=== PATIENT | male | born 1995 | race African-American/Black ===

== ENCOUNTER 2016-12-26 21:16 | Emergency (ER) | payer SELFPAY ==
[~2016-12-26] VITALS: Ht 182.9 cm; Wt 77.0 kg
[~2016-12-26 21:16] MED LIST: CLIN150 PO; CONTOUR NEXT EZ BLEZ XX; DOCU1CAP39 PO; GLUCOMETER XX; GLUCOMTESTSTRIPS XX; IBUP600 PO; LACT20SO4 PO; LEVEMIR SQ; LISI10 PO; OMEP20TA39 PO; OXYC1SOL5 PO; RANI150 PO; Z.0.WALKERFRONT; insulin syringes SQ; syringes for insulin SQ
[2016-12-26 21:19] VITALS: BP 163/100; PULSE 114; RESP 16; TEMP 97.9; O2SAT 99
[2016-12-26] MEDS ORDERED: SODIUM CHLOR 0.9% 1000 ML INJ 1,000 ML IV SCH (21:49)
--- NOTE | 2016-12-26 21:57 | PD ---
HPI Chief Complaint: Pain: Acute or Chronic Time Seen by Provider: 21:52 Travel History International Travel<30 days: No Contact w/Intl Traveler<30days: No Traveled to known affect area: No History of Present Illness HPI Patient comes in complaining of intermittent rib, right upper quadrant, and epigastric pain ongoing since September. Pain is more constant over the past 2 weeks. Patient has been taking ibuprofen with no improvement of symptoms. Pain is worse with deep inspiration and certain movement as well as eating or drinking too much. Patient states he contacted his primary care doctor in November prescribed naproxen that did not seem to help his symptoms. Patient denies any trauma, fevers, nausea, vomiting, loss change in bowel or bladder, back pain, numbness or tingling anywhere, or anything anything similar to this in the past. Patient reports he is a type I diabetic and has HIV that is not currently detectable. Patient is uncertain how he got HIV denies any IV drug use. PFSH Past Medical History Hx Anticoagulant Therapy: No Arthritis: No Asthma: No Autoimmune Disease: No Heart Rhythm Problems: No Cancer: No Cardiovascular Problems: No High Cholesterol: No Chemotherapy: No Chest Pain: No Congestive Heart Failure: No COPD: No Cerebrovascular Accident: No Diabetes: Yes Endocrine: No GERD: No Genitourinary: No Hiatal Hernia: No Immune Disorder: No Kidney Stones: No Musculoskeletal: No Neurologic: No Psychiatric: No Reproductive: No Respiratory: No Migraines: Yes Radiation Therapy: No Renal Failure: No Seizures: No Sickle Cell Disease: No Sleep Apnea: No Thyroid Disease: No Ulcer: No Past Surgical History Abdominal Surgery: No AICD: No Arteriovenous Shunt: No Cardiac Surgery: No Ear Surgery: No Endocrine Surgery: No Eye Surgery: No Genitourinary Surgery: No Gynecologic Surgery: No Insulin Pump: No Joint Replacement: No Oral Surgery: No Pacemaker: No Thoracic Surgery: No Other Surgery: Yes (HERNIA REPAIR ) Social History Alcohol Use: No Tobacco Use: No Substance Use: No Allergies-Medications (Allergen,Severity, Reaction): Coded Allergies: No Known Allergies (Unverified , 12/26/16) Reported Meds & Prescriptions Reported Meds & Active Scripts Active Zantac (Ranitidine HCl) 150 Mg Tab 150 Mg PO BID Carafate Liq (Sucralfate) 1 Gm/10 Ml Susp 1 Gm PO QID on empty stomach Hm Omeprazole (Omeprazole) 20 Mg Tab 20 Mg PO DAILY 14 Days Cleocin (Clindamycin HCl) 150 Mg Cap 300 Mg PO Q6HR 14 Days Stop date 07/02/16 Levemir (Insulin Detemir) Inj 18 Units SQ DAILYAC 30 Days Levemir (Insulin Detemir) Inj 20 Units SQ HS 30 Days Zantac 150 Mg Tab (Ranitidine HCl) 150 Mg Tab 150 Mg PO Q12HR 10 Days Motrin 600 Mg Tab (Ibuprofen) 600 Mg Tab 600 Mg PO Q6HR Levemir (Insulin Detemir) Inj 18 Units SQ HS 30 Days Contour Next EZ Blood Glucose Meter (Device) Device 1 Unit XX DIRECTED Glucometer Test Strips (Glucomteststrips) Box 1 Box XX Glucometer Kit 1 Kit XX Walker Front Wheel (Z.0.TipTap) Device 1 Unit Lactulose 30 Ml Syrp 30 Ml PO TID 30 Days Colace 100 Mg Cap (Docusate Sodium) 100 Mg Cap 100 Mg PO Q12H 30 Days Prinivil 10 mg (Lisinopril) 10 Mg Tab 10 Mg PO DAILY 30 Days Oxycodone/Acetaminophen 5-325 mg/5Ml (Oxycodone W/ Acetaminophen) 5 mg/325 mg Tab 1 Tab PO Q6H PRN [insulin syringes] 1 Syringe SQ BID [syringes for insulin] Syringe SQ BID Review of Systems Except as stated in HPI: all other systems reviewed are Neg Physical Exam Narrative GENERAL: Well-developed, well nourished, in no acute distress, and non-ill appearing. SKIN: Warm and dry. HEAD: Atraumatic. Normocephalic. EYES: Pupils equal and round. EOMI. No scleral icterus. No injection or drainage. ENT: No nasal bleeding or discharge. Mucous membranes pink and moist. NECK: Trachea midline. Supple. No nuclear rigidity. CARDIOVASCULAR: Tachycardia rate with regular rhythm. No murmur appreciated. RESPIRATORY: No accessory muscle use. No respiratory distress. Clear to auscultation. Breath sounds equal bilaterally. GASTROINTESTINAL: Abdomen soft, nondistended. Hepatic and splenic margins not palpable. Normal bowel sounds 4. No pulsatile mass. Patient reports tenderness to palpation right upper quadrant and epigastric region. MUSCULOSKELETAL: No obvious deformities. No clubbing. No cyanosis. No edema. Full range of motion. NEUROLOGICAL: Awake and alert. No obvious cranial nerve deficits. Motor grossly within normal limits. Normal speech. PSYCHIATRIC: Appropriate mood and affect; insight and judgment normal. Data Data Last Documented VS Vital Signs Date Time Temp Pulse Resp B/P Pulse Ox O2 Delivery O2 Flow Rate FiO2 12/27/16 00:57 99 14 144/89 100 Room Air 12/26/16 21:19 97.9 Orders Complete Blood Count With Diff (12/26/16 21:49) Comprehensive Metabolic Panel (12/26/16 21:49) Lipase (12/26/16 21:49) Prothrombin Time / Inr (Pt) (12/26/16 21:49) Act Partial Throm Time (Ptt) (12/26/16 21:49) Urinalysis - C+S If Indicated (12/26/16 21:49) Iv Access Insert/Monitor (12/26/16 21:49) Ecg Monitoring (12/26/16 21:49) Oximetry (12/26/16 21:49) Sodium Chlor 0.9% 1000 Ml Inj (Ns 1000 M (12/26/16 21:49) Sodium Chloride 0.9% Flush (Ns Flush) (12/26/16 22:00) Electrocardiogram (12/26/16 21:49) Chest, Single Ap (12/26/16 21:49) Magnesium (Mg) (12/26/16 21:49) Us Abdomen Gallbladder (12/26/16 ) Urine Culture (12/26/16 22:15) Azithromycin Powd Pack (Zithromax Powd P (12/27/16 00:00) Ceftriaxone Inj (Rocephin Inj) (12/27/16 00:00) Al-Mag Hy-Si 40-40-4 Mg/Ml Liq (Mag-Al P (12/27/16 00:00) Lidocaine 2% Viscous (Xylocaine 2% Visco (12/27/16 00:00) Labs Laboratory Tests Test 12/26/16 12/26/16 22:12 22:15 White Blood Count 5.2 TH/MM3 Red Blood Count 4.36 MIL/MM3 Hemoglobin 13.6 GM/DL Hematocrit 38.6 % Mean Corpuscular Volume 88.5 FL Mean Corpuscular Hemoglobin 31.2 PG Mean Corpuscular Hemoglobin 35.3 % Concent Red Cell Distribution Width 13.7 % Platelet Count 222 TH/MM3 Mean Platelet Volume 7.2 FL Neutrophils (%) (Auto) 46.0 % Lymphocytes (%) (Auto) 42.6 % Monocytes (%) (Auto) 10.9 % Eosinophils (%) (Auto) 0.2 % Basophils (%) (Auto) 0.3 % Neutrophils # (Auto) 2.4 TH/MM3 Lymphocytes # (Auto) 2.2 TH/MM3 Monocytes # (Auto) 0.6 TH/MM3 Eosinophils # (Auto) 0.0 TH/MM3 Basophils # (Auto) 0.0 TH/MM3 CBC Comment DIFF FINAL Differential Comment Prothrombin Time 10.4 SEC Prothromb Time International 0.9 RATIO Ratio Activated Partial 21.8 SEC Thromboplast Time Sodium Level 140 MEQ/L Potassium Level 4.3 MEQ/L Chloride Level 105 MEQ/L Carbon Dioxide Level 27.7 MEQ/L Anion Gap 7 MEQ/L Blood Urea Nitrogen 13 MG/DL Creatinine 0.82 MG/DL Estimat Glomerular Filtration 144 ML/MIN Rate Random Glucose 126 MG/DL Calcium Level 8.9 MG/DL Magnesium Level 2.1 MG/DL Total Bilirubin 0.4 MG/DL Aspartate Amino Transf 66 U/L (AST/SGOT) Alanine Aminotransferase 62 U/L (ALT/SGPT) Alkaline Phosphatase 62 U/L Total Protein 8.7 GM/DL Albumin 3.5 GM/DL Lipase 56 U/L Urine Color YELLOW Urine Turbidity CLEAR Urine pH 6.0 Urine Specific [place] 1.024 Urine Protein 100 mg/dL Urine Glucose (UA) TRACE mg/dL Urine Ketones NEG mg/dL Urine Occult Blood MOD Urine Nitrite NEG Urine Bilirubin NEG Urine Urobilinogen LESS THAN 2.0 MG/DL Urine Leukocyte Esterase NEG Urine RBC 26 /hpf Urine WBC 25 /hpf Urine Squamous Epithelial <1 /hpf Cells Urine Bacteria OCC /hpf Urine Hyaline Casts 1 /lpf Urine Mucus FEW /lpf Microscopic Urinalysis Comment CULTURE INDICATED MDM Medical Decision Making Medical Screen Exam Complete: Yes Emergency Medical Condition: Yes Interpretation(s) EKG reviewed by Dr. Ward, shows sinus tachycardia with ventricular rate of 111. No STEMI. Differential Diagnosis Pancreatitis, hepatitis, biliary colic, cholecystitis, pneumonia, pneumothorax, costochondritis, dehydration, other Narrative Course The patient presented with upper epigastric abdominal pain suspicious for gastritis. There was no significant history of diarrhea and no fever. The patient appeared comfortable, well hydrated and the abdominal exam was minimally tender to me. Laboratory and radiographic/sonographic evaluation revealed no significant abnormality. There was no evidence of an acute, surgical abdomen at this time. There was no clinical evidence to support cholecystitis/cholelithiasis, pancreatitis, perforation of gastric ulcer, colitis, diverticulitis, bacterial peritonitis, obstruction, volvulus, early appendicitis, or hernial incarceration or strangulation nor significant GIB at this time. There was no evidence to support vascular pathology such as AAA, mesenteric ischemia. There was also no clinical evidence by history, exam or risk factors to suggest atypical presentation of cardiac disease such as ACS, AMI or atypical angina. During the course of the ED visit, the patient noted improvement. Clinical picture was discussed with the patient, as well as plan of care. The patient was instructed to follow up with their physician and GI. Abdominal pain warnings were discussed with the patient. The patient is to return if worsens, pain worsens or changes, develop fever, inability to tolerate fluids with or without vomiting, unable to establish follow up or as needed. The patient agrees with plan. Patient in no obvious distress upon re-evaluation. All pertinent laboratory/ Radiology result(s) discussed with patient. Discussed patient with Dr. Ward, who saw and evaluated the patient and recommends sending patient with Carafate and Zantac after giving patient dose of Rocephin, Zithromax, and a GI cocktail here. Any questions/concerns in reference to patient diagnosis/condition discussed and clarified prior to patient's discharge. Reinforced sheer importance of close follow up with patient's primary physician or primary care clinic and GI. Instructed patient to return to ED immediately, if symptoms return/worsen. Pt showed understanding of above instructions. Further instructions and recommendations were detailed in discharge paperwork. Pt ambulated without difficulty out of ED at discharge. Diagnosis Primary Impression: Epigastric abdominal pain Additional Impressions: UTI (urinary tract infection) Qualified Code: N39.0 - Urinary tract infection with hematuria, site unspecified Sludge in gallbladder Referrals: Tyler Reed MD Patient Instructions: Epigastric Pain (ED), General Instructions, Urinary Tract Infection in Men (DC) Additional Instructions: Follow-up with your primary care physician and GI next week. Take all medication as prescribed. Return to the emergency department if symptoms get worse. Med/Other Pt SpecificInfo: Prescription(s) given Scripts Ranitidine (Zantac)150 Mg Pvl251 Mg PO BID #60 TAB Ref 0 Prov:Cheli Ward MD 12/26/16 Sucralfate Liq (Carafate Liq)1 Gm/10 Ml Susp1 Gm PO QID #1200 ML Ref 0 on empty stomach Prov:Cheli Ward MD 12/26/16 Disposition: 01 DISCHARGE HOME Condition: Stable Austen Poole Dec 26, 2016 21:57
[2016-12-26] MEDS ORDERED: SODIUM CHLORIDE 0.9% FLUSH 5 ML FLUSH IVF PRN (22:00)
--- NOTE | 2016-12-26 22:06 | RADRPT ---
EXAM DATE/TIME: 12/26/2016 22:02 [facility] COMPARISON: CHEST SINGLE AP, June 06, 2016, 10:51. INDICATIONS : Chest pain, denies injury MEDICAL HISTORY : Diabetes mellitus type I. SURGICAL HISTORY : None. Hydrocele ENCOUNTER: Initial ACUITY: 3 months PAIN SCORE: 8/10 LOCATION: chest FINDINGS: A single view of the chest demonstrates the lungs to be symmetrically aerated without evidence of mas s, infiltrate or effusion. The cardiomediastinal contours are unremarkable. Osseous structures are intact. CONCLUSION: No evidence of acute cardiopulmonary disease. Lucas Montano MD on December 26, 2016 at 22:05 Board Certified Radiologist. This report was verified electronically.
[2016-12-26 22:26] LABS: AUTOMATED NEUTROPHIL # 2.4 TH/MM3 (1.8-7.7); BASOPHIL % 0.3 % (0.0-2.0); EOSINOPHIL % 0.2 % (0.0-4.0); HEMATOCRIT 38.6 % (39.0-51.0); HEMO FLAGS DIFF FINAL; LYMPH % 42.6 % (9.0-44.0); LYMPHOCYTE # 2.2 TH/MM3 (1.0-4.8); MEAN CELL VOLUME 88.5 FL (80.0-100.0); MEAN CORPUSCULAR HEMOGLOBIN 31.2 PG (27.0-34.0); MEAN CORPUSCULAR HGB CONC 35.3 % (32.0-36.0); MONO % 10.9 % (0.0-8.0); PLATELET COUNT 222 TH/MM3 (150-450); RED BLOOD COUNT 4.36 MIL/MM3 (4.50-5.90); RED CELL DISTRIBUTION WIDTH 13.7 % (11.6-17.2); WHITE BLOOD COUNT 5.2 TH/MM3 (4.0-11.0)
[2016-12-26 22:41] LABS: BACTERIA, URINE OCC /hpf; BLOOD, URINE MOD (NEG); COMMENT (UR) CULTURE INDICATED; CULTURE IF INDICATED CULTURE INDICATED; GLUCOSE,URINE TRACE mg/dL (NEG); HYALINE CAST, URINE 1 /lpf (RARE); KETONE, URINE NEG (NEG); MUCUS URINE FEW /lpf (OCC); NITRITE,URINE NEG (NEG); SQUAMOUS EPITHELIAL CELL URINE <1 /hpf (0-5); URINE COLOR YELLOW (YELLW/STRAW)
[2016-12-26 22:56] LABS: APTT (PATIENT) 21.8 SEC (24.3-30.1); INTERNATIONAL NORMALIZED RATIO 0.9 RATIO; PROTHROMBIN TIME - PATIENT 10.4 SEC (9.8-11.6)
[2016-12-26 22:57] LABS: ALT (GPT) 62 U/L (12-78); ANION GAP 7 MEQ/L (5-15); AST (GOT) 66 U/L (15-37); BICARBONATE 27.7 MEQ/L (21.0-32.0); BLOOD UREA NITROGEN 13 MG/DL (7-18); CHLORIDE 105 MEQ/L (98-107); GLOMERULAR FILTRATION RATE 144 ML/MIN (>89); MAGNESIUM 2.1 MG/DL (1.5-2.5); POTASSIUM 4.3 MEQ/L (3.5-5.1); SODIUM (NA) 140 MEQ/L (136-145)
[2016-12-26 22:59] LABS: ALKALINE PHOSPHATASE 62 U/L (45-117); TOTAL BILIRUBIN ADULT 0.4 MG/DL (0.2-1.0)
--- NOTE | 2016-12-26 23:27 | RADRPT ---
EXAM DATE/TIME: 12/26/2016 22:39 [facility] COMPARISON: No previous studies available for comparison. INDICATIONS : Right upper quadrant pain. MEDICAL HISTORY : Kidney infection. Migraines. Diabetes. Post traumatic stress disorder. SURGICAL HISTORY : Hernia repair. ENCOUNTER: Initial ACUITY: 2 weeks PAIN SCORE: 8/10 LOCATION: Right upper quadrant MEASUREMENTS: LIVER: 16.3 cm length COMMON DUCT: 3 mm RIGHT KIDNEY: 11.7 x 6.3 x 5.3 cm FINDINGS: LIVER: Normal echotexture without focal lesion or ductal dilatation. Hepatopedal flow is seen in the portal vein. COMMON DUCT: No intraluminal mass or stone visualized. GALLBLADDER: Contains no stones, demonstrates no wall thickening or pericholecystic fluid. Mild amount of echogeni c sludge in the lumen. Negative sonographic Momin's sign. PANCREAS: The visualized portions are within normal limits. RIGHT KIDNEY: No evidence of hydronephrosis, stone, or mass. CONCLUSION: Mild amount of sludge within the gallbladder. No calcified stones. Normal dimension common hepatic duct. Adair Velez MD on December 26, 2016 at 23:24 Board Certified Radiologist. This report was verified electronically.
[2016-12-26] MEDS ORDERED: ZANT150T2 PO (23:54)
[2016-12-26] MEDS ORDERED: CARA1SUS3 PO (23:54)
[2016-12-27] MEDS ORDERED: AZITHROMYCIN PWD FOR SUSP 1 GM PACKET PO ONE
[2016-12-27] MEDS ORDERED: LIDOCAINE VISCOUS 2% SOLN 15 ML UDC PO ONE
[2016-12-27] MEDS ORDERED: ALUMINUM/MAGNESIUM/SIMETH 30 ML CUP PO ONE
[2016-12-27] MEDS ORDERED: cefTRIAXone INJ 1,000 MG in SODIUM CHLORIDE 0.9% INJ 100 ML IV ONE ×2
--- NOTE | 2016-12-27 00:18 | PD ---
Data Data Last Documented VS Vital Signs Date Time Temp Pulse Resp B/P Pulse Ox O2 Delivery O2 Flow Rate FiO2 12/26/16 22:27 114 12/26/16 21:19 97.9 16 163/100 99 Room Air Orders Complete Blood Count With Diff (12/26/16 21:49) Comprehensive Metabolic Panel (12/26/16 21:49) Lipase (12/26/16 21:49) Prothrombin Time / Inr (Pt) (12/26/16 21:49) Act Partial Throm Time (Ptt) (12/26/16 21:49) Urinalysis - C+S If Indicated (12/26/16 21:49) Iv Access Insert/Monitor (12/26/16 21:49) Ecg Monitoring (12/26/16 21:49) Oximetry (12/26/16 21:49) Sodium Chlor 0.9% 1000 Ml Inj (Ns 1000 M (12/26/16 21:49) Sodium Chloride 0.9% Flush (Ns Flush) (12/26/16 22:00) Electrocardiogram (12/26/16 21:49) Chest, Single Ap (12/26/16 21:49) Magnesium (Mg) (12/26/16 21:49) Us Abdomen Gallbladder (12/26/16 ) Urine Culture (12/26/16 22:15) Azithromycin Powd Pack (Zithromax Powd P (12/27/16 00:00) Ceftriaxone Inj (Rocephin Inj) (12/27/16 00:00) Al-Mag Hy-Si 40-40-4 Mg/Ml Liq (Mag-Al P (12/27/16 00:00) Lidocaine 2% Viscous (Xylocaine 2% Visco (12/27/16 00:00) Labs Laboratory Tests Test 12/26/16 12/26/16 22:12 22:15 White Blood Count 5.2 TH/MM3 Red Blood Count 4.36 MIL/MM3 Hemoglobin 13.6 GM/DL Hematocrit 38.6 % Mean Corpuscular Volume 88.5 FL Mean Corpuscular Hemoglobin 31.2 PG Mean Corpuscular Hemoglobin 35.3 % Concent Red Cell Distribution Width 13.7 % Platelet Count 222 TH/MM3 Mean Platelet Volume 7.2 FL Neutrophils (%) (Auto) 46.0 % Lymphocytes (%) (Auto) 42.6 % Monocytes (%) (Auto) 10.9 % Eosinophils (%) (Auto) 0.2 % Basophils (%) (Auto) 0.3 % Neutrophils # (Auto) 2.4 TH/MM3 Lymphocytes # (Auto) 2.2 TH/MM3 Monocytes # (Auto) 0.6 TH/MM3 Eosinophils # (Auto) 0.0 TH/MM3 Basophils # (Auto) 0.0 TH/MM3 CBC Comment DIFF FINAL Differential Comment Prothrombin Time 10.4 SEC Prothromb Time International 0.9 RATIO Ratio Activated Partial 21.8 SEC Thromboplast Time Sodium Level 140 MEQ/L Potassium Level 4.3 MEQ/L Chloride Level 105 MEQ/L Carbon Dioxide Level 27.7 MEQ/L Anion Gap 7 MEQ/L Blood Urea Nitrogen 13 MG/DL Creatinine 0.82 MG/DL Estimat Glomerular Filtration 144 ML/MIN Rate Random Glucose 126 MG/DL Calcium Level 8.9 MG/DL Magnesium Level 2.1 MG/DL Total Bilirubin 0.4 MG/DL Aspartate Amino Transf 66 U/L (AST/SGOT) Alanine Aminotransferase 62 U/L (ALT/SGPT) Alkaline Phosphatase 62 U/L Total Protein 8.7 GM/DL Albumin 3.5 GM/DL Lipase 56 U/L Urine Color YELLOW Urine Turbidity CLEAR Urine pH 6.0 Urine Specific [place] 1.024 Urine Protein 100 mg/dL Urine Glucose (UA) TRACE mg/dL Urine Ketones NEG mg/dL Urine Occult Blood MOD Urine Nitrite NEG Urine Bilirubin NEG Urine Urobilinogen LESS THAN 2.0 MG/DL Urine Leukocyte Esterase NEG Urine RBC 26 /hpf Urine WBC 25 /hpf Urine Squamous Epithelial <1 /hpf Cells Urine Bacteria OCC /hpf Urine Hyaline Casts 1 /lpf Urine Mucus FEW /lpf Microscopic Urinalysis Comment CULTURE INDICATED MDM Supervised Visit with [facility]EL[facility]: Yes Narrative Course The history, exam, and medical decision-making in the associated midlevel provider note were completed with my assistance. I reviewed and agree with the findings presented. I attest that I had a [id number] encounter with the patient on the same day, and personally performed and documented my assessment and findings in the medical record. *My assessment and Findings: This is a 21-year-old male who has a history of type 1 diabetes and HIV who presents to the emergency department with 2 months of pain primarily in his epigastrium that radiates under both ribs, worse with eating and worse with taking deep breaths. He says he's been struggling with insomnia recently and it's been waking him up in the middle the night. He does have extensive history of medical problems including septic arthritis, and diabetic foot infections. He was placed on a monitor and an IV was established. Labs were obtained which were all reassuring. A right upper quadrant ultrasound was performed which was negative for cholecystitis. He is quite tender in the epigastrium. I suspect the patient may have gastritis or peptic ulcer disease which is causing his symptoms. His symptoms are subacute. I don't suspect a cardiac etiology based on the description of the symptoms. I considered pulmonary embolism but he is not hypoxic and this wouldn't explain the tenderness in his abdomen. I think the patient would most benefit by follow -up with outpatient gastroenterology for an endoscopy. I think he's safe for outpatient evaluation. He does have some white cells in his urine. He'll be treated empirically for possible urethritis but otherwise he doesn't look systemically ill. Scripts Ranitidine (Zantac)150 Mg Mnd255 Mg PO BID #60 TAB Ref 0 Prov:Cheli Ward MD 12/26/16 Sucralfate Liq (Carafate Liq)1 Gm/10 Ml Susp1 Gm PO QID #1200 ML Ref 0 on empty stomach Prov:Cheli Ward MD 12/26/16 Cheli Ward MD Dec 27, 2016 00:17
[2016-12-27 00:57] VITALS: BP 144/89; PULSE 99; RESP 14; O2SAT 100
--- NOTE | 2016-12-27 19:39 | EKG ---
Date Performed: 12/26/2016 Time Performed: 21:02:31 PTAGE: 21 years EKG: SINUS TACHYCARDIA NONSPECIFIC T-WAVE ABNORMALITY ABNORMAL RHYTHM ECG NO PREVIOUS TRACING DOCTOR: Nelson Dunn Interpretating Date/Time 12/27/2016 19:39:00
== END 2016-12-27 01:03 | disposition home or self-care (01) ==
LOC: NEPB 21:16
DX: R10.13 Epigastric pain (principal); N39.0 Urinary tract infection, site not specified; K82.9 Disease of gallbladder, unspecified; R94.31 Abnormal electrocardiogram [ECG] [EKG]
CPT/HCPCS: 71010; 76705; 80053; 81001; 83690; 83735; 85025; 85610; 85730; 87086; 93005; 96361; 96365; 99284; J0696; J7030

== ENCOUNTER 2017-12-22 22:35 | Emergency (ER) | payer BC ==
[~2017-12-22] VITALS: Ht 185.4 cm; Wt 95.0 kg
[~2017-12-22 22:35] MED LIST changes: +CARA1SUS3 PO; +DIAZ5 PO; +ELVI1TAB3 PO; +LISI10TA3 PO; +NAPR500 PO; +PANT40TA3 PO; +ZANT150T2 PO
[2017-12-22 23:01] VITALS: BP 159/77; PULSE 89; RESP 16; TEMP 98; O2SAT 99
--- NOTE | 2017-12-22 23:47 | PD ---
HPI Chief Complaint: Injury Time Seen by Provider: 23:34 Travel History International Travel<30 days: No Contact w/Intl Traveler<30days: No Traveled to known affect area: No History of Present Illness HPI 22-year-old black male presents to emergency Department with complaints of an avulsion of his left great toenail. The patient states that he has a history of insulin-dependent diabetes, and HIV. He states that he has not been able to stop the bleeding. It is minimal. He does not check his sugars. He states that he is compliant with his medications. Patient attends college here in [facility] Past Medical History Narrative Medical IDDM, HIV positive Hx Anticoagulant Therapy: No Arthritis: No Asthma: No Autoimmune Disease: No Heart Rhythm Problems: No Cancer: No Cardiovascular Problems: No High Cholesterol: No Chemotherapy: No Chest Pain: No Congestive Heart Failure: No COPD: No Cerebrovascular Accident: No Diabetes: Yes Patient Takes Glucophage: No Diminished Hearing: No Endocrine: No GERD: No Genitourinary: No Headaches: Yes Hiatal Hernia: No Hypertension: Yes Immune Disorder: Yes (HIV) Kidney Stones: No Musculoskeletal: No Neurologic: No Psychiatric: No Reproductive: No Respiratory: No Migraines: Yes Radiation Therapy: No Renal Failure: No Seizures: No Sickle Cell Disease: No Sleep Apnea: No Thyroid Disease: No Ulcer: No Tetanus Vaccination: Unknown Influenza Vaccination: No Past Surgical History Abdominal Surgery: No AICD: No Arteriovenous Shunt: No Cardiac Surgery: No Ear Surgery: No Endocrine Surgery: No Eye Surgery: No Genitourinary Surgery: No Gynecologic Surgery: No Insulin Pump: No Joint Replacement: No Oral Surgery: No Pacemaker: No Thoracic Surgery: No Other Surgery: Yes Social History Alcohol Use: Yes (OCC) Tobacco Use: No Substance Use: No Allergies-Medications (Allergen,Severity, Reaction): Coded Allergies: piperacillin (Unverified Allergy, Severe, Hives, 12/22/17) Given Zosyn and Toradol at same time with allergic reaction of hives; uncertain at this time which drug caused the allergic reaction tazobactam (Unverified Allergy, Severe, Hives, 12/22/17) Given Zosyn and Toradol at same time with allergic reaction of hives; uncertain at this time which drug caused the allergic reaction ketorolac (Unverified Allergy, Unknown, Hives, 12/22/17) Given Zosyn and Toradol at same time with allergic reaction of hives; uncertain at this time which drug caused the allergic reaction Reported Meds & Prescriptions Reported Meds & Active Scripts Active Zantac (Ranitidine HCl) 150 Mg Tab 150 Mg PO BID Carafate Liq (Sucralfate) 1 Gm/10 Ml Susp 1 Gm PO QID on empty stomach Hm Omeprazole (Omeprazole) 20 Mg Tab 20 Mg PO DAILY 14 Days Cleocin (Clindamycin HCl) 150 Mg Cap 300 Mg PO Q6HR 14 Days Stop date 07/02/16 Levemir (Insulin Detemir) Inj 18 Units SQ DAILYAC 30 Days Levemir (Insulin Detemir) Inj 20 Units SQ HS 30 Days Zantac 150 Mg Tab (Ranitidine HCl) 150 Mg Tab 150 Mg PO Q12HR 10 Days Motrin 600 Mg Tab (Ibuprofen) 600 Mg Tab 600 Mg PO Q6HR Levemir (Insulin Detemir) Inj 18 Units SQ HS 30 Days Contour Next EZ Blood Glucose Meter (Device) Device 1 Unit XX DIRECTED Glucometer Test Strips (Glucomteststrips) Box 1 Box XX Glucometer Kit 1 Kit XX Walker Front Wheel ([facility]) Device 1 Unit Lactulose 30 Ml Syrp 30 Ml PO TID 30 Days Colace 100 Mg Cap (Docusate Sodium) 100 Mg Cap 100 Mg PO Q12H 30 Days Prinivil 10 mg (Lisinopril) 10 Mg Tab 10 Mg PO DAILY 30 Days Oxycodone/Acetaminophen 5-325 mg/5Ml (Oxycodone W/ Acetaminophen) 5 mg/325 mg Tab 1 Tab PO Q6H PRN [insulin syringes] 1 Syringe SQ BID [syringes for insulin] Syringe SQ BID Naprosyn (Naproxen) 500 Mg Tab 500 Mg PO BID 10 Days Valium (Diazepam) 5 Mg Tab 5 Mg PO TID PRN Pantoprazole (Pantoprazole Sodium) 40 Mg Tab 40 Mg PO Q12HR 30 Days Lisinopril 10 Mg Tab 10 Mg PO DAILY 30 Days Reported Levemir Inj (Insulin Detemir) 1,000 unit/ 10 ML Vial 19 Units SQ DAILY Do not mix with any other Insulin. Levemir Inj (Insulin Detemir) 1,000 unit/ 10 ML Vial 21 Units SQ HS Do not mix with any other Insulin. Genvoya (Vrcnhmbcpspx-Gqihnibdgr-Ybqhnaeacqbn-Tenofvir) [phone] Mg Tab 1 Tab PO DAILY Review of Systems Except as stated in HPI: all other systems reviewed are Neg Physical Exam Narrative GENERAL: This is a well-nourished, well-developed patient, in no apparent distress. SKIN: No rashes, ecchymoses or lesions. Warm and dry. HEAD: Atraumatic. Normocephalic. EYES: PERRL, EOMI, no discharge or injection. No scleral icterus. EARS: Clear NOSE: Nasal turbinates appear normal. THROAT: Mucosa pink and moist. Airway patent. NECK: Trachea midline. supple, moves head freely. LUNGS: Clear to auscultation. CV: Regular in rhythm. ABDOMEN: Soft nontender. EXT: No clubbing cyanosis or edema. Left foot reveals a avulsion great toenail without complications. There is no active bleeding. 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 Data Data Last Documented VS Vital Signs Date Time Temp Pulse Resp B/P (MAP) Pulse Ox O2 Delivery O2 Flow Rate FiO2 12/22/17 23:01 98.0 89 16 159/77 (104) 99 Orders Orders Blood Glucose (12/22/17 23:47) Insulin Aspart Inj (Novolog Inj) (12/23/17 00:15) MDM Medical Decision Making Medical Screen Exam Complete: Yes Emergency Medical Condition: Yes Medical Record Reviewed: Yes Interpretation(s) Be GL 339. Differential Diagnosis MDM: High Differential diagnoses: Fracture, sprain, strain, dislocation, contusion, neurovascular injury, nail avulsion Narrative Course Patient's wound is dressed on his foot. There is no bleeding. His Accu-Chek shows a BGL at 339. He is given 8 units of NovoLog subcutaneous. Diagnosis Primary Impression: left great toenail avulsion Additional Impressions: IDDM hyperglycemia Patient Instructions: General Instructions Additional Instructions: Rest. Daily wound care with soap, water, Neosporin. Checked her blood sugar again in 1-2 hours. Monitor blood sugar on a daily basis. Follow-up with a medical doctor in 2 days for recheck. Disposition: 01 DISCHARGE HOME Condition: Stable Luis Antonio Francis Dec 22, 2017 23:47
[2017-12-23] MEDS ORDERED: INSULIN ASPART 1,000 UNITS/10 ML VIAL SQ ONE (00:15)
== END 2017-12-23 01:01 | disposition home or self-care (01) ==
LOC: NEPK 22:35
DX: S91.202A Unspecified open wound of left great toe with damage to nail, initial encounter (principal); E11.65 Type 2 diabetes mellitus with hyperglycemia; B20 Human immunodeficiency virus [HIV] disease; I10 Essential (primary) hypertension; Z88.8 Allergy status to other drugs, medicaments and biological substances; Z79.4 Long term (current) use of insulin; Z79.899 Other long term (current) drug therapy
CPT/HCPCS: 96372; 99283; J1815

== ENCOUNTER 2018-07-06 01:01 | Inpatient (IN) ==
[2018-07-06 01:34] LABS: Baso # (Auto) 0.1 th/mm3 (0.0-0.2); Baso % (Auto) 1.4 % (0.0-2.0); Eos % (Auto) 0.1 % (0.0-4.0); Hematocrit 39.5 % (39.0-51.0); Hemoglobin 13.6 gm/dL (13.0-17.0); Lymph # (Auto) 2.1 th/mm3 (1.0-4.8); Mean Corpuscular HGB Conc 34.5 % (32.0-36.0); Mean Corpuscular Hemoglobin 31.6 pg (27.0-34.0); Mean Corpuscular Volume 91.5 fL (80.0-100.0); Mono # (Auto) 0.4 th/mm3 (0.0-0.9); Mono % (Auto) 6.1 % (0.0-8.0); Neut # (Auto) 4.7 th/mm3 (1.8-7.7); Neut % (Auto) 64.4 % (16.0-70.0); Platelet Count 217 th/mm3 (150-450); Red Blood Count 4.32 mil/mm3 (4.50-5.90); Red Cell Distribution Width 13.3 % (11.6-17.2); White Blood Count 7.3 th/mm3 (4.0-11.0)
[2018-07-06 01:50] LABS: VBG Base Excess 0.2 mmol/L (-2-2); VBG Blood Gas Oxygen Content 15.6 Vol % (9.0-17.0); VBG PCO2 40 mmHG (44-48); VBG PH 7.41 (7.360-7.400); VBG PO2 44 mmHG (35-40)
[2018-07-06 01:50] LABS: Beta Hydroxybutyric Acid 0.06 mmol/L (0.00-0.39)
--- NOTE | 2018-07-06 01:50 | XR ---
EXAM DATE: 07/06/2018 1:42 AM EDT AGE/SEX: 22 years / Male INDICATIONS: Shortness of breath. Confusion today. CLINICAL DATA: This is the patient's initial encounter. Patient reports that signs and symptoms have been present for 1 day and indicates a pain score of Nonresponsive. MEDICAL/SURGICAL HISTORY: . Diabetes mellitus type I. . Hydrocele [place] [facility] [place]. . FINDINGS: A single AP view of the chest demonstrates the lungs to be symmetrically aerated without evidence of mass, infiltrate or effusion. The cardiomediastinal contours are unremarkable. Osseous structures a re intact. CONCLUSION: No acute disease Electronically signed by: Lucas Harper MD 07/06/2018 1:49 AM EDT
[2018-07-06] MEDS: Sod Chloride 0.9% Inj 1,000 ML IV.CONT SCH ×3 (01:54→15:40)
[2018-07-06 02:05] LABS: Amphetamine Screen,Urine Neg (Neg); Barbiturate Screen,Urine Neg (Neg); Cannabinoid Screen,Urine Neg (Neg); Cocaine Screen,Urine Neg (Neg)
[2018-07-06 02:07] LABS: Amorphous Sediment,Urine Rare /hpf; Bacteria,Urine Rare /hpf; Bilirubin,Urine Negative (Negative); Clarity,Urine Hazy (Clear); Color,Urine Yellow (Yellw/Straw); Glucose,Urine (UA) 500 or Greater mg/dL (Negative); Hyaline Casts,Urine 5 /lpf (0-3); Leukocyte Esterase,Urine Negative (Negative); Mucus,Urine Few /lpf (Occasional); Nitrite,Urine Negative (Negative); Specific Gravity,Urine 1.018 (1.002-1.035)
[2018-07-06 02:08] LABS: Opiate Screen,Urine Neg (Neg)
[2018-07-06 02:09] LABS: Activated Partial Thrombo Time 20.3 sec (24.3-30.1); Prothrombin Time 10.3 sec (9.8-11.6)
--- NOTE | 2018-07-06 02:14 | CT ---
EXAM DATE: 07/06/2018 2:08 AM EDT AGE/SEX: 22 years / Male INDICATIONS: Altered mental status. CLINICAL DATA: This is the patient's initial encounter. Patient reports that signs and symptoms have been present for 1 day and indicates a pain score of Nonresponsive. MEDICAL/SURGICAL HISTORY: None. None. RADIATION DOSE: 41.57 CTDI (mGy) [place] [facility] [place]. . TECHNIQUE: CT of the head without contrast. Using automated exposure control and adjustment of the mA and/or kV according to patient size, radiation dose was kept as low as reasonably achievable to ob tain optimal diagnostic quality images. DICOM format image data is available electronically for revi ew and comparison. FINDINGS: Cerebrum: The ventricles are normal for age. No evidence of midline shift, mass lesion, hemorrhage or acute infarction. No extraaxial fluid collections are seen. Posterior Fossa: The cerebellum and brainstem are intact. The 4th ventricle is midline. The cerebe llopontine angle is unremarkable. Extracranial: The visualized portion of the orbits is intact. Skull: The calvaria is intact. No evidence of skull fracture. CONCLUSION: Negative CT Head non contrast. . Electronically signed by: Lucas Harper MD 07/06/2018 2:13 AM EDT
[2018-07-06] MEDS ORDERED: Labetalol HCl Inj 100 MG/20 ML Vial IV.PUSH ONE ×3 (03:01→12:00)
[2018-07-06] MEDS: KCL 40 mEq/D5W/NaCl 0.9% Inj 1,000 ML IV.CONT SCH ×2 (04:14→15:40)
[2018-07-06] MEDS ORDERED: Acetaminophen 325 MG Tablet PO PRN (04:44)
[2018-07-06] MEDS ORDERED: Bisacodyl 10 MG Supp RECTAL PRN (04:44)
--- NOTE | 2018-07-06 04:45 | ED ---
HPI General Chief Complaint: Altered Mental Status Stated Complaint: confusion Time Seen by Provider: 07/06/18 01:16 Source: EMS and other (school mates) Mode of arrival: EMS Limitations: altered mental status History of Present Illness HPI narrative: 22 year old male presents to the emergency department by EMS transport from his school dorm where he was found around 1030 by classmates with altered mentation. Patient was last seen normal prior to this at 9:30 PM. Patient is a type I diabetic and takes insulin. Patient reportedly uses no substances and had normal behavior at 930. Patient had no known injury or fall. Patient was found sitting in his chair slightly slumped forward. Schoolmates set him up in the chair but noticed that he had just a fixed stare and would not talk with them but appeared to follow some other activities with his eyes. Paramedics were called and noted the patient to be somewhat catatonic in his behavior. No evidence of injury. Patient was sitting upright in a chair. Vital signs were noted to be hypertensive and tachycardic. Patient was afebrile but blood sugar was in the low 70s. Patient was administered oral glucose with minimal response. Patient was subsequently administered D50. Patient's blood sugar increased to 290. Patient's mentation was unchanged. Patient was persistently identified to be and a sinus tachycardia. Patient was given IV fluids. Patient was transported without incident. Upon arrival patient appears somewhat paranoid but observed staff and bedside schoolmate friends behavior is cooperative and follows commands. Patient remains afebrile blood sugar is stable in the 130s. Unknown amount of insulin administered prior to onset of symptoms. Unknown ingestants. No reported recent febrile illness. MD complaint: altered mental status Onset (ago): hour(s) Timing confirmed by: other (classmates) Severity: moderate Consistency of symptoms: constant Context: alcohol abuse (none known), drug abuse (none known), change in medication (none known), trauma (none known) and diabetes (type I) Associated symptoms: other (unable to obtain) Treatments prior to arrival: glucose and IV fluid Related Data Home Medications Medication Instructions Recorded Confirmed insulin lispro protamin-lispro 1 sliding scale dose SUB-Q UD 07/06/18 07/06/18 [Humalog Mix 50-50 Insuln U-100] Allergies Allergy/AdvReac Type Severity Reaction Status Date / Time piperacillin Allergy Severe Hives Unverified 12/22/17 23:04 tazobactam Allergy Severe Hives Unverified 12/22/17 23:04 ketorolac Allergy Unknown Hives Unverified 12/22/17 23:04 Review of Systems ROS Unobtainable ROS Unobtainable: unobtainable due to mental status PMFSH Medical History Medical History Type 1 diabetes (Acute) Surgical History Surgical History No history of previous surgery (Acute) Social History Social History Second Hand Smoke Exposure: No Smoking Status: Unknown if ever smoked How Often Do You Have a Drink Containing Alcohol: Never Recent Travel in [facility] within the Last 8 Weeks: No Recent Out of Country Travel within the Last 8 Weeks: No Immunization History Tetanus Immunization: <5 Years Hx Influenza Vaccine This Season: Yes Exam Narrative Exam Narrative: GENERAL: Well-nourished, well-developed patient. No acute distress no respiratory distress GCS 10. SKIN: Focused skin assessment warm/dry. HEAD: Normocephalic. Atraumatic no scalp soft tissue swelling tenderness abrasion laceration or bony abnormality to palpation EYES: No scleral icterus. No injection or drainage. Bilateral pupils equal round reactive to light extraocular movements intact NECK: Supple, trachea midline. No JVD or lymphadenopathy. No meningismus no nuchal rigidity. CARDIOVASCULAR: Increased regular rate and rhythm without murmurs, gallops, or rubs. RESPIRATORY: Breath sounds equal bilaterally. No accessory muscle use. GASTROINTESTINAL: Abdomen soft, non-tender, nondistended. MUSCULOSKELETAL: No cyanosis, or edema. BACK: Nontender without obvious deformity. No CVA tenderness. 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 regarding admission for altered mental status delirium hypertension substance ingestion Time: 05:38 Initial Documented Vital Signs Temperature 97.8 F 07/06/18 01:22 Pulse Rate 115 H 07/06/18 01:22 Respiratory Rate 16 07/06/18 01:22 Blood Pressure 195/96 H 07/06/18 01:22 Pulse Oximetry 100 07/06/18 01:22 Last Documented Vital Signs Temperature 97.8 F 07/06/18 01:22 Pulse Rate 101 H 07/06/18 05:05 Respiratory Rate 16 07/06/18 05:05 Blood Pressure 187/79 H 07/06/18 05:05 Pulse Oximetry 100 07/06/18 05:05 Medical Decision Making [facility] Narrative Medical decision making narrative: 22-year-old male presents with altered mentation otherwise no focality on exam symmetric movement of upper extremities and lower extremities with purpose of all movement and follows some commands Medical Screen Exam Complete: Yes Emergency Medical Condition: Yes Differential Diagnosis Differential Diagnosis: Altered mental status, polysubstance ingestion, uncontrolled diabetes, metabolic disorder, encephalopathy, delirium Medical Records Medical records reviewed: Yes I reviewed the patient's medical records. Lab Data Lab results reviewed: Yes I reviewed the patient's lab results. Result diagrams: 07/06/18 01:20 Lab Results 07/06/18 07/06/18 07/06/18 Range/Units 01:09 01:20 01:20 WBC 7.3 (4.0-11.0) th/mm3 RBC 4.32 L (4.50-5.90) mil/mm3 Hgb 13.6 (13.0-17.0) gm/dL POC Hgb (Calc) (13.0-17.0) g/dL Hct 39.5 (39.0-51.0) % POC Hct (39-51.0) % MCV 91.5 (80.0-100.0) fL MCH 31.6 (27.0-34.0) pg MCHC 34.5 (32.0-36.0) % RDW 13.3 (11.6-17.2) % Plt Count 217 (150-450) th/mm3 MPV 8.0 (7.0-11.0) fL Neut % (Auto) 64.4 (16.0-70.0) % Lymph % (Auto) 28.0 (9.0-44.0) % [place] % (Auto) 6.1 (0.0-8.0) % Eos % (Auto) 0.1 (0.0-4.0) % Baso % (Auto) 1.4 (0.0-2.0) % Neut # (Auto) 4.7 (1.8-7.7) th/mm3 Lymph # (Auto) 2.1 (1.0-4.8) th/mm3 [place] # (Auto) 0.4 (0.0-0.9) th/mm3 Eos # (Auto) 0.0 (0.0-0.4) th/mm3 Baso # (Auto) 0.1 (0.0-0.2) th/mm3 WBC Differential . Differential Comment Auto diff final PT 10.3 (9.8-11.6) sec INR 1.0 Ratio APTT 20.3 L (24.3-30.1) sec Puncture Site Patient Temperature VBG pH (7.360-7.400) VBG pCO2 (44-48) mmHG VBG pO2 (35-40) mmHG VBG HCO3 (22-26) mmol/L VBG O2 Saturation (70-76) % VBG O2 Content (9.0-17.0) Vol % VBG Base Excess (-2-2) mmol/L VBG Carboxyhemoglobin (0-4) % VBG Methemoglobin (0-2) % Hemoglobin (12.0-16.0) G/DL O2 Delivery Device Inspired O2 % Critical Value POC Sodium (137-144) mmol/L POC Potassium (3.6-5.0) mmol/L POC Chloride (102-111) mmol/L POC BUN (5-21) mg/dL POC Creatinine (0.6-1.3) mg/dL POC Glucose 113 H (68-110) mg/dl Total Bilirubin (0.2-1.0) mg/dL Direct Bilirubin (0.0-0.2) mg/dL Indirect Bilirubin (0.0-0.8) mg/dL AST (15-37) U/L ALT (12-78) U/L Alkaline Phosphatase (45-117) U/L Troponin I (0.02-0.05) ng/mL Total Protein (6.4-8.2) g/dL Albumin (3.4-5.0) g/dL Beta-Hydroxybutyric Acd (0.00-0.39) mmol/L TSH (0.358-3.740) uIU/mL Urine Color (Yellw/Straw) Urine Clarity (Clear) Urine pH (5.0-8.5) Ur Specific Honor (1.002-1.035) Urine Protein (Neg-Trace) mg/dL Urine Glucose (UA) (Negative) mg/dL Urine Ketones (Negative) mg/dL Urine Occult Blood (Negative) Urine Nitrate (Negative) Urine Bilirubin (Negative) Urine Urobilinogen (Less than 2) mg/dL Ur Leukocyte Esterase (Negative) Urine RBC (0-3) /hpf Urine WBC (0-5) /hpf Amorphous Sediment (None) /hpf Urine Bacteria (None) /hpf Hyaline Casts (0-3) /lpf Granular Casts (None) /lpf Urine Mucus (Occasional) /lpf Micro UA Comment Ur Microscopic Review Urine Culture Comments Salicylates (2.8-20.0) mg/dL Urine Opiates Screen (Neg) Acetaminophen (10.0-30.0) mcg/mL Ur Barbiturates Screen (Neg) Ur Amphetamines Screen (Neg) U Benzodiazepines Scrn (Neg) Urine Cocaine Screen (Neg) U Cannabinoids Screen (Neg) Serum Alcohol (0-5) mg/dL 07/06/18 07/06/18 07/06/18 Range/Units 01:20 01:20 01:20 WBC (4.0-11.0) th/mm3 RBC (4.50-5.90) mil/mm3 Hgb (13.0-17.0) gm/dL POC Hgb (Calc) 12.9 L (13.0-17.0) g/dL Hct (39.0-51.0) % POC Hct 38.0 L (39-51.0) % MCV (80.0-100.0) fL MCH (27.0-34.0) pg MCHC (32.0-36.0) % RDW (11.6-17.2) % Plt Count (150-450) th/mm3 MPV (7.0-11.0) fL Neut % (Auto) (16.0-70.0) % Lymph % (Auto) (9.0-44.0) % [place] % (Auto) (0.0-8.0) % Eos % (Auto) (0.0-4.0) % Baso % (Auto) (0.0-2.0) % Neut # (Auto) (1.8-7.7) th/mm3 Lymph # (Auto) (1.0-4.8) th/mm3 [place] # (Auto) (0.0-0.9) th/mm3 Eos # (Auto) (0.0-0.4) th/mm3 Baso # (Auto) (0.0-0.2) th/mm3 WBC Differential Differential Comment PT (9.8-11.6) sec INR Ratio APTT (24.3-30.1) sec Puncture Site Patient Temperature VBG pH (7.360-7.400) VBG pCO2 (44-48) mmHG VBG pO2 (35-40) mmHG VBG HCO3 (22-26) mmol/L VBG O2 Saturation (70-76) % VBG O2 Content (9.0-17.0) Vol % VBG Base Excess (-2-2) mmol/L VBG Carboxyhemoglobin (0-4) % VBG Methemoglobin (0-2) % Hemoglobin (12.0-16.0) G/DL O2 Delivery Device Inspired O2 % Critical Value POC Sodium 138 (137-144) mmol/L POC Potassium 3.3 L (3.6-5.0) mmol/L POC Chloride 102 (102-111) mmol/L POC BUN 16 (5-21) mg/dL POC Creatinine 1.3 (0.6-1.3) mg/dL POC Glucose 123 H (68-110) mg/dl Total Bilirubin 0.2 (0.2-1.0) mg/dL Direct Bilirubin 0.1 (0.0-0.2) mg/dL Indirect Bilirubin 0.1 (0.0-0.8) mg/dL AST 49 H (15-37) U/L ALT 55 (12-78) U/L Alkaline Phosphatase 87 (45-117) U/L Troponin I Less than 0.02 L (0.02-0.05) ng/mL Total Protein 8.0 (6.4-8.2) g/dL Albumin 3.6 (3.4-5.0) g/dL Beta-Hydroxybutyric Acd 0.06 (0.00-0.39) mmol/L TSH 2.170 (0.358-3.740) uIU/mL Urine Color (Yellw/Straw) Urine Clarity (Clear) Urine pH (5.0-8.5) Ur Specific Honor (1.002-1.035) Urine Protein (Neg-Trace) mg/dL Urine Glucose (UA) (Negative) mg/dL Urine Ketones (Negative) mg/dL Urine Occult Blood (Negative) Urine Nitrate (Negative) Urine Bilirubin (Negative) Urine Urobilinogen (Less than 2) mg/dL Ur Leukocyte Esterase (Negative) Urine RBC (0-3) /hpf Urine WBC (0-5) /hpf Amorphous Sediment (None) /hpf Urine Bacteria (None) /hpf Hyaline Casts (0-3) /lpf Granular Casts (None) /lpf Urine Mucus (Occasional) /lpf Micro UA Comment Ur Microscopic Review Urine Culture Comments Salicylates 1.9 L (2.8-20.0) mg/dL Urine Opiates Screen (Neg) Acetaminophen Less than 2.0 L (10.0-30.0) mcg/mL Ur Barbiturates Screen (Neg) Ur Amphetamines Screen (Neg) U Benzodiazepines Scrn (Neg) Urine Cocaine Screen (Neg) U Cannabinoids Screen (Neg) Serum Alcohol Less than 3 (0-5) mg/dL 07/06/18 07/06/18 07/06/18 Range/Units 01:35 01:50 01:50 WBC (4.0-11.0) th/mm3 RBC (4.50-5.90) mil/mm3 Hgb (13.0-17.0) gm/dL POC Hgb (Calc) (13.0-17.0) g/dL Hct (39.0-51.0) % POC Hct (39-51.0) % MCV (80.0-100.0) fL MCH (27.0-34.0) pg MCHC (32.0-36.0) % RDW (11.6-17.2) % Plt Count (150-450) th/mm3 MPV (7.0-11.0) fL Neut % (Auto) (16.0-70.0) % Lymph % (Auto) (9.0-44.0) % [place] % (Auto) (0.0-8.0) % Eos % (Auto) (0.0-4.0) % Baso % (Auto) (0.0-2.0) % Neut # (Auto) (1.8-7.7) th/mm3 Lymph # (Auto) (1.0-4.8) th/mm3 [place] # (Auto) (0.0-0.9) th/mm3 Eos # (Auto) (0.0-0.4) th/mm3 Baso # (Auto) (0.0-0.2) th/mm3 WBC Differential Differential Comment PT (9.8-11.6) sec INR Ratio APTT (24.3-30.1) sec Puncture Site Rn tho from iv site Patient Temperature 98.6 VBG pH 7.41 H (7.360-7.400) VBG pCO2 40 L (44-48) mmHG VBG pO2 44 H (35-40) mmHG VBG HCO3 24 (22-26) mmol/L VBG O2 Saturation 79 H (70-76) % VBG O2 Content 15.6 (9.0-17.0) Vol % VBG Base Excess 0.2 (-2-2) mmol/L VBG Carboxyhemoglobin 0.9 (0-4) % VBG Methemoglobin 0.8 (0-2) % Hemoglobin 14.1 (12.0-16.0) G/DL O2 Delivery Device Room air Inspired O2 21 % Critical Value No POC Sodium (137-144) mmol/L POC Potassium (3.6-5.0) mmol/L POC Chloride (102-111) mmol/L POC BUN (5-21) mg/dL POC Creatinine (0.6-1.3) mg/dL POC Glucose (68-110) mg/dl Total Bilirubin (0.2-1.0) mg/dL Direct Bilirubin (0.0-0.2) mg/dL Indirect Bilirubin (0.0-0.8) mg/dL AST (15-37) U/L ALT (12-78) U/L Alkaline Phosphatase (45-117) U/L Troponin I (0.02-0.05) ng/mL Total Protein (6.4-8.2) g/dL Albumin (3.4-5.0) g/dL Beta-Hydroxybutyric Acd (0.00-0.39) mmol/L TSH (0.358-3.740) uIU/mL Urine Color Yellow (Yellw/Straw) Urine Clarity Hazy H (Clear) Urine pH 5.0 (5.0-8.5) Ur Specific Honor 1.018 (1.002-1.035) Urine Protein 500 or greater (Neg-Trace) mg/dL Urine Glucose (UA) 500 or greater (Negative) mg/dL Urine Ketones Negative (Negative) mg/dL Urine Occult Blood Moderate H (Negative) Urine Nitrate Negative (Negative) Urine Bilirubin Negative (Negative) Urine Urobilinogen Less than 2 (Less than 2) mg/dL Ur Leukocyte Esterase Negative (Negative) Urine RBC 8 H (0-3) /hpf Urine WBC 1 (0-5) /hpf Amorphous Sediment Rare H (None) /hpf Urine Bacteria Rare H (None) /hpf Hyaline Casts 5 (0-3) /lpf Granular Casts 1 (None) /lpf Urine Mucus Few H (Occasional) /lpf Micro UA Comment Culture not ind Ur Microscopic Review Not Reportable Urine Culture Comments Culture not ind Salicylates (2.8-20.0) mg/dL Urine Opiates Screen Neg (Neg) Acetaminophen (10.0-30.0) mcg/mL Ur Barbiturates Screen Neg (Neg) Ur Amphetamines Screen Neg (Neg) U Benzodiazepines Scrn Neg (Neg) Urine Cocaine Screen Neg (Neg) U Cannabinoids Screen Neg (Neg) Serum Alcohol (0-5) mg/dL 07/06/18 Range/Units 03:17 WBC (4.0-11.0) th/mm3 RBC (4.50-5.90) mil/mm3 Hgb (13.0-17.0) gm/dL POC Hgb (Calc) (13.0-17.0) g/dL Hct (39.0-51.0) % POC Hct (39-51.0) % MCV (80.0-100.0) fL MCH (27.0-34.0) pg MCHC (32.0-36.0) % RDW (11.6-17.2) % Plt Count (150-450) th/mm3 MPV (7.0-11.0) fL Neut % (Auto) (16.0-70.0) % Lymph % (Auto) (9.0-44.0) % [place] % (Auto) (0.0-8.0) % Eos % (Auto) (0.0-4.0) % Baso % (Auto) (0.0-2.0) % Neut # (Auto) (1.8-7.7) th/mm3 Lymph # (Auto) (1.0-4.8) th/mm3 [place] # (Auto) (0.0-0.9) th/mm3 Eos # (Auto) (0.0-0.4) th/mm3 Baso # (Auto) (0.0-0.2) th/mm3 WBC Differential Differential Comment PT (9.8-11.6) sec INR Ratio APTT (24.3-30.1) sec Puncture Site Patient Temperature VBG pH (7.360-7.400) VBG pCO2 (44-48) mmHG VBG pO2 (35-40) mmHG VBG HCO3 (22-26) mmol/L VBG O2 Saturation (70-76) % VBG O2 Content (9.0-17.0) Vol % VBG Base Excess (-2-2) mmol/L VBG Carboxyhemoglobin (0-4) % VBG Methemoglobin (0-2) % Hemoglobin (12.0-16.0) G/DL O2 Delivery Device Inspired O2 % Critical Value POC Sodium (137-144) mmol/L POC Potassium (3.6-5.0) mmol/L POC Chloride (102-111) mmol/L POC BUN (5-21) mg/dL POC Creatinine (0.6-1.3) mg/dL POC Glucose 71 (68-110) mg/dl Total Bilirubin (0.2-1.0) mg/dL Direct Bilirubin (0.0-0.2) mg/dL Indirect Bilirubin (0.0-0.8) mg/dL AST (15-37) U/L ALT (12-78) U/L Alkaline Phosphatase (45-117) U/L Troponin I (0.02-0.05) ng/mL Total Protein (6.4-8.2) g/dL Albumin (3.4-5.0) g/dL Beta-Hydroxybutyric Acd (0.00-0.39) mmol/L TSH (0.358-3.740) uIU/mL Urine Color (Yellw/Straw) Urine Clarity (Clear) Urine pH (5.0-8.5) Ur Specific Honor (1.002-1.035) Urine Protein (Neg-Trace) mg/dL Urine Glucose (UA) (Negative) mg/dL Urine Ketones (Negative) mg/dL Urine Occult Blood (Negative) Urine Nitrate (Negative) Urine Bilirubin (Negative) Urine Urobilinogen (Less than 2) mg/dL Ur Leukocyte Esterase (Negative) Urine RBC (0-3) /hpf Urine WBC (0-5) /hpf Amorphous Sediment (None) /hpf Urine Bacteria (None) /hpf Hyaline Casts (0-3) /lpf Granular Casts (None) /lpf Urine Mucus (Occasional) /lpf Micro UA Comment Ur Microscopic Review Urine Culture Comments Salicylates (2.8-20.0) mg/dL Urine Opiates Screen (Neg) Acetaminophen (10.0-30.0) mcg/mL Ur Barbiturates Screen (Neg) Ur Amphetamines Screen (Neg) U Benzodiazepines Scrn (Neg) Urine Cocaine Screen (Neg) U Cannabinoids Screen (Neg) Serum Alcohol (0-5) mg/dL Imaging Data Radiologist's impression: Chest X-Ray 07/06/18 01:20 CONCLUSION: No acute disease Head CT 07/06/18 01:20 CONCLUSION: Negative CT Head non contrast. . ECG Data EKG Prior to Arrival: Yes Attestation: I personally reviewed and interpreted this ECG as follows: Prior ECG tracings: not available for review Discharge Plan Discharge Disposition Patient Disposition: 30 Still Patient Discharge Condition Condition: Stable Discharge Details Diagnosis: Altered mental status, Delirium, Hypertension Physicians Team ED Provider: Amy Young Primary Care Provider: Primary Care Nikia Fenton Attending Provider: Gabriel Last Status ED Status: Admitted Patient
--- NOTE | 2018-07-06 04:53 | P.HPCC ---
History of Present Illness Primary Care Physician: No Primary Care Physician History of Present Illness: 22-year-old gentleman with history of type 1 diabetes, HIV, neurosyphilis treated here 2 years ago was brought in by his classmates. The patient is altered, does not follow commands, keeps looking around, moves all 4 extremities. His diabetes is under control with negative ketones and normal pH , negative beta butyric acid and normal anion gap. Due to altered mental status he required 4 point restraints in the emergency department to be applied. He was also found to be hypertensive. His initial drug screen urine toxicology test was negative. No information is available from the patient since he is nonverbal and somewhat catatonic. Review of Systems unobtainable due to mental condition PMFSH - History History Provided By: Friend - Medical History Medical History: Medical History (Last Updated 07/06/18 @ 18:41 by Robyn Damon MD) HIV (human immunodeficiency virus infection) Neurosyphilis Type 1 diabetes - Surgical History Surgical History: Surgical History (Last Reviewed 07/06/18 @ 18:40 by Robyn Damon MD) No history of previous surgery - Family History Family History: Family History (Last Updated 07/06/18 @ 18:40 by Robyn Damon MD) Other No pertinent family history - Tobacco History Second Hand Smoke Exposure: No Smoking Status: Unknown if ever smoked - Alcohol History How Often Do You Have a Drink Containing Alcohol: Never - Travel History Recent Travel in the [place] Within the Last 8 Weeks: No Recent Travel Out of the Country Within the Last 8 Weeks: No - Immunization History Tetanus Immunization: <5 Years Hx Influenza Vaccine This Season: Yes Medications and Allergies Active Medications: Active Medications Acetaminophen (Tylenol) 650 mg PO Q6H PRN PRN Reason: PAIN 1-10 AND/OR FEVER >101F Al Hydroxide/Mg Hydroxide (Milk Of [place] Liq) 30 ml PO Q12H PRN PRN Reason: Mild Constipation Albuterol (Duoneb Neb (Prn)) 1 ampul NEB Q2HR NEB PRN PRN Reason: WHEEZING Bisacodyl (Dulcolax Supp) 10 mg RECTAL DAILY PRN PRN Reason: SEVERE CONSITIPATION Chlorhexidine Gluconate (Chlorhexidine 2% Cloth) 3 pack TOPICAL DAILY@0400 [facility] Stop: 07/12/18 03:59 Chlorhexidine Gluconate (Chlorhexidine 2% Cloth) 3 pack TOPICAL DAILY@0400 PRN PRN Reason: Extra cloth needed Stop: 07/12/18 03:59 Enoxaparin Sodium (Lovenox Inj) 40 mg SQ Q24H JUSTINO Famotidine (Pepcid Pf Inj) 20 mg IV.PUSH Q12HR JUSTINO Sodium Chloride (Ns Inj) 1,000 mls @ 185 mls/hr IV.CONT .Q5H25M [facility] Last Admin: 07/06/18 01:54 Dose: 125 mls/hr Potassium Chloride/Dextrose/Sod Cl (D5w/Ns + Kcl 40 Meq Inj) 1,000 mls @ 100 mls/hr IV.CONT .Q10H JUSTINO Last Admin: 07/06/18 04:14 Dose: 100 mls/hr Lactulose (Lactulose Liq) 30 ml PO DAILY PRN PRN Reason: SEVERE CONSITIPATION Lorazepam (Ativan Inj) 1 mg IV.PUSH Q1H PRN PRN Reason: SEIZURES Ondansetron HCl (Zofran Inj) 4 mg IV.PUSH Q6H PRN PRN Reason: NAUSEA OR VOMITING Senna/Docusate Sodium (Eva-Colace) 1 tab PO BID [facility] Sennosides (Senokot) 17.2 mg PO Q12H PRN PRN Reason: Moderate Constipation Sodium Chloride (Ns Flush) 2 ml IV.FLUSH PRN PRN PRN Reason: FLUSH AFTER USING IV ACCESS Sodium Chloride (Ns Flush) 2 ml IV.FLUSH BID [facility] Sodium Chloride (Ns Flush) 2 ml IV.FLUSH PRN PRN PRN Reason: FLUSH AFTER USING IV ACCESS Allergies Allergy/AdvReac Type Severity Reaction Status Date / Time piperacillin Allergy Severe Hives Unverified 12/22/17 23:04 tazobactam Allergy Severe Hives Unverified 12/22/17 23:04 ketorolac Allergy Unknown Hives Unverified 12/22/17 23:04 Home Medications Medication Instructions Recorded Confirmed Type insulin lispro protamin-lispro 1 sliding scale dose SUB-Q UD 07/06/18 07/06/18 History [Humalog Mix 50-50 Insuln U-100] Results - Labs CBC & Chem 7: 07/06/18 01:20 Labs: Short CBC 07/06/18 Range/Units 01:20 WBC 7.3 (4.0-11.0) th/mm3 Hgb 13.6 (13.0-17.0) gm/dL Hct 39.5 (39.0-51.0) % Plt Count 217 (150-450) th/mm3 Cardiac Enzymes 07/06/18 Range/Units 01:20 Troponin I Less than 0.02 L (0.02-0.05) ng/mL Urine 07/06/18 Range/Units 01:50 Urine Color Yellow (Yellw/Straw) Urine Clarity Hazy H (Clear) Urine pH 5.0 (5.0-8.5) Ur Specific [place] 1.018 (1.002-1.035) Urine Protein 500 or greater (Neg-Trace) mg/dL Urine Glucose (UA) 500 or greater (Negative) mg/dL - Imaging Impressions Chest X-Ray 07/06/18 01:20 CONCLUSION: No acute disease Head CT 07/06/18 01:20 CONCLUSION: Negative CT Head non contrast. . Exam Vital signs: Vital Signs 07/06/18 01:22 07/06/18 03:25 Temperature 97.8 F Pulse Rate 115 H 121 H Respiratory Rate 16 Blood Pressure 195/96 H 207/100 H Pulse Oximetry 100 99 - Constitutional moderate distress - Routine HEENT Exam Head: Present: atraumatic Eye: Present: PERRL, normal accommodation ENT: Present: mucous membranes moist - Routine Neck Exam Present: supple, full ROM. Absent: JVD, carotid bruit - Routine Respiratory Exam Absent: accessory muscle use, rhonchi, stridor, wheezes - Routine Cardiovascular Exam Present: RRR, S1, S2, tachycardia - Routine Abdominal Exam Present: soft, normoactive bowel sounds. Absent: tenderness, distended - Routine Extremities Exam Absent: cyanosis, clubbing, edema - Routine Skin Exam Present: intact. Absent: cyanosis, erythema - Routine Neurological Exam Present: altered mental status Septic Shock Reassessment Septic shock perfusion: reassessment completed Caprini VTE Risk Assessment Caprini VTE Risk Assessment: Moderate/High Risk (score >= 2) Caprini Risk Assessment Model: Point Value = 1 Point Value = 2 Point Value = 3 Point Value = 5 Age 41-60 Minor surgery BMI > 25 kg/m2 Swollen legs Varicose veins or History of unexplained or recurrent spontaneous Oral contraceptives or hormone replacement Sepsis (< 1 month) Serious lung disease, including pneumonia (< 1 month) Abnormal pulmonary function Acute myocardial infarction Congestive heart failure (< 1 month) History of inflammatory bowel disease Medical patient at bed rest Age 61-74 Arthroscopic surgery Major open surgery (> 45 min) Laparoscopic surgery (> 45 min) Malignancy Confined to bed (> 72 hours) Immobilizing plaster cast Central venous access Age >= 75 History of VTE Family history of VTE Factor V Leiden Prothrombin [id number] Lupus anticoagulant Anticardiolipin antibodies Elevated serum homocysteine Heparin-induced thrombocytopenia Other congenital or acquired thrombophilia Stroke (< 1 month) Elective arthroplasty Hip, pelvis, or leg fracture Acute spinal cord injury (< 1 month) Prophylaxis Regimen: Total Risk Factor Score Risk Level Prophylaxis Regimen 0-1 Low Early ambulation 2 Moderate Order ONE of the following: *Sequential Compression Device (SCD) *Heparin 5000 units SQ BID 3-4 Higher Order ONE of the following medications: *Heparin 5000 units SQ TID *Enoxaparin/Lovenox 40 mg SQ daily (WT < 150 kg, CrCl > 30 mL/min) *Enoxaparin/Lovenox 30 mg SQ daily (WT < 150 kg, CrCl > 10-29 mL/min) *Enoxaparin/Lovenox 30 mg SQ BID (WT < 150 kg, CrCl > 30 mL/min) AND/OR *Sequential Compression Device (SCD) 5 or more Highest Order ONE of the following medications: *Heparin 5000 units SQ TID (Preferred with Epidurals) *Enoxaparin/Lovenox 40 mg SQ daily (WT < 150 kg, CrCl > 30 mL/min) *Enoxaparin/Lovenox 30 mg SQ daily (WT < 150 kg, CrCl > 10-29 mL/min) *Enoxaparin/Lovenox 30 mg SQ BID (WT < 150 kg, CrCl > 30 mL/min) AND *Sequential Compression Device (SCD) Assessment and Plan - Assessment and Plan Plan: Altered mental status -Possible intoxication -CT head negative -EEG pending -Neuro checks per unit protocol -Supportive care -Seizure precaution Hypertension -Labetalol and Vasotec as needed to keep SBP less than 160 Diabetes mellitus -Insulin sliding scale History of HIV -Not currently on HAART -ID consult for an outpatient management DVT GI prophylaxis -Teds SCDs -Subcu Lovenox -Pepcid 35 minutes of critical care
[2018-07-06] MEDS ORDERED: Dextrose 50% in Water 50 ML Vial IV.PUSH PRN (04:55)
[2018-07-06] MEDS: Enoxaparin Inj 40 MG/0.4 ML Syringe SQ SCH (04:56)
[2018-07-06] MEDS ORDERED: Sodium Phosphate Inj 30 MMOL in Sodium Chlor 0.9% Inj 250 ML IV.SIG PRN (04:58)
[2018-07-06] MEDS ORDERED: Potassium Phosphate 500 MG Soluble Tablet PO PRN ×2 (04:58)
[2018-07-06] MEDS ORDERED: Potassium Chlor 20 mEq Premix 20 MEQ/100 ML PIGGYBACK IV.SIG PRN ×2 (04:58)
[2018-07-06] MEDS ORDERED: Potassium Phosphate Inj 30 MMOL in Sodium Chlor 0.9% Inj 250 ML IV.SIG PRN (04:58)
[2018-07-06] MEDS ORDERED: Potassium Chloride 25 MEQ Effervescent Tablet PO PRN (04:58)
[2018-07-06] MEDS ORDERED: Magnesium Sulfate Inj 2 GM in Sodium Chlor 0.9% Inj 96 ML IV.SIG PRN (04:58)
[2018-07-06] MEDS ORDERED: Potassium Chlor 40 mEq Premix 40 MEQ/100 ML PIGGYBACK IV.SIG PRN ×2 (04:58)
[2018-07-06] MEDS ORDERED: Magnesium Sulfate Inj 4 GM in Sodium Chlor 0.9% Inj 92 ML IV.SIG PRN (04:58)
[2018-07-06] MEDS ORDERED: Magnesium Oxide 400 MG Tablet PO PRN (04:58)
[2018-07-06] MEDS ORDERED: Sod Chloride 0.9% Inj 1,000 ML IV.SIG SCH (05:00)
[2018-07-06 05:07] LABS: Albumin 3.6 g/dL (3.4-5.0)
[2018-07-06] MEDS: Insulin NovoLOG Aspart Correctional Sugar Inj SQ SCH ×3 (06:22→20:50)
[2018-07-06] MEDS ORDERED: Vancomycin Consult Pharmacy OTHER PRN (07:32)
[2018-07-06] MEDS ORDERED: Vancomycin Inj 1,750 MG in Sodium Chlor 0.9% Inj 500 ML IV.SIG ONE (07:36)
[2018-07-06] MEDS: SODIUM CHLOR 0.9% IV.SIG SCH ×2 (09:12→18:14)
[2018-07-06] MEDS: ACYCLOVIR IV.SIG SCH ×2 (09:12→18:14)
[2018-07-06] MEDS: Famotidine PF Inj 20 MG/2 ML Vial IV.PUSH SCH ×2 (09:20→21:02)
[2018-07-06] MEDS: Senna/Docusate Sodium 8.6/50 MG Tablet PO SCH ×2 (09:21→21:03)
[2018-07-06 10:01] LABS: Hepatitits B Surface Antigen Nonreactive (Nonreactive)
[2018-07-06] MEDS: Labetalol HCl Inj 100 MG/20 ML Vial IV.PUSH PRN ×2 (10:12→20:55)
[2018-07-06 10:35] LABS: Hepatitis A IgM Antibody Nonreactive (Nonreactive)
[2018-07-06] MEDS ORDERED: hydrALAZINE HCl Inj 20 MG/ML Vial IV.PUSH PRN (10:40)
--- NOTE | 2018-07-06 11:20 | MB ---
cc: Oliver Mcmanus MD DATE: 07/06/2018 HISTORY OF PRESENT ILLNESS: He is a 22-year-old male with HIV. He had been on HAART, Genvoya; VL undetected, type 1 diabetes, in December, with some pyuria. CT abdomen was negative. He had not been taking his medications for the HIV at that time. He had a family history that is positive for CAD, Buerger disease, type 1 diabetes and hypertension. He was started on antibiotics. He was recently in the ER on 12/2017, unable to stop a bleeding toenail. He did better in 12/2016 and was subsequently discharged after some antibiotics because he was septic from a UTI. He is now admitted with onset of confusion. It is unclear if it was sudden or not. He was normal, about 9:30 the night before and then the next day was found sitting in a chair slumped forward. He had a fixed stare and was not talking. He was hypertensive and tachycardic; sugar was in the low 70s. subsequently admitted to the hospital. CAT scan was negative. REVIEW OF SYSTEMS: Unable to obtain from the patient. HOME MEDICATIONS: He takes insulin. It is unclear what other medication he has taken at home. CURRENT MEDICATIONS: He is on: 1. Acyclovir. 2. Ampicillin 3. Ceftriaxone. 4. Famotidine. 5. Lovenox 40, which is every 12 hours, which is on hold. 6. Glucagon. 7. Ativan p.r.n. 8. Vancomycin. SOCIAL AND FAMILY HISTORY: Otherwise unable to obtain besides what is above. PHYSICAL EXAMINATION: VITAL SIGNS: T-max 101.1, initially febrile, 188/111 to 207/100. NECK: There were no carotid bruits on exam. There were no carotid bruits. HEART: Regular rate and rhythm. I did not detect a murmur. NEUROLOGIC: He reacts to threat bilaterally. Pupils are equal. There is no nystagmus. He stuck his tongue out for me; would not count fingers. Moved all 4 extremities well. Toes downgoing bilaterally. DTRs are trace. He is awake and looks at me. He whispers some things, but I cannot really make out most of what he says; not making much sense. LABORATORY DATA: CBC is normal. White count 7.3. UA essentially unremarkable. BMP: Potassium 3.3. Sodium is normal. Creatinine is normal. LFTs minimally elevated. Troponins negative. TSH is normal. Blood gas 7.4140 with a PaO2 of 44 though evidently from an IV site. Coags are normal. RPR is pending. Urine drug screen was negative. IMAGING: He had a CT scan of the brain that was normal. IMPRESSION: Unclear if it psychiatric; could be human immunodeficiency virus, encephalopathy or other encephalitis. It could be a herpes encephalitis, it could be psychiatric and it could be a hypertensive encephalopathy or subclinical status. We will check an EEG, MRI of the brain. He will need an LP. Apparently there was some question if he could have neurosyphilis. We will see how his RPR looks and will be following it while in the hospital. I note his RPR was positive in 2016; it is unclear if he was treated for that. His LUIS and rheumatoid factor were negative at that time. His CD4 count was 281, which was low back in 2016. An LP at that time showed 5 white cells, 28 red cells, a glucose of 188, protein of 60. Apparently, the med team here is going to do an LP and I would agree with doing that. They could consider an Infectious Disease consult with a history of human immunodeficiency virus. MD SENDY Marion/yaquelin/joseph , 09:54 AM , 10:04 AM
[2018-07-06] MEDS ORDERED: Vancomycin Inj 2,250 MG in Sodium Chlor 0.9% Inj 500 ML IV.SIG SCH (12:00)
[2018-07-06 13:00] LABS: Amphetamine Urine With Conf Neg (Neg); Benzodiazepine Urine With Conf Neg (Neg)
--- NOTE | 2018-07-06 13:41 | XR ---
EXAM DATE: 07/06/2018 1:36 PM EDT AGE/SEX: 22 years / Male INDICATIONS: Mri Clear ence CLINICAL DATA: This is the patient's initial encounter. Patient reports that signs and symptoms have been present for 2 days and indicates a pain score of 0/10. MEDICAL/SURGICAL HISTORY: . Diabetes mellitus type I. . Hydrocele COMPARISON: No prior exams available for comparison. FINDINGS: The abdominal bowel gas pattern is normal. No abnormal masses, calcifications, or organomegaly is s een. The osseous structures are unremarkable. CONCLUSION: No evidence of obstruction. No foreign body is identified. Electronically signed by: Oliver Mccann MD 07/06/2018 1:40 PM EDT
[2018-07-06] MEDS ORDERED: Gadobutrol PF 10 MMOL/10 ML Vial (for RAD) IV.SIG ONE (15:20)
--- NOTE | 2018-07-06 15:22 | MR ---
EXAM DATE: 07/06/2018 2:49 PM EDT AGE/SEX: 22 years / Male INDICATIONS: Altered mental status. CLINICAL DATA: This is the patient's initial encounter. Patient reports that signs and symptoms have been present for 2 days and indicates a pain score of Nonresponsive. MEDICAL/SURGICAL HISTORY: Diabetes mellitus type II. Hypertension. . Hip aspiration. COMPARISON: No prior exams available for comparison. TECHNIQUE: Multiplanar, multisequence examination of the brain was performed without and with 10 ml G adavist (gadobutrol) contrast as a single exam dose. FINDINGS: MRI of the brain is performed in sagittal, axial and coronal planes. The craniocervical junction and midline structures are unremarkable. Diffusion weighted images demonstrate no abnormality. No acute c ortical infarction, acute hemorrhage, mass effect or midline shift is seen.Following the administrati on of contrast no abnormal enhancement is identified. Posterior fossa structures are unremarkable. CONCLUSION: No evidence of acute intracranial pathology. No masses are identified. Electronically signed by: Oliver Mccann MD 07/06/2018 3:21 PM EDT
[2018-07-06] MEDS: Vancomycin Inj 1,500 MG in Sodium Chlor 0.9% Inj 500 ML IV.SIG SCH (16:22)
[2018-07-06] MEDS ORDERED: Ketamine Inj 500 MG/10 ML Vial ONE (16:57)
[2018-07-06] MEDS ORDERED: Propofol Inj 500 MG/50 ML Vial ONE (17:09)
--- NOTE | 2018-07-06 18:33 | P.PCN ---
Date of procedure: 07/06/18 Pre-op diagnosis: Acute encephalopathy Post-op diagnosis: same Procedure: Lumbar Puncture Diagnosis: Acute encephalopathy Indications: Acute encephalopathy with a history of HIV Consent: Emergent Anesthesia: Propofol, ketamine IV Description of the Procedure: The patient was placed in the supine, right lateral decubitus position. The patient was prepped and draped sterilely. 1% lidocaine was infiltrated subcutaneously. A 20g Quincke needle was inserted into the L3-4 interspace and advanced until CSF was obtained. Opening pressure was obtained. CSF was drained in 4 incremental vials. The needle was removed and a dressing was applied. The patient was returned to the supine position. There were no immediate complications noted. There was minimal EBL. The patient tolerated the procedure well. Opening Pressure: 12 mmHg Amount of CSF removed: 10 mL's Findings: Clear CSF I personally performed the procedure.
--- NOTE | 2018-07-06 18:39 | P.PNADD ---
Addendum to Inpatient Note Reason for Addendum: Additional Documentation Additional information: I saw and evaluated this patient throughout the day today after Dr. Delaney admitted the patient. In brief this is a 22-year-old male who presented with acute encephalopathy initially thought to be toxic secondary to drug overdose. However, on deeper investigation of his past medical history and his prior records here from 2015, this is a patient with a history of HIV and admitted in 2016 for neurosyphilis. Also this morning, he spiked a fever to 101.1 Fahrenheit. In the setting of fever, HIV, and acute encephalopathy with a completely negative tox screen, encephalitis and other infectious etiologies becomes much higher on the differential. The patient remains significantly encephalopathic and although he is protecting his airway, he is too somnolent to take p.o. meds. Decision was made to proceed with MRI, EEG, LP. I consult infectious disease to assist with the workup. On my exam, the patient remains encephalopathic. He is tachycardic and hypertensive in the 180s systolic. He is protecting his airway with a vigorous gag and cough, but this too is somnolent to swallow pills or participate in any discussion. He moves all extremities purposefully, but does not follow commands. Active problems: Fever HIV Previous history of neurosyphilis Acute encephalopathy Concern for acute encephalitis Immune compromised state Plan: EEG MRI LP Specifically sending studies for cell count, Gram stain, cytology, bacterial fungal cultures, cryptococcus, toxoplasmosis, CMV, EBV, HSV, VDRL, JAX. Infectious disease consult Frequent neurochecks Avoid sedatives Send off more detailed drug screen Empiric coverage with vancomycin, ampicillin, Rocephin, acyclovir This patient remains critically ill with one or more organ systems which are or may become a threat to life. This addendum represents an additional 58 minutes in excess of any time previously documented in the care and management of this patient. This time is discontinuous, exclusive of procedures, and includes, but is not limited to, evaluation of the patient, review of the medical record, discussions with family, consultants, nursing staff, or respiratory therapy, and documentation in the medical record.
--- NOTE | 2018-07-06 18:51 | P.CONID ---
History of Present Illness Service: ID Consult date: 07/06/18 Requesting Physician: Marc Shukla Reason for Consult: HIV patient with history of neurosyphilis presents with altered mentation Primary Care Provider: No Primary Care Physician History of Present Illness: Pt with severe confuson, unable to provide any history Chart qwsa reviewed to obtaine history 22 yo male sp treatemnt for Neurosyphilis 2 yrs ago He also was diagnosed with HIV, but apparently has no HAART Pt presents to the emergency department by EMS transport from his school dorm where he was found around 1030 by classmates with altered mentation. Patient is a type I diabetic and takes insulin. Patient reportedly uses no substances and had normal behavior at 930, had no known injury or fall. Paramedics were called and noted the patient to be somewhat catatonic in his behavior. In the filed pt was noted to be hypertensive and tachycardic, afebrile and blood sugar was in the low 70s. Sp oral glucose with minimal response. He is febrile up to 101 and BP is stable CT/MRI brain were nergative CXR and RUb also w/o acute findings He was started on Acyclovir , Ampicillin , Ceftriaxone and Vancomycin Pt is very disoriented, though awkae and follwos simple commands. LP was just done and results are pending Review of Systems unobtainable due to mental status PMFSH - History History Provided By: Medical Record - Medical History Medical History: Medical History (Last Updated 07/06/18 @ 18:41 by Robyn Damon MD) HIV (human immunodeficiency virus infection) Neurosyphilis Type 1 diabetes - Surgical History Surgical History: Surgical History (Last Reviewed 07/06/18 @ 18:40 by Robyn Damon MD) No history of previous surgery - Family History Family History: Family History (Last Updated 07/06/18 @ 18:40 by Robyn Damon MD) Other No pertinent family history - Social History I have reviewed the patient's Social History: Yes - Tobacco History Second Hand Smoke Exposure: No Smoking Status: Never smoker - Alcohol History How Often Do You Have a Drink Containing Alcohol: Unable to Obtain - Travel History Recent Travel in the [place] Within the Last 8 Weeks: No Recent Travel Out of the Country Within the Last 8 Weeks: No - Immunization History Tetanus Immunization: <5 Years Hx Influenza Vaccine This Season: Yes Medications and Allergies Active Medications: Active Medications Acetaminophen (Tylenol) 650 mg PO Q6H PRN PRN Reason: PAIN 1-10 AND/OR FEVER >101F Al Hydroxide/Mg Hydroxide (Milk Of Eulogio Gutiérrez) 30 ml PO Q12H PRN PRN Reason: Mild Constipation Albuterol (Duoneb Neb (Prn)) 1 ampul NEB Q2HR NEB PRN PRN Reason: WHEEZING Bisacodyl (Dulcolax Supp) 10 mg RECTAL DAILY PRN PRN Reason: SEVERE CONSITIPATION Chlorhexidine Gluconate (Chlorhexidine 2% Cloth) 3 pack TOPICAL DAILY@0400 [facility] Stop: 07/12/18 03:59 Chlorhexidine Gluconate (Chlorhexidine 2% Cloth) 3 pack TOPICAL DAILY@0400 PRN PRN Reason: Extra cloth needed Stop: 07/12/18 03:59 Dextrose (D50w Vial) 50 ml IV.PUSH UNSCH PRN PRN Reason: PER HYPOGLYCEMIA PROTOCOL Enoxaparin Sodium (Lovenox Inj) 40 mg SQ Q24H [facility] Last Admin: 07/06/18 04:56 Dose: 40 mg Famotidine (Pepcid Pf Inj) 20 mg IV.PUSH Q12HR [facility] Last Admin: 07/06/18 09:20 Dose: 20 mg Glucagon (Glucagon Inj) 1 mg OTHER PRN PRN PRN Reason: for Hypoglycemia Protocol Sodium Chloride (Ns Inj) 1,000 mls @ 185 mls/hr IV.CONT .Q5H25M [facility] Last Admin: 07/06/18 15:40 Dose: Not Given Potassium Chloride/Dextrose/Sod Cl (D5w/Ns + Kcl 40 Meq Inj) 1,000 mls @ 100 mls/hr IV.CONT .Q10H [facility] Last Admin: 07/06/18 15:40 Dose: 100 mls/hr Sodium Chloride (Ns Inj) 1,000 mls @ 0 mls/hr IV.SIG BOLUS [facility] Stop: 07/07/18 05:01 Magnesium Sulfate Inj 4 gm/ (Sodium Chloride) 100 mls @ 50 mls/hr IV.SIG UNSCH PRN PRN Reason: For Magnesium 0.9 - 1.1 mg/dL Magnesium Sulfate Inj 2 gm/ (Sodium Chloride) 100 mls @ 50 mls/hr IV.SIG UNSCH PRN PRN Reason: For Magnesium 1.2 - 1.6 mg/dL Potassium Chloride (Kcl 40 Meq Premix Inj) 40 meq in 100 mls @ 25 mls/hr IV.SIG Q2H PRN PRN Reason: For Potassium 2.8 - 3.2 mEq/L Potassium Chloride (Kcl 20 Meq Premix Inj) 20 meq in 100 mls @ 50 mls/hr IV.SIG Q2H PRN PRN Reason: For Potassium 3.3 - 3.5 mEq/L Potassium Chloride (Kcl 20 Meq Premix Inj) 20 meq in 100 mls @ 50 mls/hr IV.SIG Q2H PRN PRN Reason: For Potassium 2.8 - 3.2 mEq/L Potassium Phosphate 30 mmol/ (Sodium Chloride) 260 mls @ 42 mls/hr IV.SIG UNSCH PRN PRN Reason: SEE LABEL COMMENTS Sodium Phosphate 30 mmol/ (Sodium Chloride) 260 mls @ 42 mls/hr IV.SIG UNSCH PRN PRN Reason: For Phosphorus < 2.5 mg/dL Potassium Chloride (Kcl 40 Meq Premix Inj) 40 meq in 100 mls @ 25 mls/hr IV.SIG UNSCH PRN PRN Reason: For Potassium 3.3 - 3.5 mEq/L Acyclovir Sodium 1,020 mg/ (Sodium Chloride) 170.4 mls @ 170.4 mls/hr IV.SIG Q8H [facility] Last Admin: 07/06/18 18:14 Dose: 170.4 mls/hr Ampicillin Sodium 2,000 mg/ (Sodium Chloride) 100 mls @ 400 mls/hr IV.SIG Q4H [facility] Last Infusion: 07/06/18 18:15 Dose: Infused Ceftriaxone Sodium 2,000 mg/ (Sodium Chloride) 100 mls @ 200 mls/hr IV.SIG Q12H [facility] Last Infusion: 07/06/18 10:39 Dose: Infused Acetaminophen (Ofirmev Inj) 1,000 mg in 100 mls @ 400 mls/hr IV.SIG Q6H PRN PRN Reason: fever Vancomycin HCl 1,500 mg/ (Sodium Chloride) 515 mls @ 250 mls/hr IV.SIG Q12H [facility] Last Infusion: 07/06/18 18:15 Dose: Infused Insulin Aspart (Novolog Insulin Correctional Sugar Inj) 0 unit SQ Q6HR [facility]; Protocol Last Admin: 07/06/18 12:32 Dose: Not Given Ketamine HCl (Ketalar Inj) 100 mg IV.PUSH ONCE ONE Stop: 07/06/18 19:01 Labetalol HCl (Trandate Inj) 10 mg IV.PUSH Q20M PRN PRN Reason: sbp > 180 Last Admin: 07/06/18 10:12 Dose: 10 mg Lactulose (Lactulose Liq) 30 ml PO DAILY PRN PRN Reason: SEVERE CONSITIPATION Lorazepam (Ativan Inj) 1 mg IV.PUSH Q1H PRN PRN Reason: SEIZURES Last Admin: 07/06/18 15:43 Dose: 1 mg Magnesium Oxide (Mag-Ox) 800 mg PO UNSCH PRN PRN Reason: For Magnesium 1.2 - 1.6 mg/dL Miscellaneous Information ([facility] [place]dered [facility] Info) 0 each OTHER ONCE ONE Stop: 07/08/18 04:46 Ondansetron HCl (Zofran Inj) 4 mg IV.PUSH Q6H PRN PRN Reason: NAUSEA OR VOMITING Pharmacy Profile Note (Vancomycin Consult Pharmacy) 1 each OTHER UNSCH PRN PRN Reason: Pharmacy to dose Potassium Bicarb/Potassium Chloride (K-Lyte Cl Eff) 50 meq PO UNSCH PRN PRN Reason: For Potassium 3.3 - 3.5 mEq/L Potassium Phosphate (K-Phos Original) 2,000 mg PO Q4H PRN PRN Reason: Phosphorus Less Than 2.5 mg/dL Potassium Phosphate (K-Phos Original) 2,000 mg PO UNSCH PRN PRN Reason: SEE LABEL COMMENTS Senna/Docusate Sodium (Eva-Colace) 1 tab PO BID [facility] Last Admin: 07/06/18 09:21 Dose: Not Given Sennosides (Senokot) 17.2 mg PO Q12H PRN PRN Reason: Moderate Constipation Sodium Chloride (Ns Flush) 2 ml IV.FLUSH BID [facility] Last Admin: 07/06/18 09:13 Dose: 2 ml Sodium Chloride (Ns Flush) 2 ml IV.FLUSH PRN PRN PRN Reason: FLUSH AFTER USING IV ACCESS Allergies Allergy/AdvReac Type Severity Reaction Status Date / Time piperacillin Allergy Severe Hives Unverified 12/22/17 23:04 tazobactam Allergy Severe Hives Unverified 12/22/17 23:04 ketorolac Allergy Unknown Hives Unverified 12/22/17 23:04 Home Medications Medication Instructions Recorded Confirmed Type insulin lispro protamin-lispro 1 sliding scale dose SUB-Q UD 07/06/18 07/06/18 History [Humalog Mix 50-50 Insuln U-100] Exam Vital signs: Vital Signs 07/06/18 01:22 07/06/18 03:25 07/06/18 05:05 Temperature 97.8 F Pulse Rate 115 H 121 H 101 H Respiratory Rate 16 16 Blood Pressure 195/96 H 207/100 H 187/79 H Pulse Oximetry 100 99 100 07/06/18 06:00 07/06/18 07:27 07/06/18 08:00 Temperature 101.1 F H 101 F H Pulse Rate 99 H Respiratory Rate 29 H Blood Pressure 188/111 H 167/108 H Pulse Oximetry 100 100 100 07/06/18 09:00 07/06/18 10:00 07/06/18 11:00 Temperature Pulse Rate 104 H 112 H 112 H Respiratory Rate 22 24 25 H Blood Pressure 194/102 H 178/118 H 193/79 H Pulse Oximetry 99 99 99 07/06/18 12:00 07/06/18 14:00 07/06/18 16:00 Temperature 99.5 F 99.9 F H Pulse Rate 92 H 89 100 H Respiratory Rate 20 21 Blood Pressure 148/73 H 133/61 Pulse Oximetry 97 100 07/06/18 18:00 Temperature Pulse Rate 97 H Respiratory Rate Blood Pressure Pulse Oximetry Intake & Output 07/05/18 07/06/18 07/06/18 18:59 06:59 18:59 Intake Total 3085.4 / 3085.4 Output Total 2400 / 2400 Balance 685.4 / 685.4 Weight 102 kg Intake: IV 3085.4 / 3085.4 D5W/NS + KCL 40 mEq Inj 1,000 1000 / 1000 ML @ 100 mls/hr IV.CONT .Q10H [facility] Rx#:[id number] NS Inj 1,000 ML @ 185 mls/hr IV 1000 / 1000 .CONT .Q5H25M [facility] Rx#:[id number] Zovirax Inj 1,020 MG In NS Inj 170.4 / 170.4 150 ML @ 170.4 mls/hr IV.SIG Q8H [facility] Rx#:[id number] Ampicillin Inj 2,000 MG In NS 300 / 300 Inj 100 ML @ 400 mls/hr IV.SIG Q4H [facility] Rx#:[id number] Vancomycin Inj 1,500 MG In NS 515 / 515 Inj 500 ML @ 250 mls/hr IV.SIG Q12H [facility] Rx#:[id number] Rocephin Inj 2,000 MG In NS Inj 100 / 100 100 ML @ 200 mls/hr IV.SIG Q12H [facility] Rx#:[id number] Oral 0 / 0 Output: Urine 2400 / 2400 Other: Weight On Admission 102 kg - Constitutional no acute distress, obese - Routine HEENT Exam Head: Present: normocephalic, atraumatic Eye: Present: EOMI, PERRL ENT: Present: mucous membranes moist, oropharynx clear - Routine Neck Exam Present: supple, full ROM. Absent: JVD, thyromegaly - Routine Chest/Breast/Axilla Exam Chest wall: Absent: tenderness Axillae: Absent: lymphadenopathy - Routine Respiratory Exam Present: CTA bilaterally. Absent: accessory muscle use, rales, respiratory distress, rhonchi - Routine Cardiovascular Exam Present: RRR, S1, S2. Absent: murmur, gallop, rubs - Routine Abdominal Exam Present: soft, normoactive bowel sounds. Absent: tenderness, distended, organomegaly, mass - Routine Extremities Exam Present: full ROM, normal capillary refill. Absent: cyanosis, clubbing, edema - Routine Skin Exam Present: intact, dry, warm. Absent: cyanosis, erythema, rash - Routine Neurological Exam Present: alert, altered mental status (not oriented), moving all extremities, normal tone, vision grossly intact, hearing grossly intact. Absent: oriented X3 , facial asymmetry, normal speech (speech is very incoherent) - Routine Psychiatric Exam Present: unable to assess Results - Labs CBC & Chem 7: 07/06/18 01:20 Labs: Laboratory Results - last 24 hr 07/06/18 07/06/18 07/06/18 01:09 01:20 01:20 WBC 7.3 RBC 4.32 L Hgb 13.6 POC Hgb (Calc) Hct 39.5 POC Hct MCV 91.5 MCH 31.6 MCHC 34.5 RDW 13.3 Plt Count 217 MPV 8.0 Neut % (Auto) 64.4 Lymph % (Auto) 28.0 Isabella % (Auto) 6.1 Eos % (Auto) 0.1 Baso % (Auto) 1.4 Neut # (Auto) 4.7 Lymph # (Auto) 2.1 Isabella # (Auto) 0.4 Eos # (Auto) 0.0 Baso # (Auto) 0.1 WBC Differential . Differential Comment Auto diff final PT 10.3 INR 1.0 APTT 20.3 L Puncture Site Patient Temperature VBG pH VBG pCO2 VBG pO2 VBG HCO3 VBG O2 Saturation VBG O2 Content VBG Base Excess VBG Carboxyhemoglobin VBG Methemoglobin Hemoglobin O2 Delivery Device Inspired O2 Critical Value POC Sodium POC Potassium POC Chloride POC BUN POC Creatinine POC Glucose 113 H Total Bilirubin Direct Bilirubin Indirect Bilirubin AST ALT Alkaline Phosphatase Troponin I Total Protein Albumin Beta-Hydroxybutyric Acd TSH Urine Color Urine Clarity Urine pH Ur Specific [place] Urine Protein Urine Glucose (UA) Urine Ketones Urine Occult Blood Urine Nitrate Urine Bilirubin Urine Urobilinogen Ur Leukocyte Esterase Urine RBC Urine WBC Amorphous Sediment Urine Bacteria Hyaline Casts Granular Casts Urine Mucus Micro UA Comment Ur Microscopic Review Urine Culture Comments Nasal Screen MRSA (PCR) Salicylates Urine Opiates Screen Acetaminophen Ur Barbiturates Screen Ur Amphetamine Screen Ur Amphetamines Screen U Benzodiazepines Scrn Urine Cocaine Screen U Cannabinoids Screen Serum Alcohol Hepatitis A IgM Ab Hep Bs Antigen Hep B Core IgM Ab Hep C IgG Ab 07/06/18 07/06/18 07/06/18 01:20 01:20 01:20 WBC RBC Hgb POC Hgb (Calc) 12.9 L Hct POC Hct 38.0 L MCV MCH MCHC RDW Plt Count MPV Neut % (Auto) Lymph % (Auto) Isabella % (Auto) Eos % (Auto) Baso % (Auto) Neut # (Auto) Lymph # (Auto) Isabella # (Auto) Eos # (Auto) Baso # (Auto) WBC Differential Differential Comment PT INR APTT Puncture Site Patient Temperature VBG pH VBG pCO2 VBG pO2 VBG HCO3 VBG O2 Saturation VBG O2 Content VBG Base Excess VBG Carboxyhemoglobin VBG Methemoglobin Hemoglobin O2 Delivery Device Inspired O2 Critical Value POC Sodium 138 POC Potassium 3.3 L POC Chloride 102 POC BUN 16 POC Creatinine 1.3 POC Glucose 123 H Total Bilirubin 0.2 Direct Bilirubin 0.1 Indirect Bilirubin 0.1 AST 49 H ALT 55 Alkaline Phosphatase 87 Troponin I Less than 0.02 L Total Protein 8.0 Albumin 3.6 Beta-Hydroxybutyric Acd 0.06 TSH 2.170 Urine Color Urine Clarity Urine pH Ur Specific [place] Urine Protein Urine Glucose (UA) Urine Ketones Urine Occult Blood Urine Nitrate Urine Bilirubin Urine Urobilinogen Ur Leukocyte Esterase Urine RBC Urine WBC Amorphous Sediment Urine Bacteria Hyaline Casts Granular Casts Urine Mucus Micro UA Comment Ur Microscopic Review Urine Culture Comments Nasal Screen MRSA (PCR) Salicylates 1.9 L Urine Opiates Screen Acetaminophen Less than 2.0 L Ur Barbiturates Screen Ur Amphetamine Screen Ur Amphetamines Screen U Benzodiazepines Scrn Urine Cocaine Screen U Cannabinoids Screen Serum Alcohol Less than 3 Hepatitis A IgM Ab Hep Bs Antigen Hep B Core IgM Ab Hep C IgG Ab 07/06/18 07/06/18 07/06/18 01:35 01:50 01:50 WBC RBC Hgb POC Hgb (Calc) Hct POC Hct MCV MCH MCHC RDW Plt Count MPV Neut % (Auto) Lymph % (Auto) Isabella % (Auto) Eos % (Auto) Baso % (Auto) Neut # (Auto) Lymph # (Auto) Isabella # (Auto) Eos # (Auto) Baso # (Auto) WBC Differential Differential Comment PT INR APTT Puncture Site Rn tho from iv site Patient Temperature 98.6 VBG pH 7.41 H VBG pCO2 40 L VBG pO2 44 H VBG HCO3 24 VBG O2 Saturation 79 H VBG O2 Content 15.6 VBG Base Excess 0.2 VBG Carboxyhemoglobin 0.9 VBG Methemoglobin 0.8 Hemoglobin 14.1 O2 Delivery Device Room air Inspired O2 21 Critical Value No POC Sodium POC Potassium POC Chloride POC BUN POC Creatinine POC Glucose Total Bilirubin Direct Bilirubin Indirect Bilirubin AST ALT Alkaline Phosphatase Troponin I Total Protein Albumin Beta-Hydroxybutyric Acd TSH Urine Color Yellow Urine Clarity Hazy H Urine pH 5.0 Ur Specific [place] 1.018 Urine Protein 500 or greater Urine Glucose (UA) 500 or greater Urine Ketones Negative Urine Occult Blood Moderate H Urine Nitrate Negative Urine Bilirubin Negative Urine Urobilinogen Less than 2 Ur Leukocyte Esterase Negative Urine RBC 8 H Urine WBC 1 Amorphous Sediment Rare H Urine Bacteria Rare H Hyaline Casts 5 Granular Casts 1 Urine Mucus Few H Micro UA Comment Culture not ind Ur Microscopic Review Not Reportable Urine Culture Comments Culture not ind Nasal Screen MRSA (PCR) Salicylates Urine Opiates Screen Neg Acetaminophen Ur Barbiturates Screen Neg Ur Amphetamine Screen Ur Amphetamines Screen Neg U Benzodiazepines Scrn Neg Urine Cocaine Screen Neg U Cannabinoids Screen Neg Serum Alcohol Hepatitis A IgM Ab Hep Bs Antigen Hep B Core IgM Ab Hep C IgG Ab 07/06/18 07/06/18 07/06/18 01:50 03:17 06:15 WBC RBC Hgb POC Hgb (Calc) Hct POC Hct MCV MCH MCHC RDW Plt Count MPV Neut % (Auto) Lymph % (Auto) Isabella % (Auto) Eos % (Auto) Baso % (Auto) Neut # (Auto) Lymph # (Auto) Isabella # (Auto) Eos # (Auto) Baso # (Auto) WBC Differential Differential Comment PT INR APTT Puncture Site Patient Temperature VBG pH VBG pCO2 VBG pO2 VBG HCO3 VBG O2 Saturation VBG O2 Content VBG Base Excess VBG Carboxyhemoglobin VBG Methemoglobin Hemoglobin O2 Delivery Device Inspired O2 Critical Value POC Sodium POC Potassium POC Chloride POC BUN POC Creatinine POC Glucose 71 90 Total Bilirubin Direct Bilirubin Indirect Bilirubin AST ALT Alkaline Phosphatase Troponin I Total Protein Albumin Beta-Hydroxybutyric Acd TSH Urine Color Urine Clarity Urine pH Ur Specific [place] Urine Protein Urine Glucose (UA) Urine Ketones Urine Occult Blood Urine Nitrate Urine Bilirubin Urine Urobilinogen Ur Leukocyte Esterase Urine RBC Urine WBC Amorphous Sediment Urine Bacteria Hyaline Casts Granular Casts Urine Mucus Micro UA Comment Ur Microscopic Review Urine Culture Comments Nasal Screen MRSA (PCR) Salicylates Urine Opiates Screen Neg Acetaminophen Ur Barbiturates Screen Neg Ur Amphetamine Screen Neg Ur Amphetamines Screen U Benzodiazepines Scrn Neg Urine Cocaine Screen Neg U Cannabinoids Screen Neg Serum Alcohol Hepatitis A IgM Ab Hep Bs Antigen Hep B Core IgM Ab Hep C IgG Ab 07/06/18 07/06/18 07/06/18 08:44 12:14 12:55 WBC RBC Hgb POC Hgb (Calc) Hct POC Hct MCV MCH MCHC RDW Plt Count MPV Neut % (Auto) Lymph % (Auto) Isabella % (Auto) Eos % (Auto) Baso % (Auto) Neut # (Auto) Lymph # (Auto) Isabella # (Auto) Eos # (Auto) Baso # (Auto) WBC Differential Differential Comment PT INR APTT Puncture Site Patient Temperature VBG pH VBG pCO2 VBG pO2 VBG HCO3 VBG O2 Saturation VBG O2 Content VBG Base Excess VBG Carboxyhemoglobin VBG Methemoglobin Hemoglobin O2 Delivery Device Inspired O2 Critical Value POC Sodium POC Potassium POC Chloride POC BUN POC Creatinine POC Glucose 91 Total Bilirubin Direct Bilirubin Indirect Bilirubin AST ALT Alkaline Phosphatase Troponin I Total Protein Albumin Beta-Hydroxybutyric Acd TSH Urine Color Urine Clarity Urine pH Ur Specific [place] Urine Protein Urine Glucose (UA) Urine Ketones Urine Occult Blood Urine Nitrate Urine Bilirubin Urine Urobilinogen Ur Leukocyte Esterase Urine RBC Urine WBC Amorphous Sediment Urine Bacteria Hyaline Casts Granular Casts Urine Mucus Micro UA Comment Ur Microscopic Review Urine Culture Comments Nasal Screen MRSA (PCR) Not detected Salicylates Urine Opiates Screen Acetaminophen Ur Barbiturates Screen Ur Amphetamine Screen Ur Amphetamines Screen U Benzodiazepines Scrn Urine Cocaine Screen U Cannabinoids Screen Serum Alcohol Hepatitis A IgM Ab Nonreactive Hep Bs Antigen Nonreactive Hep B Core IgM Ab Nonreactive Hep C IgG Ab Nonreactive 07/06/18 18:18 WBC RBC Hgb POC Hgb (Calc) Hct POC Hct MCV MCH MCHC RDW Plt Count MPV Neut % (Auto) Lymph % (Auto) Isabella % (Auto) Eos % (Auto) Baso % (Auto) Neut # (Auto) Lymph # (Auto) Isabella # (Auto) Eos # (Auto) Baso # (Auto) WBC Differential Differential Comment PT INR APTT Puncture Site Patient Temperature VBG pH VBG pCO2 VBG pO2 VBG HCO3 VBG O2 Saturation VBG O2 Content VBG Base Excess VBG Carboxyhemoglobin VBG Methemoglobin Hemoglobin O2 Delivery Device Inspired O2 Critical Value POC Sodium POC Potassium POC Chloride POC BUN POC Creatinine POC Glucose 108 Total Bilirubin Direct Bilirubin Indirect Bilirubin AST ALT Alkaline Phosphatase Troponin I Total Protein Albumin Beta-Hydroxybutyric Acd TSH Urine Color Urine Clarity Urine pH Ur Specific [place] Urine Protein Urine Glucose (UA) Urine Ketones Urine Occult Blood Urine Nitrate Urine Bilirubin Urine Urobilinogen Ur Leukocyte Esterase Urine RBC Urine WBC Amorphous Sediment Urine Bacteria Hyaline Casts Granular Casts Urine Mucus Micro UA Comment Ur Microscopic Review Urine Culture Comments Nasal Screen MRSA (PCR) Salicylates Urine Opiates Screen Acetaminophen Ur Barbiturates Screen Ur Amphetamine Screen Ur Amphetamines Screen U Benzodiazepines Scrn Urine Cocaine Screen U Cannabinoids Screen Serum Alcohol Hepatitis A IgM Ab Hep Bs Antigen Hep B Core IgM Ab Hep C IgG Ab - Imaging Impressions Abdomen X-Ray 07/06/18 00:00 CONCLUSION: No evidence of obstruction. No foreign body is identified. Head MRI 07/06/18 00:00 CONCLUSION: No evidence of acute intracranial pathology. No masses are identified. Chest X-Ray 07/06/18 01:20 CONCLUSION: No acute disease Head CT 07/06/18 01:20 CONCLUSION: Negative CT Head non contrast. . Assessment and Plan - Plan HIV dz, AIDS 2 yrs ago CD4 280 H/o neurisyphilis sp treatment Presents with acute MS change and fever, menigitis/meningoencephalitis suspected - imaging studies negative, LP results P Cont Acyclovir , Ampicillin , Ceftriaxone and Vancomycin while CSF results P further rec's per CSF findings chk CD4 dw RN @ b/s
[2018-07-06 18:57] LABS: RBC on Tube 4 7 /mm3
[2018-07-06] MEDS ORDERED: Ketamine Inj 50 MG/5 ML Syringe IV.PUSH ONE (19:00)
[2018-07-06 19:01] LABS: Lymphocytes, CSF 84 %; Monocytes,CSF 16 %
--- NOTE | 2018-07-06 19:01 | MG ---
cc: Chay Harvey MD EEG RECORD NUMBER: [id number] DESCRIPTION: Noted to be awake at beginning of recording. Frequent rapid eye movement type artifact occurring. Posterior rhythm showing very low-amplitude theta and alpha activity, 10-20 microvolts. Mild movement and myogenic artifact at times when trying to get out of restraints. There is driving with photic stimulation. Single lead EKG showing sinus tachycardia. INTERPRETATION: Mild encephalopathy, rapid eye movement and some myogenic artifact noted as well. Clinical correlation. MD MIRI Rendon/ld/do , 04:48 PM , 04:54 PM
--- NOTE | 2018-07-06 20:05 | ECG ---
Date Performed: 07/06/2018 Time Performed: 01:13:46 PTAGE: 22 years EKG: SINUS TACHYCARDIA NONSPECIFIC T-WAVE ABNORMALITY NONSPECIFIC ANTREOLATERAL ST ELEVATION ABN ORMAL RHYTHM ECG PREVIOUS TRACING :12/29/16 @03.57 Compared to previous tracing, the nonspecific T-wave changes h ave increased but the nonspecific ST elevation was previously noted. There has been a further increas e in the sinus rate. Clinical correlation is recommended DOCTOR: Emelia Patricia Interpretating Date/Time 07/06/2018 20:03:14
[2018-07-06] MEDS ORDERED: Labetalol HCl Inj 100 MG/20 ML Vial IV.PUSH PRN (21:57)
[2018-07-06] MEDS ORDERED: amLODIPine 10 MG Tablet PO ONE (21:58)
[2018-07-07] MEDS: Sod Chloride 0.9% Inj 1,000 ML IV.CONT SCH ×5 (00:14→18:38)
[2018-07-07] MEDS: KCL 40 mEq/D5W/NaCl 0.9% Inj 1,000 ML IV.CONT SCH ×3 (00:17→21:06)
[2018-07-07] MEDS ORDERED: Chlorhexidine Gluconate 2% 1 Pack (2 Cloths) TOPICAL PRN (04:00)
[2018-07-07] MEDS: ACYCLOVIR IV.SIG SCH (04:22)
[2018-07-07] MEDS: SODIUM CHLOR 0.9% IV.SIG SCH (04:22)
[2018-07-07] MEDS: Chlorhexidine Gluconate 2% 1 Pack (2 Cloths) TOPICAL SCH (04:24)
[2018-07-07] MEDS: Vancomycin Inj 1,500 MG in Sodium Chlor 0.9% Inj 500 ML IV.SIG SCH ×2 (04:38→17:10)
[2018-07-07] MEDS: Insulin NovoLOG Aspart Correctional Sugar Inj SQ SCH ×5 (04:39→23:22)
[2018-07-07] MEDS: Labetalol HCl Inj 100 MG/20 ML Vial IV.PUSH PRN ×3 (06:05→14:43)
[2018-07-07 06:54] LABS: Baso % (Auto) 0.1 % (0.0-2.0); Eos # (Auto) 0.1 th/mm3 (0.0-0.4); Hematocrit 35.9 % (39.0-51.0); Hemoglobin 12.5 gm/dL (13.0-17.0); Lymph # (Auto) 2.1 th/mm3 (1.0-4.8); Lymph % (Auto) 32.9 % (9.0-44.0); Mean Corpuscular HGB Conc 34.9 % (32.0-36.0); Mean Corpuscular Hemoglobin 31.8 pg (27.0-34.0); Mean Corpuscular Volume 91.1 fL (80.0-100.0); Mean Platelet Volume 7.7 fL (7.0-11.0); Mono # (Auto) 0.6 th/mm3 (0.0-0.9); Mono % (Auto) 9.2 % (0.0-8.0); Neut # (Auto) 3.6 th/mm3 (1.8-7.7); Neut % (Auto) 56.8 % (16.0-70.0); Platelet Count 190 th/mm3 (150-450); Red Blood Count 3.94 mil/mm3 (4.50-5.90); Red Cell Distribution Width 13.9 % (11.6-17.2); White Blood Count 6.4 th/mm3 (4.0-11.0)
[2018-07-07 07:02] LABS: Activated Partial Thrombo Time 22.5 sec (24.3-30.1); INR 1.1 Ratio; Prothrombin Time 11.2 sec (9.8-11.6)
--- NOTE | 2018-07-07 07:24 | P.PNNEU ---
Subjective Active Medications: Active Medications Acetaminophen (Tylenol) 650 mg PO Q6H PRN PRN Reason: PAIN 1-10 AND/OR FEVER >101F Al Hydroxide/Mg Hydroxide (Milk Of Eulogio Gutiérrez) 30 ml PO Q12H PRN PRN Reason: Mild Constipation Albuterol (Duoneb Neb (Prn)) 1 ampul NEB Q2HR NEB PRN PRN Reason: WHEEZING Bisacodyl (Dulcolax Supp) 10 mg RECTAL DAILY PRN PRN Reason: SEVERE CONSITIPATION Chlorhexidine Gluconate (Chlorhexidine 2% Cloth) 3 pack TOPICAL DAILY@0400 [facility] Stop: 07/12/18 03:59 Last Admin: 07/07/18 04:24 Dose: 3 pack Chlorhexidine Gluconate (Chlorhexidine 2% Cloth) 3 pack TOPICAL DAILY@0400 PRN PRN Reason: Extra cloth needed Stop: 07/12/18 03:59 Dextrose (D50w Vial) 50 ml IV.PUSH UNSCH PRN PRN Reason: PER HYPOGLYCEMIA PROTOCOL Enalaprilat (Vasotec Inj) 2.5 mg IV.PUSH Q6H PRN PRN Reason: SBP>160, DBP>90 Enoxaparin Sodium (Lovenox Inj) 40 mg SQ Q24H [facility] Last Admin: 07/06/18 04:56 Dose: 40 mg Famotidine (Pepcid Pf Inj) 20 mg IV.PUSH Q12HR [facility] Last Admin: 07/06/18 21:02 Dose: 20 mg Glucagon (Glucagon Inj) 1 mg OTHER PRN PRN PRN Reason: for Hypoglycemia Protocol Sodium Chloride (Ns Inj) 1,000 mls @ 185 mls/hr IV.CONT .Q5H25M [facility] Last Admin: 07/07/18 04:22 Dose: Not Given Potassium Chloride/Dextrose/Sod Cl (D5w/Ns + Kcl 40 Meq Inj) 1,000 mls @ 100 mls/hr IV.CONT .Q10H [facility] Last Admin: 07/07/18 00:17 Dose: 100 mls/hr Magnesium Sulfate Inj 4 gm/ (Sodium Chloride) 100 mls @ 50 mls/hr IV.SIG UNSCH PRN PRN Reason: For Magnesium 0.9 - 1.1 mg/dL Magnesium Sulfate Inj 2 gm/ (Sodium Chloride) 100 mls @ 50 mls/hr IV.SIG UNSCH PRN PRN Reason: For Magnesium 1.2 - 1.6 mg/dL Potassium Chloride (Kcl 40 Meq Premix Inj) 40 meq in 100 mls @ 25 mls/hr IV.SIG Q2H PRN PRN Reason: For Potassium 2.8 - 3.2 mEq/L Potassium Chloride (Kcl 20 Meq Premix Inj) 20 meq in 100 mls @ 50 mls/hr IV.SIG Q2H PRN PRN Reason: For Potassium 3.3 - 3.5 mEq/L Potassium Chloride (Kcl 20 Meq Premix Inj) 20 meq in 100 mls @ 50 mls/hr IV.SIG Q2H PRN PRN Reason: For Potassium 2.8 - 3.2 mEq/L Potassium Phosphate 30 mmol/ (Sodium Chloride) 260 mls @ 42 mls/hr IV.SIG UNSCH PRN PRN Reason: SEE LABEL COMMENTS Sodium Phosphate 30 mmol/ (Sodium Chloride) 260 mls @ 42 mls/hr IV.SIG UNSCH PRN PRN Reason: For Phosphorus < 2.5 mg/dL Potassium Chloride (Kcl 40 Meq Premix Inj) 40 meq in 100 mls @ 25 mls/hr IV.SIG UNSCH PRN PRN Reason: For Potassium 3.3 - 3.5 mEq/L Ampicillin Sodium 2,000 mg/ (Sodium Chloride) 100 mls @ 400 mls/hr IV.SIG Q4H [facility] Last Admin: 07/07/18 04:23 Dose: 400 mls/hr Ceftriaxone Sodium 2,000 mg/ (Sodium Chloride) 100 mls @ 200 mls/hr IV.SIG Q12H [facility] Last Admin: 07/07/18 00:16 Dose: 200 mls/hr Acetaminophen (Ofirmev Inj) 1,000 mg in 100 mls @ 400 mls/hr IV.SIG Q6H PRN PRN Reason: fever Vancomycin HCl 1,500 mg/ (Sodium Chloride) 515 mls @ 250 mls/hr IV.SIG Q12H [facility] Last Admin: 07/07/18 04:38 Dose: 250 mls/hr Insulin Aspart (Novolog Insulin Correctional Sugar Inj) 0 unit SQ Q6HR [facility]; Protocol Last Admin: 07/07/18 06:11 Dose: Not Given Labetalol HCl (Trandate Inj) 10 mg IV.PUSH Q20M PRN PRN Reason: sbp > 180 Last Admin: 07/07/18 06:05 Dose: 10 mg Labetalol HCl (Trandate Inj) 10 mg IV.PUSH Q4H PRN PRN Reason: SBP>160, DBP>90 Lactulose (Lactulose Liq) 30 ml PO DAILY PRN PRN Reason: SEVERE CONSITIPATION Lorazepam (Ativan Inj) 1 mg IV.PUSH Q1H PRN PRN Reason: SEIZURES Last Admin: 07/06/18 15:43 Dose: 1 mg Magnesium Oxide (Mag-Ox) 800 mg PO UNSCH PRN PRN Reason: For Magnesium 1.2 - 1.6 mg/dL Miscellaneous Information ([facility] Ordered Lab Info) 0 each OTHER ONCE ONE Stop: 07/08/18 04:46 Ondansetron HCl (Zofran Inj) 4 mg IV.PUSH Q6H PRN PRN Reason: NAUSEA OR VOMITING Pharmacy Profile Note (Vancomycin Consult Pharmacy) 1 each OTHER UNSCH PRN PRN Reason: Pharmacy to dose Potassium Bicarb/Potassium Chloride (K-Lyte Cl Eff) 50 meq PO UNSCH PRN PRN Reason: For Potassium 3.3 - 3.5 mEq/L Potassium Phosphate (K-Phos Original) 2,000 mg PO Q4H PRN PRN Reason: Phosphorus Less Than 2.5 mg/dL Potassium Phosphate (K-Phos Original) 2,000 mg PO UNSCH PRN PRN Reason: SEE LABEL COMMENTS Senna/Docusate Sodium (Eva-Colace) 1 tab PO BID [facility] Last Admin: 07/06/18 21:03 Dose: Not Given Sennosides (Senokot) 17.2 mg PO Q12H PRN PRN Reason: Moderate Constipation Sodium Chloride (Ns Flush) 2 ml IV.FLUSH BID [facility] Last Admin: 07/06/18 21:03 Dose: 2 ml Sodium Chloride (Ns Flush) 2 ml IV.FLUSH PRN PRN PRN Reason: FLUSH AFTER USING IV ACCESS Allergies/Adverse Reactions: Allergies Allergy/AdvReac Type Severity Reaction Status Date / Time piperacillin Allergy Severe Hives Unverified 12/22/17 23:04 tazobactam Allergy Severe Hives Unverified 12/22/17 23:04 ketorolac Allergy Unknown Hives Unverified 12/22/17 23:04 Physical Exam Vital signs: Vital Signs 07/06/18 07:27 07/06/18 08:00 07/06/18 09:00 Temperature 101 F H Pulse Rate 99 H 104 H Respiratory Rate 29 H 22 Blood Pressure 167/108 H 194/102 H Pulse Oximetry 100 100 99 07/06/18 10:00 07/06/18 11:00 07/06/18 12:00 Temperature 99.5 F Pulse Rate 112 H 112 H 92 H Respiratory Rate 24 25 H 20 Blood Pressure 178/118 H 193/79 H 148/73 H Pulse Oximetry 99 99 97 07/06/18 14:00 07/06/18 16:00 07/06/18 18:00 Temperature 99.9 F H Pulse Rate 89 100 H 97 H Respiratory Rate 21 Blood Pressure 133/61 Pulse Oximetry 100 07/06/18 20:00 07/06/18 22:00 07/07/18 00:00 Temperature 98.7 F 98.6 F Pulse Rate 105 H 106 H 108 H Respiratory Rate 19 19 Blood Pressure 177/99 H 161/99 H Pulse Oximetry 100 100 07/07/18 02:00 07/07/18 04:00 07/07/18 06:00 Temperature 98.9 F Pulse Rate 101 H 97 H 114 H Respiratory Rate 21 Blood Pressure 159/71 H Pulse Oximetry 97 Intake & Output 07/06/18 07/07/18 07/07/18 18:59 06:59 18:59 Intake Total 3085.4 / 3085.4 1370.4 / 1370.4 Output Total 2400 / 2400 400 / 400 Balance 685.4 / 685.4 970.4 / 970.4 Intake: IV 3085.4 / 3085.4 1370.4 / 1370.4 D5W/NS + KCL 40 mEq Inj 1,000 1000 / 1000 1000 / 1000 ML @ 100 mls/hr IV.CONT .Q10H [facility] Rx#:[id number] NS Inj 1,000 ML @ 185 mls/hr IV 1000 / 1000 .CONT .Q5H25M [facility] Rx#:[id number] Zovirax Inj 1,020 MG In NS Inj 170.4 / 170.4 170.4 / 170.4 150 ML @ 170.4 mls/hr IV.SIG Q8H [facility] Rx#:[id number] Ampicillin Inj 2,000 MG In NS 300 / 300 200 / 200 Inj 100 ML @ 400 mls/hr IV.SIG Q4H [facility] Rx#:[id number] Vancomycin Inj 1,500 MG In NS 515 / 515 Inj 500 ML @ 250 mls/hr IV.SIG Q12H [facility] Rx#:[id number] Rocephin Inj 2,000 MG In NS Inj 100 / 100 100 ML @ 200 mls/hr IV.SIG Q12H [facility] Rx#:[id number] Oral 0 / 0 0 / 0 Output: Urine 2400 / 2400 400 / 400 Narrative: ox3 vff face sym 5/5 nl speech - Urinary Catheter Management Straight Cath placed during this visit: yes Reason for continuing: Not indwelling catheter Insertion date: 07/06/18 Insertion time: 01:49 Objective Laboratory Results - last 24 hr 07/06/18 07/06/18 07/06/18 01:50 08:44 12:14 WBC RBC Hgb Hct MCV MCH MCHC RDW Plt Count MPV Neut % (Auto) Lymph % (Auto) Ponce % (Auto) Eos % (Auto) Baso % (Auto) Neut # (Auto) Lymph # (Auto) Ponce # (Auto) Eos # (Auto) Baso # (Auto) WBC Differential Differential Comment PT INR APTT POC Glucose 91 CSF Volume (1) CSF Supernat Color (1) CSF Gross Blood (1) CSF Volume (2) CSF Supernat Color (2) CSF Gross Blood (2) CSF Volume (3) CSF Supernat Color (3) CSF Gross Blood (3) CSF Volume (4) CSF Supernat Color (4) CSF Gross Blood (4) CSF WBC (4) CSF RBC (4) CSF Neutrophils % CSF Lymphocytes % CSF Monocytes % CSF Glucose CSF LDH CSF Lactic Acid CSF Total Protein CSF N.mening B/E.coli K1 CSF N.meningitidis A/Y Nasal Screen MRSA (PCR) Urine Opiates Screen Neg Ur Barbiturates Screen Neg Ur Amphetamine Screen Neg U Benzodiazepines Scrn Neg Urine Cocaine Screen Neg U Cannabinoids Screen Neg Bacterial Ag Source Hepatitis A IgM Ab Nonreactive Hep Bs Antigen Nonreactive Hep B Core IgM Ab Nonreactive Hep C IgG Ab Nonreactive H.influenzae Type B Ag N. meningitidis C/W 135 Group B Strep Antigen S. pneumoniae Antigen 07/06/18 07/06/18 07/06/18 12:55 18:00 18:00 WBC RBC Hgb Hct MCV MCH MCHC RDW Plt Count MPV Neut % (Auto) Lymph % (Auto) Ponce % (Auto) Eos % (Auto) Baso % (Auto) Neut # (Auto) Lymph # (Auto) Ponce # (Auto) Eos # (Auto) Baso # (Auto) WBC Differential Differential Comment PT INR APTT POC Glucose CSF Volume (1) 2.5 CSF Supernat Color (1) Clear CSF Gross Blood (1) 0 CSF Volume (2) 2.5 CSF Supernat Color (2) Clear CSF Gross Blood (2) 0 CSF Volume (3) 2.5 CSF Supernat Color (3) Clear CSF Gross Blood (3) 0 CSF Volume (4) 4.0 CSF Supernat Color (4) Clear CSF Gross Blood (4) 0 CSF WBC (4) 2 CSF RBC (4) 7 H CSF Neutrophils % Not Reportable CSF Lymphocytes % 84 CSF Monocytes % 16 CSF Glucose CSF LDH CSF Lactic Acid CSF Total Protein CSF N.mening B/E.coli K1 Cancelled CSF N.meningitidis A/Y Cancelled Nasal Screen MRSA (PCR) Not detected Urine Opiates Screen Ur Barbiturates Screen Ur Amphetamine Screen U Benzodiazepines Scrn Urine Cocaine Screen U Cannabinoids Screen Bacterial Ag Source Cancelled Hepatitis A IgM Ab Hep Bs Antigen Hep B Core IgM Ab Hep C IgG Ab H.influenzae Type B Ag Cancelled N. meningitidis C/W 135 Cancelled Group B Strep Antigen Cancelled S. pneumoniae Antigen Cancelled 07/06/18 07/06/18 07/06/18 18:00 18:00 18:00 WBC RBC Hgb Hct MCV MCH MCHC RDW Plt Count MPV Neut % (Auto) Lymph % (Auto) Ponce % (Auto) Eos % (Auto) Baso % (Auto) Neut # (Auto) Lymph # (Auto) Ponce # (Auto) Eos # (Auto) Baso # (Auto) WBC Differential Differential Comment PT INR APTT POC Glucose CSF Volume (1) CSF Supernat Color (1) CSF Gross Blood (1) CSF Volume (2) CSF Supernat Color (2) CSF Gross Blood (2) CSF Volume (3) CSF Supernat Color (3) CSF Gross Blood (3) CSF Volume (4) CSF Supernat Color (4) CSF Gross Blood (4) CSF WBC (4) CSF RBC (4) CSF Neutrophils % CSF Lymphocytes % CSF Monocytes % CSF Glucose 50 CSF LDH 15 CSF Lactic Acid 1.6 CSF Total Protein CSF N.mening B/E.coli K1 CSF N.meningitidis A/Y Nasal Screen MRSA (PCR) Urine Opiates Screen Ur Barbiturates Screen Ur Amphetamine Screen U Benzodiazepines Scrn Urine Cocaine Screen U Cannabinoids Screen Bacterial Ag Source Hepatitis A IgM Ab Hep Bs Antigen Hep B Core IgM Ab Hep C IgG Ab H.influenzae Type B Ag N. meningitidis C/W 135 Group B Strep Antigen S. pneumoniae Antigen 07/06/18 07/06/18 07/07/18 18:00 18:18 04:30 WBC RBC Hgb Hct MCV MCH MCHC RDW Plt Count MPV Neut % (Auto) Lymph % (Auto) Ponce % (Auto) Eos % (Auto) Baso % (Auto) Neut # (Auto) Lymph # (Auto) Ponce # (Auto) Eos # (Auto) Baso # (Auto) WBC Differential Differential Comment PT INR APTT POC Glucose 108 211 H CSF Volume (1) CSF Supernat Color (1) CSF Gross Blood (1) CSF Volume (2) CSF Supernat Color (2) CSF Gross Blood (2) CSF Volume (3) CSF Supernat Color (3) CSF Gross Blood (3) CSF Volume (4) CSF Supernat Color (4) CSF Gross Blood (4) CSF WBC (4) CSF RBC (4) CSF Neutrophils % CSF Lymphocytes % CSF Monocytes % CSF Glucose CSF LDH CSF Lactic Acid CSF Total Protein 47.8 H CSF N.mening B/E.coli K1 CSF N.meningitidis A/Y Nasal Screen MRSA (PCR) Urine Opiates Screen Ur Barbiturates Screen Ur Amphetamine Screen U Benzodiazepines Scrn Urine Cocaine Screen U Cannabinoids Screen Bacterial Ag Source Hepatitis A IgM Ab Hep Bs Antigen Hep B Core IgM Ab Hep C IgG Ab H.influenzae Type B Ag N. meningitidis C/W 135 Group B Strep Antigen S. pneumoniae Antigen 07/07/18 07/07/18 07/07/18 05:52 05:52 06:09 WBC 6.4 RBC 3.94 L Hgb 12.5 L Hct 35.9 L MCV 91.1 MCH 31.8 MCHC 34.9 RDW 13.9 Plt Count 190 MPV 7.7 Neut % (Auto) 56.8 Lymph % (Auto) 32.9 Ponce % (Auto) 9.2 H Eos % (Auto) 1.0 Baso % (Auto) 0.1 Neut # (Auto) 3.6 Lymph # (Auto) 2.1 Ponce # (Auto) 0.6 Eos # (Auto) 0.1 Baso # (Auto) 0.0 WBC Differential . Differential Comment Auto diff final PT 11.2 INR 1.1 APTT 22.5 L POC Glucose 179 H CSF Volume (1) CSF Supernat Color (1) CSF Gross Blood (1) CSF Volume (2) CSF Supernat Color (2) CSF Gross Blood (2) CSF Volume (3) CSF Supernat Color (3) CSF Gross Blood (3) CSF Volume (4) CSF Supernat Color (4) CSF Gross Blood (4) CSF WBC (4) CSF RBC (4) CSF Neutrophils % CSF Lymphocytes % CSF Monocytes % CSF Glucose CSF LDH CSF Lactic Acid CSF Total Protein CSF N.mening B/E.coli K1 CSF N.meningitidis A/Y Nasal Screen MRSA (PCR) Urine Opiates Screen Ur Barbiturates Screen Ur Amphetamine Screen U Benzodiazepines Scrn Urine Cocaine Screen U Cannabinoids Screen Bacterial Ag Source Hepatitis A IgM Ab Hep Bs Antigen Hep B Core IgM Ab Hep C IgG Ab H.influenzae Type B Ag N. meningitidis C/W 135 Group B Strep Antigen S. pneumoniae Antigen Microbiology 07/06/18 18:00 Gram Stain - Final Lumbar Puncture Review/Management - Review/Management Plan: imp mri eeg and LP neg he is back to nl admits to some depression bp better but still high plan i dced acyclovir rec have psych see him get bp 120/70 oob
[2018-07-07 07:32] LABS: Alanine Aminotransferase 39 U/L (12-78); Albumin 2.9 g/dL (3.4-5.0); Alkaline Phosphatase 74 U/L (45-117); Anion Gap 10 meq/L (5-15); Aspartate Aminotransferase 31 U/L (15-37); Blood Urea Nitrogen 9 mg/dL (7-18); Calcium 7.7 mg/dL (8.5-10.1); Carbon Dioxide 22.4 meq/L (21.0-32.0); Chloride 112 meq/L (98-107); Glomerular Filtration Rate 81 mL/min (>89); Glucose,Random 183 mg/dL (74-106); Sodium 144 meq/L (136-145); Total Protein 6.6 g/dL (6.4-8.2)
--- NOTE | 2018-07-07 08:00 | P.PNCC ---
Subjective Subjective Remarks/Hospital Course: Hospital Course: 22-year-old gentleman with history of type 1 diabetes, HIV, neurosyphilis treated here 2 years ago was brought in by his classmates. The patient is altered, does not follow commands, keeps looking around, moves all 4 extremities. His diabetes is under control with negative ketones and normal pH , negative beta butyric acid and normal anion gap. Due to altered mental status he required 4 point restraints in the emergency department to be applied. He was also found to be hypertensive. His initial drug screen urine toxicology test was negative. No information is available from the patient since he is nonverbal and somewhat catatonic. Subjective: 05/06: patient woke up overnight and back to neurologic baseline. very depressed affect on exam today. He states he took 8-9 "Jet Asleep" pills (by Google search , diphenhydramine 50mg tabs). He states he takes 2-3 at night and can't sleep. He denies suicidal ideations. He states he is taking his HAART therapy, even up until yesterday. LP with normal opening pressure and no leukocytes. Objective Vital Signs / I&O: Vital Signs 07/06/18 08:00 07/06/18 09:00 07/06/18 10:00 Temperature 38.3 C H Pulse Rate 99 H 104 H 112 H Respiratory Rate 29 H 22 24 Blood Pressure 167/108 H 194/102 H 178/118 H Pulse Oximetry 100 99 99 07/06/18 11:00 07/06/18 12:00 07/06/18 14:00 Temperature 37.5 C Pulse Rate 112 H 92 H 89 Respiratory Rate 25 H 20 Blood Pressure 193/79 H 148/73 H Pulse Oximetry 99 97 07/06/18 16:00 07/06/18 18:00 07/06/18 20:00 Temperature 37.7 C H 37.1 C Pulse Rate 100 H 97 H 105 H Respiratory Rate 21 19 Blood Pressure 133/61 177/99 H Pulse Oximetry 100 100 07/06/18 22:00 07/07/18 00:00 07/07/18 02:00 Temperature 37.0 C Pulse Rate 106 H 108 H 101 H Respiratory Rate 19 Blood Pressure 161/99 H Pulse Oximetry 100 07/07/18 04:00 07/07/18 06:00 Temperature 37.2 C Pulse Rate 97 H 114 H Respiratory Rate 21 Blood Pressure 159/71 H Pulse Oximetry 97 Intake & Output 07/06/18 07/07/18 07/07/18 18:59 06:59 18:59 Intake Total 3085.4 / 3085.4 1370.4 / 1370.4 Output Total 2400 / 2400 400 / 400 Balance 685.4 / 685.4 970.4 / 970.4 Intake: IV 3085.4 / 3085.4 1370.4 / 1370.4 D5W/NS + KCL 40 mEq Inj 1,000 1000 / 1000 1000 / 1000 ML @ 100 mls/hr IV.CONT .Q10H [facility] Rx#:[id number] NS Inj 1,000 ML @ 185 mls/hr IV 1000 / 1000 .CONT .Q5H25M [facility] Rx#:[id number] Zovirax Inj 1,020 MG In NS Inj 170.4 / 170.4 170.4 / 170.4 150 ML @ 170.4 mls/hr IV.SIG Q8H [facility] Rx#:[id number] Ampicillin Inj 2,000 MG In NS 300 / 300 200 / 200 Inj 100 ML @ 400 mls/hr IV.SIG Q4H [facility] Rx#:[id number] Vancomycin Inj 1,500 MG In NS 515 / 515 Inj 500 ML @ 250 mls/hr IV.SIG Q12H [facility] Rx#:[id number] Rocephin Inj 2,000 MG In NS Inj 100 / 100 100 ML @ 200 mls/hr IV.SIG Q12H [facility] Rx#:[id number] Oral 0 / 0 0 / 0 Output: Urine 2400 / 2400 400 / 400 Result Diagrams: 07/07/18 05:52 07/07/18 05:52 Objective Remarks: gen: young male, awake, sad affect. no acute distress heent: nc. at. perrl. mmm. neck: no jvd. trachea midline. chest: room air. unlabored. equal chest rise. cv: normal rate, regular rhythm. blood pressure improved. abd: soft, nontender, nondistended. no guarding. extr: no edema. distal pulses 2+. extr: RASS 0. sad affect. moves all extremities. follows commands. no focal deficits. Assessment and Plan - Assessment and Plan Plan: Assessment: 22yM with acute encephalopathy now diagnosed as toxic encephalopathy secondary to diphenhydramine overdose. I think it is prudent given his fever and past history to keep him inpatient through 48h negative cultures. I also think it is prudent to ask psychiatry to evaluate him given his sad affect and life-threatening overdose, even though he denies suicidal ideation and states that this was an unintentional overdose. I do think he is safe to leave ICU. Toxic Encephalopathy Diphenhydramine overdose -CT head negative -EEG severe slowing - MRI negative - LP not consistent with infection - keep for 48h negative cultures - psych consult for overdose - stable to leave ICU - back to neurologic baseline. Hypertension -Labetalol and Vasotec as needed to keep SBP less than 180 Diabetes mellitus, type I -Insulin sliding scale History of HIV -patient states he is taking his HAART therapy, up to today. DVT GI prophylaxis -Teds SCDs -restart lovenox. -Pepcid
[2018-07-07] MEDS ORDERED: hydrALAZINE 50 MG Tablet PO PRN (09:29)
[2018-07-07] MEDS: Senna/Docusate Sodium 8.6/50 MG Tablet PO SCH ×2 (10:13→21:07)
[2018-07-07] MEDS: Famotidine PF Inj 20 MG/2 ML Vial IV.PUSH SCH ×2 (10:13→21:08)
--- NOTE | 2018-07-07 19:15 | P.CONPSY ---
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 As per chart, patient required four point restraints in the ED, received lorazepam as ETO x 1, had extensive medical workup with no acute findings on imaging, EEG or lumbar puncture in the context of history of HIV and possible related infections which neurology and infectious disease have been involved in his care. Patient was found lying on hospital bed with friend at bedside but interviewed alone. Patient noted to be alert and oriented x 3, states not being sure what happened that led to his admission. He recalls having taken his insulin the night before, felt nauseous and does remember after that but last being at his dorm. As per chart patient was found in school with altered mental status. He states that for the past several weeks he has been having difficulty with sleep, appetite, and energy, no change in concentration, mood feeling "a little depressed" along with decreased pleasure in hobbies, and feelings of guilt "everything that has happened is my fault'. Patient initially denied having had any suicidal ideations but later admitted to have likely having overdosed on over the counter diphenhydramine in a suicide attempt. He mentions that several weeks ago a 9 month relationship had ended which was unexpected and feeling guilty of not graduating on time. Denies rest of psychiaric ROS. Denies any perceptual disturbances or delusions. Currently continues to be very dysphoric and require inpatient psychiatric stabilization. Family psychiatric history: denies Past psychiatric history: denies previous diagnosis, psychiatric admissions, suicide attempts or self injurious behavior., no prior mental health services, no previous medication trials aside from zolpidem for insomnia. Substance use history: EToH use 1-2 times per week, THC "not too often", denies use of any other drugs. Past medical history: DM, HIV, HTN Allergies: piperacillin, tazobactam, ketorolac Social history: single, no children, domiciled with roommate, current in college , no service, no access to firearms. Collateral contact: (Milvia Scott - mother [phone]) Review of Systems All other systems reviewed negative except as stated [facility] - History History Provided By: Patient, Medical Record - Medical History Medical History: Medical History (Last Updated 07/06/18 @ 18:41 by Robyn Damon MD) HIV (human immunodeficiency virus infection) Neurosyphilis Type 1 diabetes - Surgical History Surgical History: Surgical History (Last Reviewed 07/06/18 @ 18:40 by Robyn Damon MD) No history of previous surgery - Family History Family History: Family History (Last Updated 07/06/18 @ 18:40 by Robyn Damon MD) Other No pertinent family history - Tobacco History Second Hand Smoke Exposure: No Smoking Status: Unknown if ever smoked - Alcohol History How Often Do You Have a Drink Containing Alcohol: Never - Travel History Recent Travel in the [facility] Within the Last 8 Weeks: No Recent Travel Out of the Country Within the Last 8 Weeks: No - Immunization History Tetanus Immunization: <5 Years Hx Influenza Vaccine This Season: Yes Medications and Allergies Active Medications: Active Medications Acetaminophen (Tylenol) 650 mg PO Q6H PRN PRN Reason: PAIN 1-10 AND/OR FEVER >101F Last Admin: 07/07/18 17:08 Dose: 650 mg Al Hydroxide/Mg Hydroxide (Milk Of Eulogio Lithalia) 30 ml PO Q12H PRN PRN Reason: Mild Constipation Albuterol (Duoneb Neb (Prn)) 1 ampul NEB Q2HR NEB PRN PRN Reason: WHEEZING Bisacodyl (Dulcolax Supp) 10 mg RECTAL DAILY PRN PRN Reason: SEVERE CONSITIPATION Chlorhexidine Gluconate (Chlorhexidine 2% Cloth) 3 pack TOPICAL DAILY@0400 [facility] Stop: 07/12/18 03:59 Last Admin: 07/07/18 04:24 Dose: 3 pack Chlorhexidine Gluconate (Chlorhexidine 2% Cloth) 3 pack TOPICAL DAILY@0400 PRN PRN Reason: Extra cloth needed Stop: 07/12/18 03:59 Clonidine HCl (Catapres) 0.3 mg PO Q8H [facility] Last Admin: 07/07/18 17:08 Dose: 0.3 mg Dextrose (D50w Vial) 50 ml IV.PUSH UNSCH PRN PRN Reason: PER HYPOGLYCEMIA PROTOCOL Enalaprilat (Vasotec Inj) 2.5 mg IV.PUSH Q6H PRN PRN Reason: SBP>160, DBP>90 Enoxaparin Sodium (Lovenox Inj) 40 mg SQ Q24H [facility] Last Admin: 07/06/18 04:56 Dose: 40 mg Famotidine (Pepcid Pf Inj) 20 mg IV.PUSH Q12HR [facility] Last Admin: 07/07/18 10:13 Dose: 20 mg Glucagon (Glucagon Inj) 1 mg OTHER PRN PRN PRN Reason: for Hypoglycemia Protocol Hydralazine HCl (Apresoline) 50 mg PO Q8H PRN PRN Reason: sbp > 180 Last Admin: 07/07/18 14:20 Dose: 50 mg Sodium Chloride (Ns Inj) 1,000 mls @ 185 mls/hr IV.CONT .Q5H25M [facility] Last Admin: 07/07/18 18:38 Dose: Not Given Potassium Chloride/Dextrose/Sod Cl (D5w/Ns + Kcl 40 Meq Inj) 1,000 mls @ 100 mls/hr IV.CONT .Q10H [facility] Last Admin: 07/07/18 10:13 Dose: 100 mls/hr Magnesium Sulfate Inj 4 gm/ (Sodium Chloride) 100 mls @ 50 mls/hr IV.SIG UNSCH PRN PRN Reason: For Magnesium 0.9 - 1.1 mg/dL Magnesium Sulfate Inj 2 gm/ (Sodium Chloride) 100 mls @ 50 mls/hr IV.SIG UNSCH PRN PRN Reason: For Magnesium 1.2 - 1.6 mg/dL Potassium Chloride (Kcl 40 Meq Premix Inj) 40 meq in 100 mls @ 25 mls/hr IV.SIG Q2H PRN PRN Reason: For Potassium 2.8 - 3.2 mEq/L Potassium Chloride (Kcl 20 Meq Premix Inj) 20 meq in 100 mls @ 50 mls/hr IV.SIG Q2H PRN PRN Reason: For Potassium 3.3 - 3.5 mEq/L Potassium Chloride (Kcl 20 Meq Premix Inj) 20 meq in 100 mls @ 50 mls/hr IV.SIG Q2H PRN PRN Reason: For Potassium 2.8 - 3.2 mEq/L Potassium Phosphate 30 mmol/ (Sodium Chloride) 260 mls @ 42 mls/hr IV.SIG UNSCH PRN PRN Reason: SEE LABEL COMMENTS Sodium Phosphate 30 mmol/ (Sodium Chloride) 260 mls @ 42 mls/hr IV.SIG UNSCH PRN PRN Reason: For Phosphorus < 2.5 mg/dL Potassium Chloride (Kcl 40 Meq Premix Inj) 40 meq in 100 mls @ 25 mls/hr IV.SIG UNSCH PRN PRN Reason: For Potassium 3.3 - 3.5 mEq/L Ampicillin Sodium 2,000 mg/ (Sodium Chloride) 100 mls @ 400 mls/hr IV.SIG Q4H [facility] Last Infusion: 07/07/18 16:37 Dose: Infused Ceftriaxone Sodium 2,000 mg/ (Sodium Chloride) 100 mls @ 200 mls/hr IV.SIG Q12H [facility] Last Infusion: 07/07/18 10:50 Dose: Infused Acetaminophen (Ofirmev Inj) 1,000 mg in 100 mls @ 400 mls/hr IV.SIG Q6H PRN PRN Reason: fever Vancomycin HCl 1,500 mg/ (Sodium Chloride) 515 mls @ 250 mls/hr IV.SIG Q12H [facility] Last Admin: 07/07/18 17:10 Dose: 250 mls/hr Insulin Aspart (Novolog Insulin Correctional Sugar Inj) 0 unit SQ Q6HR [facility]; Protocol Last Admin: 07/07/18 18:11 Dose: 7 unit Labetalol HCl (Trandate Inj) 10 mg IV.PUSH Q20M PRN PRN Reason: sbp > 180 Last Admin: 07/07/18 14:43 Dose: 10 mg Labetalol HCl (Trandate Inj) 10 mg IV.PUSH Q4H PRN PRN Reason: SBP>160, DBP>90 Lactulose (Lactulose Liq) 30 ml PO DAILY PRN PRN Reason: SEVERE CONSITIPATION Lorazepam (Ativan Inj) 1 mg IV.PUSH Q1H PRN PRN Reason: SEIZURES Last Admin: 07/06/18 15:43 Dose: 1 mg Magnesium Oxide (Mag-Ox) 800 mg PO UNSCH PRN PRN Reason: For Magnesium 1.2 - 1.6 mg/dL Miscellaneous Information ([facility] Ordered Lab Info) 0 each OTHER ONCE ONE Stop: 07/08/18 04:46 Ondansetron HCl (Zofran Inj) 4 mg IV.PUSH Q6H PRN PRN Reason: NAUSEA OR VOMITING Pharmacy Profile Note (Vancomycin Consult Pharmacy) 1 each OTHER UNSCH PRN PRN Reason: Pharmacy to dose Potassium Bicarb/Potassium Chloride (K-Lyte Cl Eff) 50 meq PO UNSCH PRN PRN Reason: For Potassium 3.3 - 3.5 mEq/L Potassium Phosphate (K-Phos Original) 2,000 mg PO Q4H PRN PRN Reason: Phosphorus Less Than 2.5 mg/dL Potassium Phosphate (K-Phos Original) 2,000 mg PO UNSCH PRN PRN Reason: SEE LABEL COMMENTS Senna/Docusate Sodium (Eva-Colace) 1 tab PO BID [facility] Last Admin: 07/07/18 10:13 Dose: 1 tab Sennosides (Senokot) 17.2 mg PO Q12H PRN PRN Reason: Moderate Constipation Sodium Chloride (Ns Flush) 2 ml IV.FLUSH BID [facility] Last Admin: 07/07/18 10:13 Dose: 2 ml Sodium Chloride (Ns Flush) 2 ml IV.FLUSH PRN PRN PRN Reason: FLUSH AFTER USING IV ACCESS Allergies Allergy/AdvReac Type Severity Reaction Status Date / Time piperacillin Allergy Severe Hives Unverified 12/22/17 23:04 tazobactam Allergy Severe Hives Unverified 12/22/17 23:04 ketorolac Allergy Unknown Hives Unverified 12/22/17 23:04 Home Medications Medication Instructions Recorded Confirmed Type insulin lispro protamin-lispro 1 sliding scale dose SUB-Q UD 07/06/18 07/06/18 History [Humalog Mix 50-50 Insuln U-100] Exam Vital signs: Vital Signs 07/06/18 20:00 07/06/18 22:00 07/07/18 00:00 Temperature 98.7 F 98.6 F Pulse Rate 105 H 106 H 108 H Respiratory Rate 19 19 Blood Pressure 177/99 H 161/99 H Pulse Oximetry 100 100 07/07/18 02:00 07/07/18 04:00 07/07/18 06:00 Temperature 98.9 F Pulse Rate 101 H 97 H 114 H Respiratory Rate 21 Blood Pressure 159/71 H Pulse Oximetry 97 07/07/18 07:00 07/07/18 08:00 07/07/18 10:00 Temperature 99 F Pulse Rate 108 H 104 H Respiratory Rate 23 Blood Pressure 203/92 H Pulse Oximetry 98 100 07/07/18 12:00 07/07/18 16:00 07/07/18 17:14 Temperature 98.9 F 98.9 F 98.3 F Pulse Rate 87 85 97 H Respiratory Rate 20 20 18 Blood Pressure 171/74 H 155/62 H 151/88 H Pulse Oximetry 100 100 99 07/07/18 18:10 Temperature Pulse Rate Respiratory Rate 6 L Blood Pressure Pulse Oximetry Intake & Output 07/07/18 07/07/18 07/08/18 06:59 18:59 06:59 Intake Total 1570.4 / 1570.4 2715 / 2715 Output Total 400 / 400 2099 / 2099 Balance 1170.4 / 1170.4 615 / 615 Weight 97.6 kg Intake: IV 1570.4 / 1570.4 1914 / 1915 D5W/NS + KCL 40 mEq Inj 1,000 1000 / 1000 1000 / 1000 ML @ 100 mls/hr IV.CONT .Q10H [facility] Rx#:[id number] Zovirax Inj 1,020 MG In NS Inj 170.4 / 170.4 150 ML @ 170.4 mls/hr IV.SIG Q8H [facility] Rx#:[id number] Ampicillin Inj 2,000 MG In NS 300 / 300 300 / 300 Inj 100 ML @ 400 mls/hr IV.SIG Q4H [facility] Rx#:[id number] Vancomycin Inj 1,500 MG In NS 515 / 515 Inj 500 ML @ 250 mls/hr IV.SIG Q12H [facility] Rx#:[id number] Rocephin Inj 2,000 MG In NS Inj 100 / 100 100 / 100 100 ML @ 200 mls/hr IV.SIG Q12H [facility] Rx#:[id number] Oral 0 / 0 800 / 800 Output: Urine 400 / 400 2099 / 2100 Narrative: Not noted to be in acute distress, no gross motor abnormaliities, no signs of tremor or EPS, some psychomotor retardation. - Constitutional no acute distress, cooperative Mental Status Examination Appearance: Appropriate Consciousness: Alert Orientation: Person, Place, Date/Time Motor Activity: Other (not formally assessed) Speech: Slow (slightly), Other (low volume) Language: Adequate Fund of Knowledge: Inadequate Attention and Concentration: Adequate Memory: Impaired (surrounding events prior to his admission.) Mood: Sad Affect: Sad Thought Process & Associations: Intact, Linear Thought Content: Appropriate Hallucination Type: None Delusion Type: None Suicidal Ideation: Yes Suicidal Plan: Yes Suicidal Intention: Yes Homicidal Ideation: No Homicidal Plan: No Homicidal Intention: No Insight: Fair Judgment: Impulsive Assessment and Plan - Assessment (1) Major depressive disorder Code(s): F32.9 - Major depressive disorder, single episode, unspecified Status : Acute - Plan Plan: Estimated LOS: [] days Patient is a 22 y/o man, single, currently in [employer], domiciled with roommate, with no formal past psychiatric history, denies prior psychiatric diagnosis, hospitalizations suicide attempts of self injurious behavior with past medical history of HIV, HTN, DM, who was brought in by EMS after being found in school slumped over, staring, paranoid, and admitted to the medical service for altered mental status and admitted to feeling depressed and suspected diphenhydramine overdose in a suicide attempt which patient requires inpatient psychiatric stabilization. Patient will be placed under Silva act and recommend 1:1 observation for safety while on the medical floor. Once medically stable and clear, patient can be tranferred to the med/psych unit for further psychiatric management. Consult appreciated. Justification for Continued Inpatient Stay: At risk for further decompensation at lower level of care.
--- NOTE | 2018-07-07 19:25 | P.PNID ---
Subjective Remarks: now fully awake and back to baseline with his mental status afebrile Reports no fever prior to admission co some headache CSF with bordeline elevation of proteis and few RBC RPR + 1:2 VDRL P Antibiotics: accylovir ampicill CFTX vancomycin Past Medical History: HIV neurosyph Allergies/Adverse Reactions: Allergies piperacillin Allergy (Severe, Unverified 12/22/17 23:04) Hives Given Zosyn and Toradol at same time with allergic reaction of hives; uncertain at this time which drug caused the allergic reaction tazobactam Allergy (Severe, Unverified 12/22/17 23:04) Hives Given Zosyn and Toradol at same time with allergic reaction of hives; uncertain at this time which drug caused the allergic reaction ketorolac Allergy (Unknown, Unverified 12/22/17 23:04) Hives Given Zosyn and Toradol at same time with allergic reaction of hives; uncertain at this time which drug caused the allergic reaction Objective Vital Signs 07/06/18 20:00 07/06/18 22:00 07/07/18 00:00 Temperature 98.7 F 98.6 F Pulse Rate 105 H 106 H 108 H Respiratory Rate 19 19 Blood Pressure 177/99 H 161/99 H Pulse Oximetry 100 100 07/07/18 02:00 07/07/18 04:00 07/07/18 06:00 Temperature 98.9 F Pulse Rate 101 H 97 H 114 H Respiratory Rate 21 Blood Pressure 159/71 H Pulse Oximetry 97 07/07/18 07:00 07/07/18 08:00 07/07/18 10:00 Temperature 99 F Pulse Rate 108 H 104 H Respiratory Rate 23 Blood Pressure 203/92 H Pulse Oximetry 98 100 07/07/18 12:00 07/07/18 16:00 07/07/18 17:14 Temperature 98.9 F 98.9 F 98.3 F Pulse Rate 87 85 97 H Respiratory Rate 20 20 18 Blood Pressure 171/74 H 155/62 H 151/88 H Pulse Oximetry 100 100 99 07/07/18 18:10 Temperature Pulse Rate Respiratory Rate 6 L Blood Pressure Pulse Oximetry Intake & Output 07/07/18 07/07/18 07/08/18 06:59 18:59 06:59 Intake Total 1570.4 / 1570.4 2715 / 2715 Output Total 400 / 400 2100 / 2100 Balance 1170.4 / 1170.4 615 / 615 Weight 97.6 kg Intake: IV 1570.4 / 1570.4 191 / 1914 D5W/NS + KCL 40 mEq Inj 1,000 1000 / 1000 1000 / 1000 ML @ 100 mls/hr IV.CONT .Q10H [facility] Rx#:[id number] Zovirax Inj 1,020 MG In NS Inj 170.4 / 170.4 150 ML @ 170.4 mls/hr IV.SIG Q8H [facility] Rx#:[id number] Ampicillin Inj 2,000 MG In NS 300 / 300 300 / 300 Inj 100 ML @ 400 mls/hr IV.SIG Q4H [facility] Rx#:[id number] Vancomycin Inj 1,500 MG In NS 515 / 515 Inj 500 ML @ 250 mls/hr IV.SIG Q12H [facility] Rx#:[id number] Rocephin Inj 2,000 MG In NS Inj 100 / 100 100 / 100 100 ML @ 200 mls/hr IV.SIG Q12H [facility] Rx#:[id number] Oral 0 / 0 800 / 800 Output: Urine 400 / 400 2100 / 2100 07/06/18 01:50 Random Urine Urine Culture - Preliminary No growth in 24 hours 07/06/18 09:04 Blood - Peripheral Aerobic Blood Culture - Preliminary No growth in 1 day 07/06/18 09:04 Blood - Peripheral Anaerobic Blood Culture - Preliminary No growth in 1 day 07/06/18 09:00 Blood - Peripheral Aerobic Blood Culture - Preliminary No growth in 1 day 07/06/18 09:00 Blood - Peripheral Anaerobic Blood Culture - Preliminary No growth in 1 day 07/06/18 18:00 Lumbar Puncture Gram Stain - Final 07/06/18 18:00 Lumbar Puncture CSF Culture - Preliminary No growth in 24 hours 07/06/18 18:00 Cerebral Spinal Fluid - Lumbar Puncture Fungal Smear - Pending 07/06/18 18:00 Cerebral Spinal Fluid - Lumbar Puncture Fungal Culture - Pending 07/06/18 18:00 Cerebral Spinal Fluid - Lumbar Puncture Acid Fast Bacilli Smear - Pending 07/06/18 18:00 Cerebral Spinal Fluid - Lumbar Puncture Mycobacterial Culture - Pending Lab - Hematology Results 07/06/18 07/06/18 07/07/18 01:20 01:20 05:52 WBC 7.3 6.4 RBC 4.32 L 3.94 L Hgb 13.6 12.5 L POC Hgb (Calc) 12.9 L Hct 39.5 35.9 L POC Hct 38.0 L MCV 91.5 91.1 MCH 31.6 31.8 MCHC 34.5 34.9 RDW 13.3 13.9 Plt Count 217 190 MPV 8.0 7.7 Neut % (Auto) 64.4 56.8 Lymph % (Auto) 28.0 32.9 [place] % (Auto) 6.1 9.2 H Eos % (Auto) 0.1 1.0 Baso % (Auto) 1.4 0.1 Neut # (Auto) 4.7 3.6 Lymph # (Auto) 2.1 2.1 [place] # (Auto) 0.4 0.6 Eos # (Auto) 0.0 0.1 Baso # (Auto) 0.1 0.0 WBC Differential . . Differential Comment Auto diff final Auto diff final Lab - Chemistry Results 07/06/18 07/06/18 07/06/18 01:09 01:20 01:20 POC Sodium 138 Sodium POC Potassium 3.3 L Potassium POC Chloride 102 Chloride Carbon Dioxide Anion Gap POC BUN 16 BUN Creatinine POC Creatinine 1.3 Estimated GFR POC Glucose 113 H 123 H Random Glucose Calcium Phosphorus Magnesium Total Bilirubin 0.2 Direct Bilirubin 0.1 Indirect Bilirubin 0.1 AST 49 H ALT 55 Alkaline Phosphatase 87 Troponin I Less than 0.02 L Total Protein 8.0 Albumin 3.6 Beta-Hydroxybutyric Acd 0.06 TSH 2.170 07/06/18 07/06/18 07/06/18 03:17 06:15 12:14 POC Sodium Sodium POC Potassium Potassium POC Chloride Chloride Carbon Dioxide Anion Gap POC BUN BUN Creatinine POC Creatinine Estimated GFR POC Glucose 71 90 91 Random Glucose Calcium Phosphorus Magnesium Total Bilirubin Direct Bilirubin Indirect Bilirubin AST ALT Alkaline Phosphatase Troponin I Total Protein Albumin Beta-Hydroxybutyric Acd TSH 07/06/18 07/07/18 07/07/18 18:18 04:30 05:52 POC Sodium Sodium 144 POC Potassium Potassium 4.0 POC Chloride Chloride 112 H Carbon Dioxide 22.4 Anion Gap 10 POC BUN BUN 9 Creatinine 1.34 H POC Creatinine Estimated GFR 81 L POC Glucose 108 211 H Random Glucose 183 H Calcium 7.7 L Phosphorus 3.0 Magnesium 2.0 Total Bilirubin 0.6 Direct Bilirubin Indirect Bilirubin AST 31 ALT 39 Alkaline Phosphatase 74 Troponin I Total Protein 6.6 D Albumin 2.9 L D Beta-Hydroxybutyric Acd TSH 07/07/18 07/07/18 06:09 17:06 POC Sodium Sodium POC Potassium Potassium POC Chloride Chloride Carbon Dioxide Anion Gap POC BUN BUN Creatinine POC Creatinine Estimated GFR POC Glucose 179 H 287 H Random Glucose Calcium Phosphorus Magnesium Total Bilirubin Direct Bilirubin Indirect Bilirubin AST ALT Alkaline Phosphatase Troponin I Total Protein Albumin Beta-Hydroxybutyric Acd TSH Imaging: ITS Impressions Abdomen X-Ray 07/06/18 00:00 CONCLUSION: No evidence of obstruction. No foreign body is identified. Head MRI 07/06/18 00:00 CONCLUSION: No evidence of acute intracranial pathology. No masses are identified. Chest X-Ray 07/06/18 01:20 CONCLUSION: No acute disease Head CT 07/06/18 01:20 CONCLUSION: Negative CT Head non contrast. . Physical Exam: GENERAL: NAD SKIN: Warm and dry. HEAD: Atraumatic. Normocephalic. EYES: Pupils equal and round. No scleral icterus. No injection or drainage. ENT: No nasal bleeding or discharge. Mucous membranes pink and moist. NECK: Trachea midline. Supple CARDIOVASCULAR: Regular rate and rhythm. RESPIRATORY: No accessory muscle use. Clear to auscultation. Breath sounds equal bilaterally. GASTROINTESTINAL: Abdomen soft, non-tender, nondistended. Hepatic and splenic margins not palpable. MUSCULOSKELETAL: Extremities without clubbing, cyanosis, or edema. No obvious deformities. NEUROLOGICAL: Awake and alert. No obvious cranial nerve deficits. Motor grossly within normal limits. Five out of 5 muscle strength in the arms and legs. Normal speech. PSYCHIATRIC: Appropriate mood and affect; insight and judgment normal. Assessment and Plan - Plan HIV dz, AIDS 2 yrs ago CD4 280 pt reportes being on on Genvoya; last VL undetectable; CD4 can t recall None of pts family members is aware of his HIV diagnosis H/o neurisyphilis sp treatment Presents with acute MS change and fever, menigitis/meningoencephalitis suspected - imaging studies negative, LP results P meningitis highly doubtfull Fever - resolved Drug toxicity suspected to be the cause of his MS change Cont Acyclovir until HSV PCR is back , cont Ceftriaxone for now, reduse dose to 2 gm daily dc Ampicillin ,Vancomycin further rec's per CSF findings fu CD4 restart Genvoya velma carreon pharmacist
[2018-07-07 19:41] VITALS: RESP 18
[2018-07-08] MEDS: Sod Chloride 0.9% Inj 1,000 ML IV.CONT SCH ×3 (03:46→14:21)
[2018-07-08] MEDS: Enoxaparin Inj 40 MG/0.4 ML Syringe SQ SCH (03:49)
[2018-07-08] MEDS: Chlorhexidine Gluconate 2% 1 Pack (2 Cloths) TOPICAL SCH (04:03)
[2018-07-08] MEDS ORDERED: Pharmacy Ordered Lab Info OTHER ONE (04:45)
[2018-07-08] MEDS: Insulin NovoLOG Aspart Correctional Sugar Inj SQ SCH ×2 (05:21→14:04)
[2018-07-08 06:11] LABS: Baso % (Auto) 0.1 % (0.0-2.0); Eos # (Auto) 0.1 th/mm3 (0.0-0.4); Eos % (Auto) 2.8 % (0.0-4.0); Hematocrit 36.4 % (39.0-51.0); Hemoglobin 12.3 gm/dL (13.0-17.0); Lymph # (Auto) 2.1 th/mm3 (1.0-4.8); Lymph % (Auto) 50.2 % (9.0-44.0); Mean Corpuscular HGB Conc 33.9 % (32.0-36.0); Mean Corpuscular Hemoglobin 31.3 pg (27.0-34.0); Mean Corpuscular Volume 92.4 fL (80.0-100.0); Mean Platelet Volume 8.1 fL (7.0-11.0); Mono # (Auto) 0.5 th/mm3 (0.0-0.9); Mono % (Auto) 11.2 % (0.0-8.0); Neut # (Auto) 1.5 th/mm3 (1.8-7.7); Neut % (Auto) 35.7 % (16.0-70.0); Platelet Count 171 th/mm3 (150-450); Red Blood Count 3.94 mil/mm3 (4.50-5.90); Red Cell Distribution Width 13.6 % (11.6-17.2); White Blood Count 4.1 th/mm3 (4.0-11.0)
[2018-07-08 06:21] LABS: Activated Partial Thrombo Time 24.3 sec (24.3-30.1); INR 1.1 Ratio; Prothrombin Time 11.2 sec (9.8-11.6)
[2018-07-08 06:33] LABS: Albumin 2.7 g/dL (3.4-5.0); Anion Gap 7 meq/L (5-15); Aspartate Aminotransferase 23 U/L (15-37); Blood Urea Nitrogen 8 mg/dL (7-18); Calcium 8.1 mg/dL (8.5-10.1); Carbon Dioxide 24.1 meq/L (21.0-32.0); Chloride 109 meq/L (98-107); Glomerular Filtration Rate Greater Than 89 mL/min (>89); Glucose,Random 236 mg/dL (74-106); Magnesium 2.1 mg/dL (1.5-2.5); Potassium 4.4 meq/L (3.5-5.1); Sodium 140 meq/L (136-145)
[2018-07-08 06:37] LABS: Alanine Aminotransferase 32 U/L (12-78); Alkaline Phosphatase 72 U/L (45-117); Phosphorus 2.6 mg/dL (2.5-4.9); Total Protein 6.2 g/dL (6.4-8.2)
[2018-07-08] MEDS: KCL 40 mEq/D5W/NaCl 0.9% Inj 1,000 ML IV.CONT SCH (06:44)
[2018-07-08] MEDS: Senna/Docusate Sodium 8.6/50 MG Tablet PO SCH (08:43)
[2018-07-08] MEDS: Famotidine PF Inj 20 MG/2 ML Vial IV.PUSH SCH (08:44)
[2018-07-08] MEDS ORDERED: GENVOYA PO SCH (09:00)
[2018-07-08] MEDS ORDERED: BY MOUTH DAILY PO SCH (09:00)
[2018-07-08 09:58] LABS: EBV DNA PCR CSF Source CSF; Epstein-Barr Virus DNA PCR CSF Negative (Negative)
--- NOTE | 2018-07-08 11:25 | P.PN ---
Subjective Interval history: Follow-up visit HIV, overdose on diphenhydramine. Reports he is doing well. States that he is tied up to his IVs unable to walk around. Denies any SI/HI. Denies pain and discomfort. Denies SOB/ dyspnea. Denies chest pain, palpitations, headaches, dizziness. Denies fevers, chills, n/v/d. Denies hematuria, dysuria. Physical Exam Vital signs: Vital Signs 07/07/18 12:00 07/07/18 16:00 07/07/18 17:14 Temperature 98.9 F 98.9 F 98.3 F Pulse Rate 87 85 97 H Respiratory Rate 20 20 18 Blood Pressure 171/74 H 155/62 H 151/88 H Pulse Oximetry 100 100 99 07/07/18 18:10 07/07/18 19:39 07/07/18 20:00 Temperature 98.5 F Pulse Rate 87 83 Respiratory Rate 6 L 18 Blood Pressure 148/83 H Pulse Oximetry 98 07/07/18 23:16 07/08/18 00:05 07/08/18 03:47 Temperature 97.8 F Pulse Rate 73 71 71 Respiratory Rate 18 Blood Pressure 149/75 H Pulse Oximetry 99 07/08/18 04:00 07/08/18 08:00 Temperature 97.8 F 97.6 F Pulse Rate 75 76 Respiratory Rate 18 18 Blood Pressure 153/76 H 142/85 H Pulse Oximetry 100 100 Intake & Output 07/07/18 07/08/18 07/08/18 18:59 06:59 18:59 Intake Total 2715 / 2715 1615 / 1615 Output Total 2100 / 2100 650 / 650 Balance 615 / 615 965 / 965 Weight 97.6 kg Intake: IV 1914 1615 / 1615 D5W/NS + KCL 40 mEq Inj 1,000 1000 / 1000 1000 / 1000 ML @ 100 mls/hr IV.CONT .Q10H [facility] Rx#:[id number] Ampicillin Inj 2,000 MG In NS 300 / 300 Inj 100 ML @ 400 mls/hr IV.SIG Q4H [facility] Rx#:[id number] Vancomycin Inj 1,500 MG In NS 515 / 515 515 / 515 Inj 500 ML @ 250 mls/hr IV.SIG Q12H [facility] Rx#:[id number] Rocephin Inj 2,000 MG In NS Inj 100 / 100 100 / 100 100 ML @ 200 mls/hr IV.SIG Q24H [facility] Rx#:[id number] Oral 800 / 800 Output: Urine 2100 / 2100 650 / 650 Narrative: GENERAL: This is a well-nourished, well-developed patient, in no apparent distress. SKIN: Warm and dry HEENT: Normocephalic. Pupils equal round and reactive. Nose without bleeding. Airway patent. NECK: Trachea midline. CARDIOVASCULAR: Regular rate and rhythm without murmurs, gallops, or rubs. RESPIRATORY: Clear to auscultation. Breath sounds equal bilaterally. No wheezes , rales, or rhonchi. GASTROINTESTINAL: Abdomen soft, non-tender, nondistended. Bowel Sounds normoactive x4. MUSCULOSKELETAL: Extremities without clubbing, cyanosis, or edema. NEUROLOGICAL: Awake and alert. No focal neuro deficit. Moves all extremities. Normal speech. - Urinary Catheter Management Straight Cath placed during this visit: yes Reason for continuing: Not indwelling catheter Insertion date: 07/06/18 Insertion time: 01:49 Results - Labs CBC & Chem 7: 07/08/18 05:15 07/08/18 05:15 Laboratory Results - last 24 hr 07/06/18 07/06/18 07/06/18 18:00 18:00 18:00 WBC RBC Hgb Hct MCV MCH MCHC RDW Plt Count MPV Neut % (Auto) Lymph % (Auto) [place] % (Auto) Eos % (Auto) Baso % (Auto) Neut # (Auto) Lymph # (Auto) [place] # (Auto) Eos # (Auto) Baso # (Auto) WBC Differential Differential Comment PT INR APTT Sodium Potassium Chloride Carbon Dioxide Anion Gap BUN Creatinine Estimated GFR POC Glucose Random Glucose Calcium Phosphorus Magnesium Total Bilirubin AST ALT Alkaline Phosphatase Total Protein Albumin CSF EBV DNA (PCR) Negative CSF Herpes I DNA (PCR) Negative CSF Herpes II DNA (PCR) Negative CMV Specimen Source Csf CMV DNA Quant PCR Negative EBV Source Csf 07/07/18 07/07/18 07/07/18 17:06 19:46 23:21 WBC RBC Hgb Hct MCV MCH MCHC RDW Plt Count MPV Neut % (Auto) Lymph % (Auto) [place] % (Auto) Eos % (Auto) Baso % (Auto) Neut # (Auto) Lymph # (Auto) [place] # (Auto) Eos # (Auto) Baso # (Auto) WBC Differential Differential Comment PT INR APTT Sodium Potassium Chloride Carbon Dioxide Anion Gap BUN Creatinine Estimated GFR POC Glucose 287 H 268 H 246 H Random Glucose Calcium Phosphorus Magnesium Total Bilirubin AST ALT Alkaline Phosphatase Total Protein Albumin CSF EBV DNA (PCR) CSF Herpes I DNA (PCR) CSF Herpes II DNA (PCR) CMV Specimen Source CMV DNA Quant PCR EBV Source 07/08/18 07/08/18 07/08/18 05:15 05:15 05:15 WBC 4.1 RBC 3.94 L Hgb 12.3 L Hct 36.4 L MCV 92.4 MCH 31.3 MCHC 33.9 RDW 13.6 Plt Count 171 MPV 8.1 Neut % (Auto) 35.7 Lymph % (Auto) 50.2 H [place] % (Auto) 11.2 H Eos % (Auto) 2.8 Baso % (Auto) 0.1 Neut # (Auto) 1.5 L Lymph # (Auto) 2.1 [place] # (Auto) 0.5 Eos # (Auto) 0.1 Baso # (Auto) 0.0 WBC Differential . Differential Comment Auto diff final PT 11.2 INR 1.1 APTT 24.3 Sodium 140 Potassium 4.4 Chloride 109 H Carbon Dioxide 24.1 Anion Gap 7 BUN 8 Creatinine 1.07 Estimated GFR Greater than 89 POC Glucose Random Glucose 236 H Calcium 8.1 L Phosphorus 2.6 Magnesium 2.1 Total Bilirubin 0.5 AST 23 ALT 32 Alkaline Phosphatase 72 Total Protein 6.2 L Albumin 2.7 L CSF EBV DNA (PCR) CSF Herpes I DNA (PCR) CSF Herpes II DNA (PCR) CMV Specimen Source CMV DNA Quant PCR EBV Source Microbiology 07/06/18 09:04 Blood - Peripheral Aerobic Blood Culture - Preliminary No growth in 2 days 07/06/18 09:04 Blood - Peripheral Anaerobic Blood Culture - Preliminary No growth in 2 days 07/06/18 09:00 Blood - Peripheral Aerobic Blood Culture - Preliminary No growth in 2 days 07/06/18 09:00 Blood - Peripheral Anaerobic Blood Culture - Preliminary No growth in 2 days 07/06/18 01:50 Random Urine Urine Culture - Final No growth in 48 hours 07/06/18 18:00 Cerebral Spinal Fluid - Lumbar Puncture Acid Fast Bacilli Smear - Final No acid fast bacilli seen 07/06/18 18:00 Lumbar Puncture Gram Stain - Final 07/06/18 18:00 Lumbar Puncture CSF Culture - Preliminary No growth in 48 hours Assessment and Plan - Plan 22-year-old gentleman with history of type 1 diabetes, HIV, neurosyphilis treated here 2 years ago was brought in by his classmates Toxic encephalopathy secondary to diphenhydramine overdose -CT head negative -EEG severe slowing -MRI negative -LP not consistent with infection, ID following DCd ABx ampicillin, vancomycin. Recommends to continue acyclovir until HSV PCR is back, continue with ceftriaxone 2 g daily -psych consult for overdose. Will plan to discharge to medical psych unit for further evaluation. -back to neurologic baseline. Hypertension -Labetalol and Vasotec as needed to keep SBP less than 180 -On Clonidine every 8 hours, needs to be weaned off -Restart lisinopril 20 mg from home while weaning off. Place hold parameters for clonidine. Diabetes mellitus, type I -Insulin sliding scale History of HIV -patient states he is taking his HAART therapy, up to today. DVT GI prophylaxis Lovenox. Pepcid Code Status: Full code Discussed Condition With: Patient, nurse Discharge Planning: DC to medical psychiatry unit
--- NOTE | 2018-07-08 13:00 | P.DS ---
Date of admission: 07/06/18 04:59 Primary care physician: No Primary Care Physician Attending physician on discharge: Priyanka Adames Anticipated date of discharge: 07/08/18 Brief History from admission: 22-year-old gentleman with history of type 1 diabetes, HIV, neurosyphilis treated here 2 years ago was brought in by his classmates. The patient is altered, does not follow commands, keeps looking around, moves all 4 extremities. His diabetes is under control with negative ketones and normal pH , negative beta butyric acid and normal anion gap. Due to altered mental status he required 4 point restraints in the emergency department to be applied. He was also found to be hypertensive. His initial drug screen urine toxicology test was negative. No information is available from the patient since he is nonverbal and somewhat catatonic. Patient update on day of discharge: Follow-up visit HIV, overdose on diphenhydramine. Reports he is doing well. States that he is tied up to his IVs unable to walk around. Denies any SI/HI. Denies pain and discomfort. Denies SOB/ dyspnea. Denies chest pain, palpitations, headaches, dizziness. Denies fevers, chills, n/v/d. Denies hematuria, dysuria. DS: Diagnosis - Discharge Diagnosis (1) Overdose of drug/medicinal substance Status: Acute (2) Toxic encephalopathy Status: Acute (3) Hypertension Status: Acute DS: Summary Hospital Course: Patient is a 22-year-old black male with history of type 1 diabetes, HIV, neurosyphilis treated 2 years ago but it has been brought in by his classmates for altered mental status. His diabetes is under control with negative ketones and normal pH, negative beta butyric acid and normal anion gap. Patient found to have toxic colopathy secondary to diphenhydramine overdose. His initial drug screen toxicology was negative. States he took 8-9 of pills called "Jet Sleep." CT of the head was negative. His EEG with severe slowing. His MRI was also negative. LP was done but is not consistent with any infection. No growth to date on cultures. He was started on multiple antibiotics but no tapered to continue to have acyclovir IV, and also ceftriaxone IV until HSV is back as per recommendation of infectious disease. Patient was hypertensive on admission and has admitted to hypertension even prior to hospitalization but not on any medication. He was started on labetalol and Vasotec as needed. And was started on clonidine 0.3 mg every 8 hours, will wean off. He takes lisinopril 20mgas home med. He will continue the regimen of clonidine, and hydralazine as needed. Will start his lisinopril. Patient is back on his neurologic baseline. Denies any suicidal ideation, homicidal ideation. He will be transferred to inpatient medical psychiatry unit for further evaluation as per psychiatry recommendation. Insulin home regimen Levemir 40 units at night NovoLog 70/30 30 units in a.m. - Time Spent with Patient Total time spent providing and/or coordinating discharge services: Less than 30 minutes - Quality: VTE Deep Vein Thrombosis/Pulmonary Embolism Present on Admission: No Exam Vital signs: Vital Signs 07/07/18 16:00 07/07/18 17:14 07/07/18 18:10 Temperature 98.9 F 98.3 F Pulse Rate 85 97 H Respiratory Rate 20 18 6 L Blood Pressure 155/62 H 151/88 H Pulse Oximetry 100 99 07/07/18 19:39 07/07/18 20:00 07/07/18 23:16 Temperature 98.5 F 97.8 F Pulse Rate 87 83 73 Respiratory Rate 18 18 Blood Pressure 148/83 H 149/75 H Pulse Oximetry 98 99 07/08/18 00:05 07/08/18 03:47 07/08/18 04:00 Temperature 97.8 F Pulse Rate 71 71 75 Respiratory Rate 18 Blood Pressure 153/76 H Pulse Oximetry 100 07/08/18 08:00 Temperature 97.6 F Pulse Rate 76 Respiratory Rate 18 Blood Pressure 142/85 H Pulse Oximetry 100 Intake & Output 07/07/18 07/08/18 07/08/18 18:59 06:59 18:59 Intake Total 2715 / 2715 1615 / 1615 Output Total 2100 / 2100 650 / 650 Balance 615 / 615 965 / 965 Weight 97.6 kg Intake: IV 1915 / 1915 1615 / 1615 D5W/NS + KCL 40 mEq Inj 1,000 1000 / 1000 1000 / 1000 ML @ 100 mls/hr IV.CONT .Q10H [facility] Rx#:[id number] Ampicillin Inj 2,000 MG In NS 300 / 300 Inj 100 ML @ 400 mls/hr IV.SIG Q4H [facility] Rx#:[id number] Vancomycin Inj 1,500 MG In NS 515 / 515 515 / 515 Inj 500 ML @ 250 mls/hr IV.SIG Q12H [facility] Rx#:[id number] Rocephin Inj 2,000 MG In NS Inj 100 / 100 100 / 100 100 ML @ 200 mls/hr IV.SIG Q24H [facility] Rx#:[id number] Oral 800 / 800 Output: Urine 2100 / 2100 650 / 650 Other: Date of Last Bowel Movement 07/04/18 Narrative: GENERAL: This is a well-nourished, well-developed patient, in no apparent distress. SKIN: Warm and dry HEENT: Normocephalic. Pupils equal round and reactive. Nose without bleeding. Airway patent. NECK: Trachea midline. CARDIOVASCULAR: Regular rate and rhythm without murmurs, gallops, or rubs. RESPIRATORY: Clear to auscultation. Breath sounds equal bilaterally. No wheezes , rales, or rhonchi. GASTROINTESTINAL: Abdomen soft, non-tender, nondistended. Bowel Sounds normoactive x4. MUSCULOSKELETAL: Extremities without clubbing, cyanosis, or edema. NEUROLOGICAL: Awake and alert. No focal neuro deficit. Moves all extremities. Normal speech. Results Procedures completed during hospitalization: None Labs on day of discharge: Labs from last 24 hours 07/08/18 07/08/18 07/08/18 05:15 05:15 05:15 WBC 4.1 RBC 3.94 L Hgb 12.3 L Hct 36.4 L MCV 92.4 MCH 31.3 MCHC 33.9 RDW 13.6 Plt Count 171 MPV 8.1 Neut % (Auto) 35.7 Lymph % (Auto) 50.2 H [place] % (Auto) 11.2 H Eos % (Auto) 2.8 Baso % (Auto) 0.1 Neut # (Auto) 1.5 L Lymph # (Auto) 2.1 [place] # (Auto) 0.5 Eos # (Auto) 0.1 Baso # (Auto) 0.0 WBC Differential . Differential Comment Auto diff final PT 11.2 INR 1.1 APTT 24.3 Sodium 140 Potassium 4.4 Chloride 109 H Carbon Dioxide 24.1 Anion Gap 7 BUN 8 Creatinine 1.07 Estimated GFR Greater than 89 POC Glucose Random Glucose 236 H Calcium 8.1 L Phosphorus 2.6 Magnesium 2.1 Total Bilirubin 0.5 AST 23 ALT 32 Alkaline Phosphatase 72 Total Protein 6.2 L Albumin 2.7 L CSF EBV DNA (PCR) CSF Herpes I DNA (PCR) CSF Herpes II DNA (PCR) CMV Specimen Source CMV DNA Quant PCR EBV Source 07/07/18 07/07/18 07/07/18 23:21 19:46 17:06 WBC RBC Hgb Hct MCV MCH MCHC RDW Plt Count MPV Neut % (Auto) Lymph % (Auto) [place] % (Auto) Eos % (Auto) Baso % (Auto) Neut # (Auto) Lymph # (Auto) [place] # (Auto) Eos # (Auto) Baso # (Auto) WBC Differential Differential Comment PT INR APTT Sodium Potassium Chloride Carbon Dioxide Anion Gap BUN Creatinine Estimated GFR POC Glucose 246 H 268 H 287 H Random Glucose Calcium Phosphorus Magnesium Total Bilirubin AST ALT Alkaline Phosphatase Total Protein Albumin CSF EBV DNA (PCR) CSF Herpes I DNA (PCR) CSF Herpes II DNA (PCR) CMV Specimen Source CMV DNA Quant PCR EBV Source 07/06/18 07/06/18 07/06/18 18:00 18:00 18:00 WBC RBC Hgb Hct MCV MCH MCHC RDW Plt Count MPV Neut % (Auto) Lymph % (Auto) [place] % (Auto) Eos % (Auto) Baso % (Auto) Neut # (Auto) Lymph # (Auto) [place] # (Auto) Eos # (Auto) Baso # (Auto) WBC Differential Differential Comment PT INR APTT Sodium Potassium Chloride Carbon Dioxide Anion Gap BUN Creatinine Estimated GFR POC Glucose Random Glucose Calcium Phosphorus Magnesium Total Bilirubin AST ALT Alkaline Phosphatase Total Protein Albumin CSF EBV DNA (PCR) Negative CSF Herpes I DNA (PCR) Negative CSF Herpes II DNA (PCR) Negative CMV Specimen Source Csf CMV DNA Quant PCR Negative EBV Source Csf Preliminary micro results at discharge 07/06/18 09:04 Aerobic Blood Culture - Preliminary Blood - Peripheral No growth in 2 days Anaerobic Blood Culture - Preliminary No growth in 2 days 07/06/18 09:00 Aerobic Blood Culture - Preliminary Blood - Peripheral No growth in 2 days Anaerobic Blood Culture - Preliminary No growth in 2 days 07/06/18 18:00 CSF Culture - Preliminary Lumbar Puncture No growth in 48 hours - Impressions ITS Impressions Abdomen X-Ray 07/06/18 00:00 CONCLUSION: No evidence of obstruction. No foreign body is identified. Head MRI 07/06/18 00:00 CONCLUSION: No evidence of acute intracranial pathology. No masses are identified. Chest X-Ray 07/06/18 01:20 CONCLUSION: No acute disease Head CT 07/06/18 01:20 CONCLUSION: Negative CT Head non contrast. . Discharge Plan - Discharge Disposition Patient Disposition: 65 [facility] To [facility] Facility - Discharge Condition Condition: Stable - Discharge Order Discharge Orders: Discharge Order (Routine); Ordered 07/08/18 Ordered By: Shai Cuellar - Physicians Team Primary Care Provider: Primary Care Nikia Fenton Attending Provider: Priyanka Adames Other Providers: Robyn Damon MD ; Priyanka Adames MD
[2018-07-08 13:15] VITALS: O2SAT 99
[2018-07-08 16:24] VITALS: BP 157/92; PULSE 77; TEMP 98.2
[2018-07-08 19:24] LABS: Enterovirus (PCR)Source CSF; Enterovirus RNA Qual (PCR) Negative (Negative)
[2018-07-09] MEDS ORDERED: Lisinopril 20 MG Tablet PO SCH (09:00)
[2018-07-09 23:53] LABS: Varicella-Zoster V DNA PCR <500 (<500 copies)
== END 2018-07-08 16:44 ==
LOC: NEPC 01:01 → NEDA 04:59 → HIMC 05:45 → N04 07-07 16:29
PROVIDERS: ADMIT Hospitalist; ATTEND Hospitalist

== ENCOUNTER 2018-07-08 15:32 | Inpatient (IN) ==
[2018-07-08] MEDS ORDERED: Bisacodyl 10 MG Supp RECTAL PRN (19:33)
[2018-07-08] MEDS ORDERED: Aluminum/Magnesium/Simethacone Susp 30 ML UDC PO PRN (19:33)
[2018-07-08] MEDS ORDERED: INSULIN LISPRO PROTAMIN LISPRO SQ SCH (19:45)
[2018-07-08] MEDS: Senna/Docusate Sodium 8.6/50 MG Tablet PO SCH (21:29)
[2018-07-09] MEDS ORDERED: Dextrose 50% in Water 50 ML Vial IV.PUSH PRN (00:53)
[2018-07-09] MEDS: Insulin NovoLOG Aspart Correctional Sugar Inj SQ SCH ×5 (01:25→20:18)
[2018-07-09] MEDS: Insulin Detemir Inj 1,000 UNIT/10 ML Vial SQ SCH ×2 (01:26→20:59)
[2018-07-09 07:18] LABS: Anion Gap 8 meq/L (5-15); Blood Urea Nitrogen 11 mg/dL (7-18); Calcium 8.9 mg/dL (8.5-10.1); Carbon Dioxide 27.8 meq/L (21.0-32.0); Chloride 103 meq/L (98-107); Chol/HDL Ratio 4.92 Ratio; Cholesterol 191 mg/dL (120-200); Glomerular Filtration Rate Greater Than 89 mL/min (>89); Glucose,Random 249 mg/dL (74-106); HDL Cholesterol 38.8 mg/dL (40.0-60.0); LDL Cholesterol,Calculated 131 mg/dL (0-99); Potassium 4.4 meq/L (3.5-5.1); Sodium 139 meq/L (136-145); Triglycerides 104 mg/dL (42-150)
[2018-07-09] MEDS: Senna/Docusate Sodium 8.6/50 MG Tablet PO SCH ×2 (08:15→20:18)
--- NOTE | 2018-07-09 10:42 | P.HPPSY ---
Provisional Diagnosis Admission Date: July 08, 2018 16:49 [place] I.: Major depressive disorder Competence Certification of Person's Competence To Provide Express and Informed Consent I have personally examined Althea Vizcarra, a person being served at [facility] on, July 09, 2018 1042. Express and informed consent means consent voluntarily given in writing, by a competent person, after sufficient explanation and disclosure of the subject matter involved to enable the person to make a knowing and willful decision without any element of force, fraud, deceit, duress, or other form of constraint or coercion. This person is 18 years of age or older, is not now known to be incompetent to consent to treatment with a guardian advocate, and does not have a health care surrogate or proxy currently making medical treatment decisions. I have found this person to be one of the following: [xxx] Competent to provide express and informed consent, as defined above, for voluntary admission to this facility and is competent to provide express and informed consent for treatment. He/she has the consistent capacity to make well reasoned, willful, and knowing decisions concerning his or her medical or mental health treatment. The person fully and consistently understands the purpose of the admission for examination/placement and is fully capable of personally exercising all rights assured [place] [] Incompetent to provide express and informed consent to voluntary admission, and this is incompetent to provide express and informed consent to treatment. The person must be transferred to involuntary status and a petition for a guardian advocate filed with the Circuit Court. [] Refusing to provide express and informed consent to voluntary admission but is competent to provide express and informed consent for treatment. The person must be discharged or transferred to involuntary status. Form shall be completed within 24 hours of a person's arrival at the receiving facility and filed in the clinical record of each person: 1. Admitted on a voluntary basis 2. Permitted to provide express and informed consent to his/her own treatment 3. Allowed to transfer from involuntary to voluntary status 4. Prior to permitting a person to consent to his or her own treatment after having been previously found incompetent to consent to treatment. 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 Patient was seen by psychiatry consult by automobile service writer prior to his transfer while patient was on the medical floor for stabilization as noted below : psychiatry was consulted for evaluation. As per chart, patient required four point restraints in the ED, received lorazepam as ETO x 1, had extensive medical workup with no acute findings on imaging, EEG or lumbar puncture in the context of history of HIV and possible related infections which neurology and infectious disease have been involved in his care. Patient was found lying on hospital bed with friend at bedside but interviewed alone. Patient noted to be alert and oriented x 3, states not being sure what happened that led to his admission. He recalls having taken his insulin the night before, felt nauseous and does remember after that but last being at his dorm. As per chart patient was found in school with altered mental status. He states that for the past several weeks he has been having difficulty with sleep, appetite, and energy, no change in concentration, mood feeling "a little depressed" along with decreased pleasure in hobbies, and feelings of guilt "everything that has happened is my fault'. Patient initially denied having had any suicidal ideations but later admitted to have likely having overdosed on over the counter diphenhydramine in a suicide attempt. He mentions that several weeks ago a 9 month relationship had ended which was unexpected and feeling guilty of not graduating on time. Denies rest of psychiaric ROS. Denies any perceptual disturbances or delusions. Currently continues to be very dysphoric and require inpatient psychiatric stabilization. Family psychiatric history: denies Past psychiatric history: denies previous diagnosis, psychiatric admissions, suicide attempts or self injurious behavior., no prior mental health services, no previous medication trials aside from zolpidem for insomnia. Substance use history: EToH use 1-2 times per week, THC "not too often", denies use of any other drugs. Past medical history: DM, HIV, HTN Allergies: piperacillin, tazobactam, ketorolac Social history: single, no children, domiciled with roommate, current in college , no service, no access to firearms. Collateral contact: (Milvia Scott - mother [phone]) Discussion nursing staff reported the patient with no behavioral issues has been calm, compliant with treatment. Patient was found lying hospital bed noted B, cooperative. Patient states that he is feeling physically better stating his sleeping has improved as well as his appetite, reports his mood has been "better" feeling less depressed denying suicide ideations at this time. Patient reports adequate energy concentration. Patient states that he was feeling very overwhelmed with work and school the day of the overdose and states wanting to feel better so that he can focus on his career. Patient denies any perceptional services or delusions at this time, rest of psychiatric review of systems negative. Discussion of starting bupropion was reviewed with patient as well as risks, benefits and alternatives, patient agrees. Patient agrees to voluntary admission. - Inpatient Certification I certify that the inpatient services were ordered in accordance with Medicare regulations governing the order. This includes certification that hospital inpatient services are reasonable and necessary and in the case of services not specified as inpatient-only under 42 CFR 419.22(n), that they are appropriately provided as inpatient services in accordance to with the 2-midnight benchmark under 43 CFR 412.3(e) I certify that inpatient psychiatric hospital services are medically necessary. Evaluation and treatment and/or diagnostic testing are expected to improve the patient's condition. The patient needs on a daily basis, active treatment furnished directly by or requiring the supervision of inpatient psychiatric facility personnel. Estimated Total Length of Stay (Days): 7 Plans for Post Hospital Care: Home Review of Systems All other systems reviewed negative except as stated in HPI [facility] - History History Provided By: Patient, Medical Record - Medical History Medical History: Medical History (Last Updated 07/06/18 @ 18:41 by Robyn Damon MD) HIV (human immunodeficiency virus infection) Neurosyphilis Type 1 diabetes - Surgical History Surgical History: Surgical History (Last Reviewed 07/06/18 @ 18:40 by Robyn Damon MD) No history of previous surgery - Family History Family History: Family History (Last Updated 07/06/18 @ 18:40 by Robyn Damon MD) Other No pertinent family history - Tobacco History Second Hand Smoke Exposure: No Tobacco Use In Past 30 Days: No Smoking Status: Never smoker - Alcohol History How Often Do You Have a Drink Containing Alcohol: Monthly or less - Substance Use History Substance History: No History of Abuse - Travel History Recent Travel in the [place] Within the Last 8 Weeks: No Recent Travel Out of the Country Within the Last 8 Weeks: No Quality Measures - Psychiatric History Psychological trauma history: Denies Violence risk to others in the last 6 months: Low Violence risk to self in the last 6 months: Elevated due to recent suicide attempt - Substance Abuse History Drug or alcohol use in the past 12 months: See HPI - Patient Strengths Patient's strengths (minimum of 2): Verbal and communicative Medications and Allergies Active Medications: Active Medications Al Hydrox/Mg Hydrox/Simethicone (Mag-Al Plus Susp Liq) 30 ml PO Q6H PRN PRN Reason: DYSPEPSIA Al Hydroxide/Mg Hydroxide (Milk Of Magnesia Liq) 30 ml PO Q12H PRN PRN Reason: Mild Constipation Bisacodyl (Dulcolax Supp) 10 mg RECTAL DAILY PRN PRN Reason: SEVERE CONSITIPATION Bupropion HCl (Wellbutrin Sr) 100 mg PO BID [facility] Dextrose (D50w Vial) 50 ml IV.PUSH UNSCH PRN PRN Reason: PER HYPOGLYCEMIA PROTOCOL Diphenhydramine HCl (Benadryl) 50 mg PO HS PRN PRN Reason: INSOMNIA Glucagon (Glucagon Inj) 1 mg OTHER PRN PRN PRN Reason: for Hypoglycemia Protocol Insulin Aspart (Novolog Insulin Correctional Sugar Inj) 0 unit SQ [facility]; Protocol Last Admin: 07/09/18 08:37 Dose: 3 unit Insulin Detemir (Levemir Inj) 40 unit SQ HS [facility] Last Admin: 07/09/18 01:26 Dose: 40 unit Lactulose (Lactulose Liq) 30 ml PO DAILY PRN PRN Reason: SEVERE CONSITIPATION Lorazepam (Ativan) 1 mg PO Q6H PRN PRN Reason: ANXIETY Senna/Docusate Sodium (Eva-Colace) 1 tab PO BID [facility] Last Admin: 07/09/18 08:15 Dose: Not Given Sennosides (Senokot) 17.2 mg PO Q12H PRN PRN Reason: Moderate Constipation Allergies Allergy/AdvReac Type Severity Reaction Status Date / Time piperacillin Allergy Severe Hives Unverified 12/22/17 23:04 tazobactam Allergy Severe Hives Unverified 12/22/17 23:04 ketorolac Allergy Unknown Hives Unverified 12/22/17 23:04 Home Medications Medication Instructions Recorded Confirmed Type insulin lispro protamin-lispro 1 sliding scale dose SUB-Q UD 07/06/18 07/06/18 History [Humalog Mix 50-50 Insuln U-100] Results - Labs CBC & Chem 7: 07/09/18 06:15 Labs: Laboratory Results - last 24 hr 07/09/18 07/09/18 07/09/18 01:14 06:15 08:08 Sodium 139 Potassium 4.4 Chloride 103 Carbon Dioxide 27.8 Anion Gap 8 BUN 11 Creatinine 1.20 Estimated GFR Greater than 89 POC Glucose 339 H 243 H Random Glucose 249 H Calcium 8.9 D Triglycerides 104 Cholesterol 191 LDL Cholesterol, Calc 131 H HDL Cholesterol 38.8 L Cholesterol/HDL Ratio 4.92 Exam Vital signs: Vital Signs 07/08/18 17:10 Temperature 97.9 F Pulse Rate 83 Respiratory Rate 16 Blood Pressure 120/69 Pulse Oximetry 97 Intake & Output 07/08/18 07/09/18 07/09/18 18:59 06:59 18:59 Intake Total 840 / 840 360 / 360 Balance 840 / 840 360 / 360 Weight 215 kg Intake: Oral 840 / 840 360 / 360 Other: # Voids 1 Weight On Admission 215 kg - Constitutional no acute distress, cooperative Mental Status Examination Appearance: Appropriate Consciousness: Alert Orientation: x4 Motor Activity: Normal gait Speech: Unremarkable Language: Adequate Fund of Knowledge: Inadequate Attention and Concentration: Adequate Memory: Unremarkable Mood: Good Affect: Sad Thought Process & Associations: Intact, Linear Thought Content: Appropriate Hallucination Type: None Delusion Type: None Suicidal Ideation: Yes (Denies at this time) Suicidal Plan: No Suicidal Intention: No Homicidal Ideation: No Homicidal Plan: No Homicidal Intention: No Insight: Fair Judgment: Impulsive Assessment and Plan - Assessment (1) Major depressive disorder Code(s): F32.9 - Major depressive disorder, single episode, unspecified Status : Acute - Plan Plan: Estimated LOS: [] days Patient is a 22-year-old -Surinamese man, 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 Patient will be admitted under voluntary admission at this time, has capacity to consent for treatment. We will start bupropion SR 100 mg p.o. twice daily with upper titration for depression. We will continue rest of medications for chronic medical illnesses. We will continue to monitor mood and behavior. Collateral formation pending. Discharge planning in progress. Justification for Continued Inpatient Stay: At risk of further decompensation a lower level of care.
[2018-07-09] MEDS: buPROPion 100 MG ER 12 HR Tablet PO SCH ×2 (12:15→20:18)
[2018-07-09 15:38] LABS: Hemoglobin A1c 8.4 % (4.3-6.0)
[2018-07-09] MEDS: BY MOUTH DAILY PO SCH (16:05)
[2018-07-09] MEDS: GENVOYA PO SCH (16:05)
[2018-07-09] MEDS ORDERED: Melatonin 5 MG Tablet PO ONE (20:45)
[2018-07-09] MEDS ORDERED: Enoxaparin Inj 40 MG/0.4 ML Syringe SQ SCH (21:00)
[2018-07-10] MEDS: Senna/Docusate Sodium 8.6/50 MG Tablet PO SCH ×2 (08:36→20:37)
[2018-07-10] MEDS: Insulin NovoLOG Aspart Correctional Sugar Inj SQ SCH ×4 (08:36→20:59)
[2018-07-10] MEDS: BY MOUTH DAILY PO SCH (09:21)
[2018-07-10] MEDS: GENVOYA PO SCH (09:21)
[2018-07-10] MEDS: buPROPion 100 MG ER 12 HR Tablet PO SCH ×2 (09:21→21:00)
[2018-07-10] MEDS: Insulin Detemir Inj 1,000 UNIT/10 ML Vial SQ SCH (20:59)
--- NOTE | 2018-07-10 22:01 | P.PNPSY ---
Subjective Remarks: Patient seen for follow-up, chart reviewed. Discussion nursing staff reported the patient had refuse medications yesterday to be quite seclusive. Patient was found lying hospital bed noted B, cooperative. Patient states that his mood has been "okay" reports feeling less depressed, denying suicide ideations today. Patient was visited by his patient denies any physical complaints at this time. From yesterday which she states went well. Patient was encouraged to participate in groups and activities which she agreed. Patient denies any perceptional disturbances or delusions. Review of Systems All other systems reviewed negative except as stated in HPI Mental Status Examination Appearance: Appropriate Consciousness: Alert Orientation: x4 Motor Activity: Normal gait Speech: Unremarkable Language: Adequate Fund of Knowledge: Inadequate Attention and Concentration: Adequate Memory: Unremarkable Mood: Good Affect: Sad Thought Process & Associations: Intact, Linear Thought Content: Appropriate Hallucination Type: None Delusion Type: None Suicidal Ideation: Yes (Denies at this time) Suicidal Plan: No Suicidal Intention: No Homicidal Ideation: No Homicidal Plan: No Homicidal Intention: No Insight: Fair Judgment: Impulsive Assessment and Plan - Assessment (1) Major depressive disorder Code(s): F32.9 - Major depressive disorder, single episode, unspecified Status : Acute - Plan Plan: Reporting less depression, denies any suicide ideation at this time. Patient continues to be somewhat seclusive but was encouraged to participate in group which she agreed. We will continue current treatment. Continue to monitor mood and behavior. Discharge planning a progress. Justification for Continued Inpatient Stay: At risk for further decompensation if at lower level of care.
[2018-07-11] MEDS: Senna/Docusate Sodium 8.6/50 MG Tablet PO SCH ×2 (08:42→21:13)
[2018-07-11] MEDS: buPROPion 100 MG ER 12 HR Tablet PO SCH ×2 (08:42→21:12)
[2018-07-11] MEDS: BY MOUTH DAILY PO SCH (08:44)
[2018-07-11] MEDS: GENVOYA PO SCH (08:44)
[2018-07-11] MEDS: Insulin NovoLOG Aspart Correctional Sugar Inj SQ SCH ×3 (11:25→21:12)
--- NOTE | 2018-07-11 13:05 | P.PNPSY ---
Subjective Remarks: On my psychiatric evaluation today I find a patient in the recreational area of the unit, the patient is calm, cooperative and pleasant. The patient reports improvement in his mood, also reports improvement in his sleep, appetite and energy. Patient reports that he has been reflecting in his recent action and he feels that he did a mistake. Patient says that he does not want to , he want to do better, continue his studies. At this moment the patient denies suicidal and homicidal ideation, he denies visual and auditory hallucinations. He has been compliant medications, no significant side effects Mental Status Examination Appearance: Appropriate Consciousness: Alert Orientation: x4 Motor Activity: Normal gait Speech: Unremarkable Language: Adequate Fund of Knowledge: Inadequate Attention and Concentration: Adequate Memory: Unremarkable Mood: Good Affect: Sad Thought Process & Associations: Intact, Linear Thought Content: Appropriate Hallucination Type: None Delusion Type: None Suicidal Ideation: Yes (Denies at this time) Suicidal Plan: No Suicidal Intention: No Homicidal Ideation: No Homicidal Plan: No Homicidal Intention: No Insight: Fair Judgment: Impulsive Assessment and Plan - Assessment (1) Major depressive disorder Code(s): F32.9 - Major depressive disorder, single episode, unspecified Status : Acute - Plan Plan: Continue current psychotropic regimen. Extensive support, motivation and psychoeducation provided. Justification for Continued Inpatient Stay: Continue psychiatric admission for stabilization and safety.
[2018-07-11] MEDS ORDERED: Melatonin 5 MG Tablet PO ONE (20:45)
[2018-07-11] MEDS: Insulin Detemir Inj 1,000 UNIT/10 ML Vial SQ SCH (21:12)
[2018-07-12] MEDS: LORazepam 1 MG Tablet PO PRN ×2 (02:03→20:42)
[2018-07-12] MEDS: BY MOUTH DAILY PO SCH (08:23)
[2018-07-12] MEDS: buPROPion 100 MG ER 12 HR Tablet PO SCH ×2 (08:23→20:42)
[2018-07-12] MEDS: Senna/Docusate Sodium 8.6/50 MG Tablet PO SCH ×2 (08:23→20:41)
[2018-07-12] MEDS: GENVOYA PO SCH (08:23)
[2018-07-12] MEDS: Insulin NovoLOG Aspart Correctional Sugar Inj SQ SCH ×4 (14:23→20:42)
--- NOTE | 2018-07-12 16:49 | P.PNPSY ---
Subjective Remarks: Pt seen and discussed with staff. He was admitted for accidental overdose. He has been pleasant and compliant with care. He denies SI/HI today. He states that he was having a lot of anxiety prior to overdose due to feeling overwhelmed by psychosocial stressors. He would like to start therapy after discharge. He reports that he does have a support network and he realizes the need to utilize it. He is tolerating medications without side effects. Mental Status Examination Appearance: Appropriate Consciousness: Alert Orientation: x4 Motor Activity: Normal gait Speech: Unremarkable Language: Adequate Fund of Knowledge: Inadequate Attention and Concentration: Adequate Memory: Unremarkable Mood: Appropriate Affect: Appropriate Thought Process & Associations: Intact, Linear Thought Content: Appropriate Hallucination Type: None Delusion Type: None Suicidal Ideation: Yes (Denies at this time) Suicidal Plan: No Suicidal Intention: No Homicidal Ideation: No Homicidal Plan: No Homicidal Intention: No Insight: Fair Judgment: Impulsive Assessment and Plan - Assessment (1) Major depressive disorder Code(s): F32.9 - Major depressive disorder, single episode, unspecified Status : Acute - Plan Plan: Pt improving. Continue current tx plan. Justification for Continued Inpatient Stay: monitoring for safety
[2018-07-12] MEDS: Insulin Detemir Inj 1,000 UNIT/10 ML Vial SQ SCH (20:42)
[2018-07-13 05:41] VITALS: BP 121/59; PULSE 92; RESP 17; TEMP 98.8; O2SAT 100
[2018-07-13] MEDS: Insulin NovoLOG Aspart Correctional Sugar Inj SQ SCH ×2 (08:39→11:34)
[2018-07-13] MEDS: GENVOYA PO SCH (08:40)
[2018-07-13] MEDS: BY MOUTH DAILY PO SCH (08:40)
[2018-07-13] MEDS: buPROPion 100 MG ER 12 HR Tablet PO SCH (08:40)
[2018-07-13] MEDS: Senna/Docusate Sodium 8.6/50 MG Tablet PO SCH (08:40)
--- NOTE | 2018-07-13 09:12 | P.TTN ---
- Patient Problems Problems: 1. Discharge planning 2. Medication compliance 3. Knowledge deficit 4. Lack of coping skills - Progress Toward Goals Provider Present: Dr. Carlos Enrique Wood Provider Input: Pt to be discharged today, back to [employer] to resume schooling. Psychiatric Counselors Present: Sara Kearns LCSW, Lou Lan, [facility] Psychiatric Therapist Input: Counselor in agreement with MD decision Group Spec/RT/OT/LLANES Present: MARIO ALBERTO Danielson, John Cash, OT Group Spec/RT/OT/LLANES Input: Pt has been appropriate, attending groups . - Documentation Scribe: John Cash, MS, OTR Teaching Recipient: Patient
--- NOTE | 2018-07-13 23:09 | P.DSPSY ---
Psychiatry Discharge Summary Inpatient Psychiatric care?: Yes Advance Directives: No Reason for Unknown:: Other Other Reason for Unknown: doesn't have one Mental Health Advance Directive: No Health Care Proxy: No - Admission Admission Date: July 08, 2018 16:49 - Admission Diagnosis (1) Major depressive disorder Code(s): F32.9 - Major depressive disorder, single episode, unspecified Brief History: Patient is a 22 y/o man, single, currently in [employer], domiciled with roommate, with no formal past psychiatric history, denies prior psychiatric diagnosis, hospitalizations suicide attempts of self injurious behavior with past medical history of HIV, HTN, DM, who was brought in by EMS after being found in school slumped over, staring, paranoid, and admitted to the medical service for altered mental status and admitted to feeling depressed and suspected diphenhydramine overdose which he admitted to an intentional overdose and was transferred to the inpatient psychiatry for further evaluation and management. Patient was seen by psychiatry consult by teletypewriter operator prior to his transfer while patient was on the medical floor for stabilization as noted below : psychiatry was consulted for evaluation. As per chart, patient required four point restraints in the ED, received lorazepam as ETO x 1, had extensive medical workup with no acute findings on imaging, EEG or lumbar puncture in the context of history of HIV and possible related infections which neurology and infectious disease have been involved in his care. Patient was found lying on hospital bed with friend at bedside but interviewed alone. Patient noted to be alert and oriented x 3, states not being sure what happened that led to his admission. He recalls having taken his insulin the night before, felt nauseous and does remember after that but last being at his dorm. As per chart patient was found in school with altered mental status. He states that for the past several weeks he has been having difficulty with sleep, appetite, and energy, no change in concentration, mood feeling "a little depressed" along with decreased pleasure in hobbies, and feelings of guilt "everything that has happened is my fault'. Patient initially denied having had any suicidal ideations but later admitted to have likely having overdosed on over the counter diphenhydramine in a suicide attempt. He mentions that several weeks ago a 9 month relationship had ended which was unexpected and feeling guilty of not graduating on time. Denies rest of psychiaric ROS. Denies any perceptual disturbances or delusions. Currently continues to be very dysphoric and require inpatient psychiatric stabilization. Family psychiatric history: denies Past psychiatric history: denies previous diagnosis, psychiatric admissions, suicide attempts or self injurious behavior., no prior mental health services, no previous medication trials aside from zolpidem for insomnia. Substance use history: EToH use 1-2 times per week, THC "not too often", denies use of any other drugs. Past medical history: DM, HIV, HTN Allergies: piperacillin, tazobactam, ketorolac Social history: single, no children, domiciled with roommate, current in college , no service, no access to firearms. Collateral contact: (Milvia Scott - mother [phone]) Discussion nursing staff reported the patient with no behavioral issues has been calm, compliant with treatment. Patient was found lying hospital bed noted B, cooperative. Patient states that he is feeling physically better stating his sleeping has improved as well as his appetite, reports his mood has been "better" feeling less depressed denying suicide ideations at this time. Patient reports adequate energy concentration. Patient states that he was feeling very overwhelmed with work and school the day of the overdose and states wanting to feel better so that he can focus on his career. Patient denies any perceptional services or delusions at this time, rest of psychiatric review of systems negative. Discussion of starting bupropion was reviewed with patient as well as risks, benefits and alternatives, patient agrees. Patient agrees to voluntary admission. 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 Patient was started on medication regimen to target symptoms which he tolerated well with minimal side effects. Patient was admitted to a locked, inpatient psychiatric unit. Appropriate precautions were in place throughout patient's hospital stay. Patient was seen and examined on the unit by psychiatry. Psychotropic medications were adjusted. There was no evidence of any further suicidality nor homicidality on the inpatient unit. Patient's mood improved with the benefit of psychopharmacologic treatment and had no behavioral disturbance since admission. Counselor has arranged for follow up appointments for continuity of care as patient would be returning back to his residence/dorm at the [facility]. On the day of discharge: Patient seen and examined; chart reviewed. Case discussed with nurse and counselor. No behavioral issues overnight. On my examination today, the patient is agreeable to continue treatment and outpatient follow up appointments. He denies any suicidal or homicidal ideation, intent or plan on direct questioning and contracts for safety. I can elicit no mood symptoms; denies any audiovisual hallucinations. No delusional material verbalized today. He denies any side effects from medications. He has an understanding of the medication regimen and indication. No physical complaints. Suicide and violence risk assessment on day of discharge both suggest lower imminent risk, and the patient's level of function is adequate for planned level of outpatient care. Patient has maximized benefit from this inpatient psychiatric hospital stay and will be discharged with follow-up as arranged by counselor. Patient advised to return to psychiatric emergency room for any concerning psychiatric symptoms. Patient agrees with plan. - Discharge Discharge Date: 07/13/18 - Discharge Diagnosis (1) Major depressive disorder Code(s): F32.9 - Major depressive disorder, single episode, unspecified Status : Acute Discharge Disposition: Home - Discharge Instructions Discharge Diet: Heart Healthy Diet Activities You Can Perform: Regular- No Restrictions - Discharge Time > 30 minutes Mental Status Examination Appearance: Appropriate Consciousness: Alert Orientation: x4 Motor Activity: Normal gait Speech: Unremarkable Language: Adequate Fund of Knowledge: Inadequate Attention and Concentration: Adequate Memory: Unremarkable Mood: Appropriate Affect: Appropriate Thought Process & Associations: Intact, Goal directed, Linear Thought Content: Appropriate Hallucination Type: None Delusion Type: None Suicidal Ideation: No Suicidal Plan: No Suicidal Intention: No Homicidal Ideation: No Homicidal Plan: No Homicidal Intention: No Insight: Fair Judgment: Impulsive Discharge/Advance Care Plan - Results Vital Signs: Last Vital Signs Temp 98.8 F 07/13/18 05:40 Pulse 92 H 07/13/18 05:40 Resp 17 07/13/18 05:40 BP 121/59 L 07/13/18 05:40 Pulse Ox 100 07/13/18 05:40 Lab Results: Abnormal Lab Results 07/13/18 07/13/18 07:45 11:33 POC Glucose 109 129 H Laboratory Results Hemoglobin A1c 8.4 % (4.3-6.0) H 07/09/18 06:15 Triglycerides 104 mg/dL (42-150) 07/09/18 06:15 Cholesterol 191 mg/dL (120-200) 07/09/18 06:15 LDL Cholesterol, Calc 131 mg/dL (0-99) H 07/09/18 06:15 HDL Cholesterol 38.8 mg/dL (40.0-60.0) L 07/09/18 06:15 Summary of Procedures: none Pending Results: None - Medications Number of antipsychotic medications at discharge: 0 - Discharge Care Plan Goals to Promote Your Health: * To prevent worsening of your condition and complications * To maintain your health at the optimal level Directions to Meet Your Goals: Take your medications as prescribed Follow your dietary instruction Follow activity as directed Keep your appointments as scheduled Take your immunizations and boosters as scheduled If your symptoms worsen call your PCP, if no PCP go to Urgent Care Center or Emergency Room For 12/05 questions related to your inpatient stay or results of tests pending at discharge, please contact Dr. Guillaume Wood MD at Smoking is Dangerous to Your Health. Avoid second hand smoking
== END 2018-07-13 12:45 | disposition home or self-care (01) ==
LOC: H4EA 16:49
PROVIDERS: ADMIT Student in an Organized Health Care Education/Training Program; ATTEND Student in an Organized Health Care Education/Training Program